=== PATIENT | male | born 1940 | race Caucasian/White ===

== ENCOUNTER 2021-10-22 10:50 | Inpatient (IN) | payer MEDICARE ==
[~2021-10-22] VITALS: Ht 172.7 cm; Wt 103.5 kg
[~2021-10-22 10:50] MED LIST: ACET-2650 PO; ALPRAZolam 0.25 MG (XANAX) TAB PO PRN; ATOR40TA70 PO; BISACODYL 10 MG SUPP (DULCOLAX) PR PRN; CALCIUM CARBONATE 500 MG (TUMS) TAB.CHEW PO PRN; CARB1TAB40 PO; CLOP75TA69 PO; DOCUSATE SODIUM 100 MG (COLACE) CAP PO PRN; FLEET ENEMA ADULT 1 EA BTL PR PRN; LACTULOSE SYRUP 10GM/15ML (ENULOSE) 30ML UDC PO PRN; LISI20TA26 PO; LOPERAMIDE 2 MG (IMODIUM) TABLET PO PRN; MELATONIN 3 MG TABLET PO PRN; OMEP10CA5 PO; diphenhydrAMINE 25 MG TAB (BENADRYL) PO PRN; guaiFENesin/CODEINE (ROBITUSSIN AC) 10ML UDC PO PRN
[2021-10-22 11:00] VITALS: BP 133/84
--- OUTSIDE RECORDS SUMMARY | 2021-10-22 11:07 | XMS REPORT | Encounter Summary ---
Author Author [facility] Organization [facility] Address Unknown Phone Unavailable Care Team Providers Care Supervisor Acoustical Tile Carpenters Name Role Phone Ivis King NP PCP Elida Alvarado MD Unavailable Reason for Visit * Reason Onset Date Comments Medication Refill 10/08/2021 Encounter Details Care Team Description Date Type Department Mingo Gautam MD [address] [place] [address] 10/08/2021 Refill Neurology: [facility] [address] [facility] 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 encounter Functional Status Date of Assessment Functional Status Response 06/26/2021 Does the patient have a hearing impairment: Yes 06/26/2021 Does the patient have a visual impairment: Yes 06/26/2021 Does the patient have impaired ambulation: Yes 06/26/2021 Does the patient have an activity of daily living No (ADL) impairment: 06/26/2021 Does the patient have an instrumental activity of Ye s daily living (IADL) impairment: Date of Assessment Cognitive Status Response 06/26/2021 Does the patient have a cognitive impairment: No documented as of this encounter Ordered Prescriptions Start Date End Date Prescription Sig Dispensed Refills 10/08/2021 carbidopa-levodopa CR Take two 180 tablet 5 (SINEMET CR) 25/100 mg tablets by tablet mouth three times daily. documented in this encounter Plan of Treatment Not on filedocumented as of this encounter Visit Diagnoses Not on filedocumented in this encounter Discontinued Medications Start Date End Date Medication Sig Discontinue Reason 06/26/2021 10/08/2021 carbidopa/levodopa CR Take one Reorder (SINEMET CR) 25/100 mg tablet by tablet mouth three times daily. documented as of this encounter Additional Health Concerns Noted Time Assessment 08/07/2021 2:56 PM CDT A fall risk assessment has been complet ed for the patient 08/07/2021 2:55 PM CDT PHQ-2 Depression Total Score: 1 documented as of this encounter Care Teams Start Date End Date Supervisor Acoustical Tile Carpenters Relationship Specialty 12/09/20 Ivis King NP PCP - General Nurse [address] [place] [address] 12/09/20 Elida Alvarado MD Neurology [address] [place] [id number] documented as of this encounter
--- OUTSIDE RECORDS SUMMARY | 2021-10-22 11:07 | XMS REPORT | Clinical Summary ---
Author Author [facility] Organization [facility] Address Unknown Phone Unavailable Care Team Providers Care Family Nurse Practitioner Name Role Phone Ivis King NP PCP Christiano, Elida TAVARES Unavailable Source Comments Some departments are not documenting in the electronic medical record. If you d o not see the information that you expected, contact Release of Information in [facility] [employer] Information Management department at [phone] for further assistan ce in locating additional records.[facility] Allergies Comments Active Allergy Reactions Severity Noted Date Adhesive Tape-Silicones RASH Medium 2015 Bad rash all over Penicillins RASH High 02/12/2012 Sulfa (Sulfonamide HIVES, High 02/12/2012 Antibiotics) UNKNOWN Medications End Date Status Medication Sig Dispensed Refills Start Date Active carvediloL (COREG) 3.125 Take 3.125 mg 0 06/21 mg tablet by mouth 1 twice daily with meals. Active lisinopriL (ZESTRIL) 20 Take 20 mg by 0 mg tablet mouth twice 1 daily. Active rosuvastatin (CRESTOR) 5 Take 10 mg by 0 05/28 mg tablet mouth daily. 0 Active citalopram (CELEXA) 10 mg TAKE 1 TABLET 0 tablet BY MOUTH ONCE 1 DAILY FOR DEPRESSION Active albuterol sulfate (PROAIR Inhale 2 0 HFA) 90 mcg/actuation HFA puffs by 1 aerosol inhaler mouth into the lungs every 6 hours as needed. Active omeprazole DR (PRILOSEC) Take 10 mg by 0 09/26 10 mg capsule mouth every 8 24 hours as needed. Active aspirin EC 81 mg tablet Take 81 mg by 0 mouth daily. Take with food. Active docusate (COLACE) 100 mg Take 100 mg 0 capsule by mouth twice daily. Active carbidopa-levodopa CR Take two 180 tablet 5 09/24 (SINEMET CR) 25/100 mg tablets by 1 tablet mouth three times daily. 10/08/2021 Discontinued (Reorder) carbidopa/levodopa CR Take one 90 tablet 5 (SINEMET CR) 25/100 mg tablet by 1 tablet mouth three times daily. Active Problems Not on file Encounters Care Team Description Date Type Specialty Mingo Gautam MD 10/08/2021 Refill Neurology Mingo Gautam MD Parkinsonism, unspecified Parkinsonism t ype (HCC) (Primary Dx) 08/07/2021 Office Visit Neurology 08/07/2021 Travel from Last 3 Months Immunizations Name Administration Dates Next Due COVID-19 (MODERNA), mRNA 12/19/2020, 11/15/2020 vacc, 100 mcg/0.5 mL (PF) Surgical History Surgery Date Site/Laterality Comments HERNIA REPAIR x2 PROSTATE SURGERY 10/25/2005 - 10/24/2006 Medical History Medical History Date Comments Arthritis Hypertension Abnormal involuntary movement Ischemic stroke (HCC) Meningioma (HCC) Family History Medical History Relation Name Comments Cancer Father Cancer Mother Parkinson's Neg Hx Tremor Neg Hx Relation Name Status Comments Father Mother Social History Date Tobacco Use Types Packs/Day Years Used Never Smoker Smokeless Tobacco: Never Used Comments Alcohol Use Standard Drinks/Week Not Currently 0 (1 standard drink = 0.6 o z pure alcohol) Sex Assigned at Date Recorded 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 Vital Signs Reading Time Taken Comments Vital Sign 152/79 08/07/2021 2:50 PM CDT Blood Pressure 67 08/07/2021 2:50 PM CDT Pulse - - Temperature - - Respiratory Rate - - Oxygen Saturation - - Inhaled Oxygen Concentration 104.3 kg (230 lb) 08/07/2021 2:50 PM CDT Weight 172.7 cm (5' 8") 06/26/2021 1:32 PM CDT Height 34.97 06/26/2021 1:32 PM CDT Body Mass Index Plan of Treatment Health Maintenance Due Date Last Done Comments MEDICARE ANNUAL WELLNESS 1940 VISIT DTAP/TDAP VACCINES (1 - 1957 Tdap) PHYSICAL (COMPREHENSIVE) 1957 EXAM SHINGLES RECOMBINANT 1989 VACCINE (1 of 2) PNEUMONIA (PPSV23) 2004 VACCINE (1 of 1 - PPSV23) INFLUENZA VACCINE 05/25/2021 COVID-19 VACCINE (3 - 06/18/2021 12/19/2020, Booster for Moderna 11/15/2020 series) Results Not on filefrom Last 3 Months Insurance Type Payer Benefit Subscriber ID Effective Phone Address Plan / Dates Group Medicare MEDICARE MEDICARE [id number] 2004-P [phone] [address] [place] [address] Medicare BCBS [place] BCBS [id number] 2020-P [phone] [id number] [place] [address] Advance Directives 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
--- NOTE | 2021-10-22 12:14 | Occupational Therapy Eval ---
OT Evaluation-General/PLF Medical Diagnosis Admission Date Oct 22, 2021 at 10:50 Medical Diagnosis: s/p ORIF for R ankle fx Onset Date: Oct 16, 2021 Therapy Diagnosis Therapy Diagnosis: Decreased adl status, impaired balance, endurance, strength, cognition Precautions Precautions/Isolations: Fall Prevention, Standard Precautions Weight Bear Status RLE NWB without boot, WBAT with cam boot Referral Physician: Anali Referral Reason: Evaluation/Treatment Medical History Pertinent Medical History: CVA, HTN, Parkinson's Current History Pt reports falling in between steering wheel and seat in tractor after legs gave out. Found to have R ankle fracture. S/p ORIF, WBAT with cam boot. Pt also with mobile cardiac telemetry. Per instructions provided with patient, equipment able to get wet in shower but no submerging in tub/pool. Reviewed History: Yes Social History Home: Single Level Current Living Status: Spouse Entry Into Home: Jonathan Reports living with his in a single story home. Indep with adls prior to ad mission. Reports he cooks simple meals such as breakfast, otherwise completes all other iadls. Pt uses a FWW inside the home and a cane/walking stick outside of the home. He reports having a Stroke in December 2020 with no residual effects. 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 2-Wcohefdahg-zvpzeby completes the activity by him/herself with no assistance from a helper. 5-Set-up or Clean-up Assistance-helper sets up or cleans up; patient completes activity. [place] assists only prior to or following the activity. 4-Supervision or Touching Assistance-helper provides verbal cues and/or touching/steadying and/or contact guard assistance as patient completes activity. Assistance may be provided throughout the activity or intermittently. 3-Partial/Moderate Assistance-helper does LESS THAN HALF the effort. [place] lifts, holds or supports trunk or limbs, but provides less than half the effort. 2-Substantial/Maximal Assistance-helper does MORE THAN HALF the effort. [place] lifts or holds trunk or limbs and provides more than half the effort. 9-Ytnigvruh-vitvqy does ALL the effort. Patient does none of the effort to co mplete the activity. Or, the assistance of 2 or more helpers is required for the patient to complete the activity. If activity was not attempted, code reason: 7-Patient Refused. 9-Not Applicable-not attempted and the patient did not perform the activity before the current illness, exacerbation or injury. 10-Not Attempted due to Environmental Limitations-(lack of equipment, weather restraints, etc.). 88-Not Attempted due to Medical Conditions or Safety Concerns. Self Care: Independent Functional Cognition: Independent DME/Equipment: Grab Bars, Shower Drive Self: Yes OT Current Status Subjective Denies pain, agreeable to eval/treatment. Co-treat with PT for part of session secondary to poor patient mobility, strength, endurance, severe debility, coordinate UE and LE with activity, safety and reduce risk of falls. Appearance Left supine in bed, all needs within reach. Mental Status/Objective Patient Orientation: Person, Place Attachments: Telemetry, Other-See Comments (mobile cardiac telemetry-can get wet) Current Hearing Aids: No Dentures/Partials: No Hand Dominance: Right Upper Extremity ROM Impaired R shoulder AROM, reports due to arthritis. ~110 degrees Elbow-distally WNL Upper Extremity Strength R shoulder: 3-/5 L shoulder: 3+/5 Elbow-distally: WFL ADL-Treatment Eating (QC): 5 Oral Hygiene (QC): 3 Shower/Bathe Self (QC): 2 Upper Body Dressing (QC): 10 Lower Body Dressing (QC): 3 On/Off Footwear (QC): 4 Toileting Hygiene (QC): 2 Partial sponge bath performed seated in w/c. Cues needed to initiate task. Mod A for balance as he stood to wash oren area, dependent to wash backside. Poor standing tolerance and compliance to NWB limits pt's ability to complete task in standing and thus would require assist to wash below thighs if performed at baseline (standing). LE's not addressed. In sitting pt is able to demonstrate ability to cross LLE to don/doff sock and thus likely able to wash feet in same manor. RLE with splint/bandage. With extra time he was able to thread BLE's into brief. Mod a required for clothing management. Per chart, pt WBAT with cam boot, yet boot not currently available. He verbalizes that his will be bringing extra clothing and boot later in day. Other Treatments Pt performed static standing in parallel bars, unable to maintain NWB. Pt may do better once cam boot is available. Several cues needed for adherence and safety throughout all transfers. He fatigues easily and requires several lengthy rest breaks. Initially sit<>stand: min A. As fatigue worsens, pt requires more lifting assist; mod-max a. Education OT Patient Education: Correct positioning, Disease process, Energy conservati on, Modified ADL techniques, Progress toward Goal/Update tx plan, Purpose of tx/functional activities, Reviewed precautions, Rehab process, Safety issues, Transfer techniques, W/C management Teaching Recipient: Patient Teaching Methods: Demonstration, Discussion Response to Teaching: Verbalize Understanding, Return Demonstration, Reinforcement Needed OT Short Term Goals Short Term Goals Time Frame: Oct 31, 2021 Eatin Oral hygiene: 5 Toileting hygiene: 3 Shower/bathe self: 3 Upper body dressin Lower body dressin Putting on/taking off footwear: 3 (including cam boot) OT City Manager Goals Senior Care Goals Time Frame: Nov 12, 2021 Eating (QC): 6 Oral Hygiene (QC): 6 Toileting Hygiene (QC): 5 Shower/Bathe Self (QC): 5 Upper Body Dressing (QC): 6 Lower Body Dressing (QC): 5 On/Off Footwear (QC): 5 1=Demonstrate adherence to instructed precautions during ADL tasks. 2=Patient will verbalize/demonstrate understanding of assistive devices/modifications for ADL. 3=Patient will improve strength/tolerance for activity to enable patient to perform ADL's. OT Education/Plan Problem List/Assessment Assessment: Decreased Activ Tolerance, Decreased Safety Aware, Decreased UE Strength, Impaired Cognition, Impaired Funct Balance, Impaired I ADL's, Impaired Self-Care Skills, Restricted Funct UE ROM Discharge Recommendations Plan/Recommendations: Continue POC Therapy Discharge Recommendati: Scheduled Assistance, Homemaker Support, Home & Family, Post Acute OT Equpiment Recommendations-D/C: Bath Chair, Toilet Riser Target Placement Home health with family support Treatment Plan/Plan of Care Treatment,Training & Education: Yes Patient would benefit from OT for education, treatment and training to promote independence in ADL's, mobility, safety and/or upper extremity function for ADL's. Plan of Care: ADL Retraining, Functional Mobility, Group Exercise/Act as Ind, Orthotic Fitting/Training, UE Funct Exercise/Act, W/C Management Training Treatment Duration: Nov 12, 2021 Frequency: At least 5 of 7 days/Wk (IRF) Estimated Hrs Per Day: 1.5 hours per day Agreement: Yes Time/GCodes Start Time: 11:00 Stop Time: 12:15 Total Time Billed (hr/min): 75 Billed Treatment Time 1 visit EVM (10 min) ADL x2 (35 min) FA x2 (30 min) PT eval from [id number], OT eval from [id number], co-treated from [id number] Rosalee Laguna OT Oct 22, 2021 12:14
--- NOTE | 2021-10-22 12:47 | Physical Therapy Evaluation ---
PT Evaluation-General Medical Diagnosis Admission Date Oct 22, 2021 at 10:50 Medical Diagnosis: right ankle fx, ORIF Onset Date: Oct 16, 2021 Therapy Diagnosis Therapy Diagnosis: impaired mobility, strength, endurance Precautions Precautions/Isolations: Fall Prevention, Standard Precautions Weight Bear Status Patient is NWB on the right leg without the CAM boot and apparently is weight bearing on the right leg with the CAM boot but is unclear how much Referral Physician: Elsi Briones DO Reason for Referral: Evaluation/Treatment Medical History Pertinent Medical History: CVA, HTN, Parkinson's Reviewed History: Yes Social History Home: Single Level Current Living Status: Spouse Entry Into Home: Ramp Prior Prior Level of Function SCALE: Activities may be completed with or without assistive devices. 7-Jtwtuutaoe-qfgqplj completes the activity by him/herself with no assistance from a helper. 5-Set-up or Clean-up Assistance-helper sets up or cleans up; patient completes activity. [place] assists only prior to or following the activity. 4-Supervision or Touching Assistance-helper provides verbal cues and/or touching/steadying and/or contact guard assistance as patient completes activity. Assistance may be provided throughout the activity or intermittently. 3-Partial/Moderate Assistance-helper does LESS THAN HALF the effort. [place] lifts, holds or supports trunk or limbs, but provides less than half the effort. 2-Substantial/Maximal Assistance-helper does MORE THAN HALF the effort. [place] lifts or holds trunk or limbs and provides more than half the effort. 1-Ihiizcbbd-btzopc does ALL the effort. Patient does none of the effort to complete the activity. Or, the assistance of 2 or more helpers is required for the patient to complete the activity. If activity was not attempted, code reason: 7-Patient Refused. 9-Not Applicable-not attempted and the patient did not perform the activity before the current illness, exacerbation or injury. 10-Not Attempted due to Environmental Limitations-(lack of equipment, weather restraints, etc.). 88-Not Attempted due to Medical Conditions or Safety Concerns. Bed Mobility: 6 Transfers (B,C,W/C): 6 Gait: 6 Indoor Mobility (Ambulation): Independent Prior Devices Use: Walker used a walker in the home and cane/walking stick outside the home PT Evaluation-Current Subjective [facility], agrees to PT, has no complaints of pain. Will be co-treating with OT for part of tx due to poor patient mobility, strength, endurance, severe debility, coordinate UE and LE with activity, safety and reduce risk of falls. Pt/Family Goals to be independent at home Objective Patient Orientation: Person, Place, Situation right ankle splint ROM/Strength ROM Lower Extremities WNL, right ankle not tested Strength Lower Extremities LLE (hip flexion 3+/5, knee flexion 5/5, knee extension 5/5, dorsiflexion 4/5), RLE (hip flexion 3+/5, knee flexion 5/5, knee extension 5/5) Sensory Vision: Functional Hearing: Impaired Hand Dominance: Right Sensation Right Lower Extremit: Intact Sensation Left Lower Extremity: Intact Transfers Roll Left & Right (QC): 6 Sit to Lying (QC): 3 Lying to Sitting/Side of Bed(Q: 3 Sit to Stand (QC): 3 Chair/Cqv-hq-Hbkbv Xfer(QC): 3 Toilet Transfer (QC): 3 Car Transfer (QC): 3 Patient performs rolling independently, supine to sit mod assist, sit to supine min assist, sit <-> stand min assist, transfers min assist, car transfer min assist. Patient needs a lot of cues for positioning and safety, some assist with moving walker. Gait Does the Patient Walk?: Yes Mode of Locomotion: Walk Anticipated Mode of Locomotion: Walk Walk 10 feet (QC): 88 Walk 50 ft with 2 Turns(QC): 88 Walk 150 ft (QC): 88 Walking 10ft/uneven surface-QC: 88 Distance: 2' Gait Assistive Device: Parallel Bars Comments/Gait Description Patient can ambulate 2' in the parallel bars with CGA. Patient is not able to maintain NWB effectively (doesn't have CAM boot here at this time) so this activity was stopped. Wheelchair Training Does the Pt Use a Wheelchair?: Yes Distance: 150' Wheel 50 ft with 2 turns (QC): 4 Wheel 150 ft (QC): 4 Type of Wheelchair: Manual Stairs 1 Step (curb) (QC): 88 4 Steps (QC): 88 12 Steps (QC): 88 Balance Sitting Static: Normal Sitting Dynamic: Normal Standing Static: Poor Standing Dynamic: Poor Picking up an Object (QC): 88 Treatment Patient stood in the parallel bars a couple of times for about a minute each time. Patient also had to have a BM after getting here, transferred to commode with min assist, was dressed partway, stood when done and total assist for cleaning and completed dressing. PT performed bed mobility and transfer training, ambulation, WC mobility, standing and positioning during toileting and dressing, standing in parallel bars, OT performed toileting, dressing, UE positioning and safety during activity. Assessment/Needs Patient in bed post tx with nurse call, phone, tray, all needs met. Patient has impaired mobility, strength, endurance. He has a hard time maintaining NWB on right leg. Rehab Potential: Fair PT Short Term Goals Short Term Goals Time Frame: Oct 29, 2021 Roll Left & Right: 6 Sit to lyin Lying to sitting on side of be: 3 Sit to stand: 4 Chair/zeh-jm-csldi transfer: 4 Walk 10 feet: 4 PT [employer] Goals [employer] Goals PT [employer] Goals Time Frame: Nov 12, 2021 Roll Left & Right (QC): 6 Sit to Lying (QC): 6 Lying-Sitting on Side/Bed(QC): 6 Sit to Stand (QC): 4 (SBA) Chair/Xee-mk-Nskzh Xfer(QC): 4 (SBA) Toilet Transfer (QC): 4 (SBA) Car Transfer (QC): 4 (SBA) Does the Patient Walk: Yes Walk 10 feet (QC): 4 (GA) Walk 50ft with 2 Turns (QC): 4 (CGA) Walk 150 ft (QC): 88 Walking 10ft on Uneven Surface: 4 (CGA) 1 Step (curb) (QC): 88 4 Steps (QC): 88 12 Steps (QC): 88 Picking up an Object (QC): 4 (CGA) Wheel 50 feet with 2 turns (QC: 6 Wheel 150 feet: 6 PT Plan Problem List Problem List: Activity Tolerance, Functional Strength, Safety, Balance, Gait, Transfer, Bed Mobility, ROM Treatment/Plan Treatment Plan: Continue Plan of Care Treatment Plan: Bed Mobility, Education, Functional Activity Nona, Functional Strength, Group Therapy, Gait, Safety, Therapeutic Exercise, Transfers Treatment Duration: Nov 12, 2021 Frequency: At least 5 of 7 days/Wk (IRF) Estimated Hrs Per Day: 1.5 hours per day Patient and/or Family Agrees t: Yes Safety Risks/Education Patient Education: Gait Training, Transfer Techniques, Reviewed Precautions, Correct Positioning, W/C Management, Safety Issues Teaching Recipient: Patient Teaching Methods: Demonstration, Discussion Response to Teaching: Reinforcement Needed Discharge Recommendations Plan Patient will perform bed mobility and transfer training, balance and endurance training, functional strengthening, gait training, and education, to improve functional mobility and independence at home. Therapy Discharge Recommendati: Scheduled Assistance, Home & Family, Post Acute PT Time/GCodes Time In: 1050 Time Out: 1215 Total Billed Treatment Time: 75 Total Billed Treatment 1 visit EVM 10' FA 65' PT eval from [id number], OT eval from [id number], co-treated from [id number] KAPIL CHÁVEZ PT Oct 22, 2021 12:47
--- NOTE | 2021-10-22 12:51 | PM&R Post Admission Assessment ---
PM&R Date of Visit: Oct 22, 2021 Time of Visit: 12:45 History of Present Illness CC: Right ankle ORIF with subacute CVA HPI: This is a male patient from [place] who presents from [facility] s/p ORIF of the right ankle due to a fracture sustained in fall getting out of his tractor. His hospital course was complicated due to a subacute stroke on the right side but not the cause of the fall or right-sided weakness. Current level of functioning will need aggressive therapy with use of assistive devices to return to independent living with his . 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 He will use a cam boot. I did review carotid ultrasound and entire cardiology work-up and they recommended statin therapy and close monitoring of bradycardia. Past Cylruju-Zaarbu-Ebdcrr Hx Past Med/Social Hx: Reviewed Nursing Past Med/Soc Hx, Reviewed and Corrections made Patient Social History Marrital Status: Employed/Student: retired ([employer]) Alcohol Use: Denies Use Smoking Status: Former Smoker Immunizations Up To Date Date of Influenza Vaccine: Jul 15, 2021 Past Medical History Surgeries: Orthopedic Respiratory: Sleep Apnea Currently Using CPAP: No Currently Using BIPAP: No Cardiac: High Cholesterol, Hypertension Neurological: Parkinson's Disease, Stroke Genitourinary: Prostate Problems, Renal Failure Musculoskeletal: Degenerate Disk Disease, Arthritis Cancer: Prostate What Type of Treatment Did You: Surgical Intervention Skin/Integumentary: Eczema Self Care: Independent Functional Cognition: Independent Drive Self: Yes PM&R Allergy/Meds/Data Review Allergies Coded Allergies: No Allergy Information Available (Unverified , 10/21/21) Home Medications Scheduled Atorvastatin Calcium (Atorvastatin Calcium), 40 MG PO HS, (Reported) Carbidopa/Levodopa (Carbidopa-Levo ER 25-100 Tab), 1 EACH PO TID, (Reported) Clopidogrel Bisulfate (Plavix), 75 MG PO DAILY, (Reported) Lisinopril (Lisinopril), 20 MG PO DAILY, (Reported) Scheduled PRN Acetaminophen (Tylenol Arthritis), 650 MG PO BID PRN for PAIN-MILD (1-4), (Reported) Omeprazole (Omeprazole), 10 MG PO DAILY PRN for HEARTBURN, (Reported) Current Medications Current Medications Reviewed Review of Systems Constitutional: see HPI, malaise, weakness EENTM: no symptoms reported Respiratory: no symptoms reported Cardiovascular: no symptoms reported Gastrointestinal: no symptoms reported Genitourinary: incontinence Musculoskeletal: back pain, joint pain Skin: no symptoms reported Psychiatric/Neurological: Anxiety, Depressed, Weakness All Other Systems Reviewed Negative Unless Noted: Yes Physical Exam Physical Exam Vital Signs Vital Signs - First Documented 10/22/21 11:00 Temp 36.2 Pulse 73 Resp 18 B/P (MAP) 133/84 (100) Pulse Ox 99 O2 Delivery Room Air Capillary Refill : Height, Weight, BMI Height: '" Weight: lbs. oz. kg; BMI Method: General Appearance: No Apparent Distress, WD/WN, Chronically ill, Obese Eyes: Bilateral Eye Normal Inspection, Bilateral Eye PERRL HEENT: PERRL/EOMI, Normal ENT Inspection, Pharynx Normal Neck: Full Range of Motion, Normal Inspection, Non Tender, Supple, Carotid Bruit Respiratory: Chest Non Tender, Lungs Clear, Normal Breath Sounds, No Accessory Muscle Use, No Respiratory Distress Cardiovascular: Regular Rate, Rhythm, No Edema, No Gallop, No JVD, No Murmur, Normal Peripheral Pulses Gastrointestinal: Normal Bowel Sounds, No Organomegaly, No Pulsatile Mass, Non Tender, Soft Back: Normal Inspection, No CVA Tenderness, No Vertebral Tenderness Extremity: Normal Capillary Refill, Normal Inspection, Normal Range of Motion (Except right ankle), Non Tender, No Calf Tenderness, No Pedal Edema Neurologic/Psychiatric: Alert, Oriented x3, No Motor/Sensory Deficits, Normal 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, 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 Norm as Tested, Abnormal Gait, Motor Weakness Skin: Normal Color, Warm/Dry Lymphatic: No Adenopathy PM&R Medical Assessment & Plan REHAB/MEDICAL ASSESSMENT AND PLAN: REHAB IMPAIRMENT GROUP: Right ankle fracture ETIOLOGIC DIAGNOSIS: Right ankle fracture The comorbidities that impact the patients function and/or functional outcome by: Advanced age, Parkinson's, fall risk, recent CVA REHAB PLAN: The patient is being admitted to our comprehensive inpatient rehabilitation facility and can tolerate the intensity of service consisting of at least: 180 minutes of therapy a day, 5 out of 7 days a week Rehab treatment will consist of: PT and OT will focus on regaining ambulatory function with use of Cam boot and increase independence in ADLs in order to return back to independent living The patient/family has a good understanding of our discharge process and will benefit from an interdisciplinary inpatient rehabilitation program. The patient has potential to make improvement and is in need of at least two of the following multidisciplinary therapies including but not limited to physical, occupational, speech, and prosthetics and orthotics. Additionally the patient will need services from respiratory, nutritional services, wound care, psychology, etc. (Customize this to each patient). Given the patients complex condition and risk of further medical complications, rehabilitation services cannot be safely or effectively provided at a lower level of care such as a custodial facility. BARRIERS TO DISCHARGE: Advanced age ESTIMATED LOS: 10 days DISPOSITION: Home RELEVANT CHANGES SINCE PREADMISSION SCREENING: I have compared the patients medical and functional status at the time of the preadmission screening and there are: No changes PROGNOSIS: Fair REHABILITATION GOALS: 1. PT and OT will focus on regaining ambulatory function with use of Cam boot and increase independence in ADLs in order to return back to independent living All the above goals were reviewed with the patient and he/she is in agreement. By signing this document, I acknowledge that I have personally performed a full physical examination on this patient within 24 hours of admission to this inpatient rehabilitation facility and have determined the patient to be able to tolerate the above course of treatment at an intensive level for a reasonable period of time. I will be completing a detailed individualized Plan of Care for this patient by day #4 of the patients stay based upon the Preadmission Screen, the Post-Admission Evaluation, and the therapy evaluations. Admission Dx/Comorbidities: (1) Ankle fracture, right ICD Codes: S82.891A - Other fracture of right lower leg, initial encounter for closed fracture (2) Parkinsons ICD Codes: G20 - Parkinson's disease (3) Bradycardia ICD Codes: R00.1 - Bradycardia, unspecified (4) CVA (cerebral vascular accident) ICD Codes: I63.9 - Cerebral infarction, unspecified Assessment/Plan Assessment and Plan Assess & Plan/Chief Complaint Assessment: 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 Hypertension Hyperlipidemia FRANK Prostate cancer history Urinary incontinence Plan: Inpatient rehab protocol Supportive care Pain control VANNESA PARDO DO Oct 22, 2021 12:51
[2021-10-22] MEDS ORDERED: CARBIDOPA 25 MG PO SCH (13:00)
--- NOTE | 2021-10-22 13:24 | ST Cognitive Linguistic Eval ---
Speech Evaluation-General Medical Diagnosis s/p ORIF for R ankle fx Onset Date: Oct 16, 2021 Therapy Diagnosis Therapy Diagnosis: Cognitive Linguistic Function WNL Precautions Precautions: Fall Precautions/Isolations: Standard Precautions Referral Referring Physician: Dr. Briones Reason for Referral: Evaluation/Treatment Medical History Pertinent Medical History: CVA, HTN, Parkinson's Current History The patient is an 80 year-old male with a past medical history of high cholesterol, HTN, Parkinson's disease, stroke, renal failure, degenerative disk disease, arthrtis, and eczema, who presents to [facility] from [facility] following an ORIF of the right ankle due to a fracture sustained in fall getting out of his tractor. His hospital course was complicated due to a subacute stroke on the right side but not the cause of the fall or right-sided weakness. Reviewed History: Yes Social History Current Living Status: Spouse Speech PLF-Current Status Prior Level of Function The patient wishes to return home with the aid of his . Subjective The patient was lying in his bed, awake and alert upon entrance to his room. The patient has a family member present at bedside. The patient denied challenges or difficulties with his speech, language, cognition or swallowing. Language Eval: Auditory Comprehends Simple Yes/No Ques: Functional Indent/Objects Multiple Rizo: Functional Ident/Pics in Multiple Rizo: Functional Follows 1-Step Commands: Functional Follows Complex Directions: Functional Follows General Conversations: Functional Language Eval: Verbal Language Completes Spontaneous Greeting: Functional Produces Auto, Serial Info: Functional Imitates Simple Words/Phrases: Functional Word Finding: Mild Requests Basic Needs: Functional States Basic Personal Info: Functional Expresses Complex Ideas: Functional Language Evaluation: Reading Comprehends Single Nouns: Functional Follows Simple Written Direct: Functional Language Evaluation: Writing Writes to Simple Dictation: Functional Cognitive Patient Orientation The patient is independently oriented to self, location, city, month, day of w takot[place], date, and year. Objective Cognitive Domain Attention: WNL Memory: Mild Problem Solving: Functional Executive Functions: WNL Visuospatial Skills: WNL Composite Severity Rating: WNL Clock Drawing Severity Rating: WNL Objective Formal/Standardized Tests [facility] Mental Status ([facility]) Results The patient displayed a result of +29/30 on the UMS correlating to a neurocognitive function within normal limits. Oral Motor/Speech Production The patient does not display dysarthria or apraxia of speech throughout the evaluation. The patient remains 100% intelligible in known and unknown contexts. Impression The patient is an 80 year-old male, who presents with neurocognitive function within normal limits. The patient displayed one error with recall of five words following an approximate five minute delay. The patient was able to recall the missing item with a category cue. No additional errors were demonstrated. To note, the patient does state he wears reading glasses. Speech Patient Assess Expression of Ideas/Wants: Exhibits (3) Understanding Verbal Content: Understands (4) Brief Interview-Mental Status: Yes Repetition of Three Words: Three (3) Temporal Orientation: Year: Correct (3) Temporal Orientation: Month: Accurate within 5 days(2) Temporal Orientation: Day: Correct (1) Recall : Wear to say "Sock": Yes, no cue required (2) Recall : Color: Yes, no cue required (2) Recall : Bed: Yes,after cueing (1) Memory/Recall Ability: Current season, That he or she is in a hsp/hsp unit Speech-Plan Treatment Plan Speech Therapy Treatment Plan: Discontinue ST Frequency: 1 time per week Estimated Hrs Per Day: .5 hour per day Rehab Potential: Fair Barriers to Learning: None identified. Pt/Family Agrees to Plan: Yes Safety Risks/Education Teaching Recipient: Patient, Family Teaching Methods: Discussion Response to Teaching: Verbalize Understanding Education Topics Provided: Results of ANGEL Plan of Care Time Speech Therapy Time In: 12:15 Speech Therapy Time Out: 12:45 Total Billed Time: 30 Billed Treatment Time 1, DIRK WALKER [facility] Oct 22, 2021 13:24
[2021-10-22] MEDS: SINEMET 25/100 (CARBIDOPA/LEVODOPA) TAB PO SCH ×2 (13:45→20:08)
[2021-10-22] MEDS: DOCUSATE SODIUM 100 MG (COLACE) CAP PO SCH ×3 (14:11→19:37)
[2021-10-22] MEDS: SENNA W/DOCUSATE (SENOKOT S) TABLET PO SCH ×3 (14:11→19:37)
[2021-10-22] MEDS: polyethylene glycoL POWDER 17 GM (MIRALAX) PACK PO SCH ×3 (14:11→19:30)
[2021-10-22 20:00] VITALS: BP 131/89
[2021-10-23 07:22] VITALS: BP 158/74
[2021-10-23] MEDS: lisINopril 20 MG (PRINIVIL) TABLET PO SCH (08:22)
[2021-10-23] MEDS: CLOPIDOGREL 75 MG (PLAVIX) TABLET PO SCH (08:22)
[2021-10-23] MEDS: SINEMET 25/100 (CARBIDOPA/LEVODOPA) TAB PO SCH ×3 (08:22→20:11)
[2021-10-23] MEDS: PANTOPRAZOLE 20 MG TABLET (PROTONIX) PO SCH (08:23)
[2021-10-23] MEDS: DOCUSATE SODIUM 100 MG (COLACE) CAP PO SCH ×2 (08:26→20:12)
[2021-10-23] MEDS: ACETAMINOPHEN 325 MG TABLET PO PRN (08:26)
[2021-10-23] MEDS: polyethylene glycoL POWDER 17 GM (MIRALAX) PACK PO SCH ×2 (08:27→20:11)
[2021-10-23] MEDS: SENNA W/DOCUSATE (SENOKOT S) TABLET PO SCH ×2 (08:27→20:12)
--- NOTE | 2021-10-23 09:14 | Physical Therapy Daily Note ---
PT Daily Note-Current Subjective Patient rates pain in right ankle at 4/10 upon PT arrival, agreeable to treatment. Mental Status Patient Orientation: Person, Place, Time, Situation Transfers SCALE: Activities may be completed with or without assistive devices. 5-Acwgujnapr-rtnwyqk completes the activity by him/herself with no assistance from a helper. 5-Set-up or Clean-up Assistance-helper sets up or cleans up; patient completes activity. [place] assists only prior to or following the activity. 4-Supervision or Touching Assistance-helper provides verbal cues and/or touching/steadying and/or contact guard assistance as patient completes activity. Assistance may be provided throughout the activity or intermittently. 3-Partial/Moderate Assistance-helper does LESS THAN HALF the effort. [place] lifts, holds or supports trunk or limbs, but provides less than half the effort. 2-Substantial/Maximal Assistance-helper does MORE THAN HALF the effort. [place] lifts or holds trunk or limbs and provides more than half the effort. 6-Nrqmcgxqf-ulverk does ALL the effort. Patient does none of the effort to complete the activity. Or, the assistance of 2 or more helpers is required for the patient to complete the activity. If activity was not attempted, code reason: 7-Patient Refused. 9-Not Applicable-not attempted and the patient did not perform the activity before the current illness, exacerbation or injury. 10-Not Attempted due to Environmental Limitations-(lack of equipment, weather restraints, etc.). 88-Not Attempted due to Medical Conditions or Safety Concerns. Roll Left & Right (QC): 4 Sit to Lying (QC): 4 Lying to Sitting/Side of Bed(Q: 4 Sit to Stand (QC): 3 Chair/Whk-sl-Bqdck Xfer(QC): 3 Weight Bearing Right Lower Extremity: Right Non Weight Bearing othPatient is NWB on the right leg without the CAM boot and apparently is weight bearing on the right leg with the CAM boot but is unclear how much; Clarification from PT evaluation. After gait training, nurse brought Ortho notes from [facility] to this PT and states that "CAM boot is not appropriate at this time". Therefore, patient is still NWB in the right LE until follow up with orthopedic physician. Gait Training Distance: 160 Walk 10 feet (QC): 4 Walk 50 ft with 2 Turns(QC): 4 Walk 150 ft (QC): 4 Gait Persons Needed: 1 Gait Assistive Device: FWW Gait performed with CAM boot donned and WBAT in right LE prior to nurse clarifying order. Patient was informed of updated status and is aware of current NWB right LE. Wheelchair Training Does the Pt Use a Wheelchair?: Yes Wheel 50 ft with 2 turns (QC): 5 Wheel 150 ft (QC): 5 Type of Wheelchair: Manual Exercises Supine Ex: Ankle pumps, Quad Set, Glut sets Supine Reps: 20 Seated Therapy Exercises: Long arc quads, Hip flexion, Hamstring Curls, Hip abd/add Seated Reps: 20 Assessment Current Status: Fair Progress Patient tolerated treatment well. He was excited to be able to bear weight in his right LE with the CAM boot, after gait training, nurse brought Ortho notes from [facility] to this PT and states that "CAM boot is not appropriate at this time". Therefore, patient is still NWB in the right LE until follow up with orthopedic physician. Prior to this, patient performed all bed mobility with SBA, all transfers with min/mod A. Patient ambulates 160 feet with FWW, with CGA and verbal cues for safety, progression, posture and control of FWW. Gait training will be performed at the next visit with education focused on NWB right LE. Patient performed W/C mobility of 200 feet with SBA and verbal cues for safety. Patient performed LE therapeutic exercise in bed and in w/c. After educating patient of the updated weight bearing status back to NWB right LE, patient states "If I can't do it then I might as well end it all right now." "If I had something to do it with I'd end it." Nurse notified and appropriate action taken. Patient in w/c post treatment with all needs met, nursing in the room and call light in hand. PT Short Term Goals Short Term Goals Time Frame: Oct 29, 2021 Roll Left & Right: 6 Sit to lyin Lying to sitting on side of be: 3 Sit to stand: 4 Chair/nvw-mo-mvjcx transfer: 4 Walk 10 feet: 4 PT Showroom Sales Assistant Goals Showroom Sales Assistant Goals PT Mcfp Goals Time Frame: Nov 12, 2021 Roll Left & Right (QC): 6 Sit to Lying (QC): 6 Lying-Sitting on Side/Bed(QC): 6 Sit to Stand (QC): 4 (SBA) Chair/Pxl-tx-Kqjwt Xfer(QC): 4 (SBA) Toilet Transfer (QC): 4 (SBA) Car Transfer (QC): 4 (SBA) Does the Patient Walk: Yes Walk 10 feet (QC): 4 (GA) Walk 50ft with 2 Turns (QC): 4 (CGA) Walk 150 ft (QC): 88 Walking 10ft on Uneven Surface: 4 (CGA) 1 Step (curb) (QC): 88 4 Steps (QC): 88 12 Steps (QC): 88 Picking up an Object (QC): 4 (CGA) Wheel 50 feet with 2 turns (QC: 6 Wheel 150 feet: 6 PT Plan Treatment/Plan Treatment Plan: Continue Plan of Care Treatment Plan: Bed Mobility, Education, Functional Activity Nona, Functional Strength, Group Therapy, Gait, Safety, Therapeutic Exercise, Transfers Treatment Duration: Nov 12, 2021 Frequency: At least 5 of 7 days/Wk (IRF) Estimated Hrs Per Day: 1.5 hours per day Patient and/or Family Agrees t: Yes Safety Risks/Education Patient Education: Gait Training, Transfer Techniques, W/C Management Teaching Recipient: Patient Teaching Methods: Demonstration, Discussion Response to Teaching: Verbalize Understanding, Return Demonstration Time/GCodes Time In: 815 Time Out: 915 Total Billed Treatment Time: 60 Total Billed Treatment Visit, Ex, Gait, FA, w/c HOOD BROWER PT Oct 23, 2021 09:14
[2021-10-23 09:53] LABS: BASOPHILS % (AUTO) 1 % (0-10); EOSINOPHILS # (AUTO) 0.2 10^3/uL (0.0-0.3); EOSINOPHILS % (AUTO) 3 % (0-10); HEMATOCRIT 47 % (40-54); HEMOGLOBIN 15.4 g/dL (13.3-17.7); LYMPHOCYTES # (AUTO) 1.1 10^3/uL (1.0-4.0); LYMPHOCYTES % (AUTO) 17 % (12-44); MEAN CORPUSCULAR HEMOGLOBIN 30 pg (25-34); MEAN CORPUSCULAR HGB CONC 33 g/dL (32-36); MEAN CORPUSCULAR VOLUME 91 fL (80-99); MEAN PLATELET VOLUME 9.1 fL (9.0-12.2); MONOCYTES # (AUTO) 0.8 10^3/uL (0.0-1.0); MONOCYTES % (AUTO) 13 % (0-12); NEUTROPHILS # (AUTO) 4.1 10^3/uL (1.8-7.8); NEUTROPHILS % (AUTO) 65 % (42-75); PLATELET COUNT 258 10^3/uL (130-400); WHITE BLOOD COUNT 6.2 10^3/uL (4.3-11.0)
[2021-10-23 10:15] LABS: ALBUMIN 3.9 GM/DL (3.2-4.5); CALCIUM 9.5 MG/DL (8.5-10.1); CREATININE SERUM 0.9 MG/DL (0.60-1.30); POTASSIUM 4.1 MMOL/L (3.6-5.0); TOTAL PROTEIN 6.8 GM/DL (6.4-8.2)
--- NOTE | 2021-10-23 10:25 | PM&R Progress Note ---
Subjective HPI/CC On Admission Date Seen by Provider: Oct 23, 2021 Time Seen by Provider: 12:45 Subjective/Events-last exam 10/23/2021: Pt doing well Bowels are moving at the bedside Made some suicidal statements that weren't really suicidal Labs reviewed External monitor will require cardiology evaluation Weight-bearing as tolerated will be given because he will not do anything otherwise Review of Systems General: Fatigue, Malaise Musculoskeletal: leg pain Objective Exam Vital Signs Vital Signs Date Time Temp Pulse Resp B/P (MAP) Pulse Ox O2 Delivery O2 Flow Rate FiO2 10/23/21 21:28 Room Air 10/23/21 20:00 37.0 78 20 156/72 (100) 93 Capillary Refill : General Appearance: No Apparent Distress, WD/WN, Chronically ill, Obese HEENT: PERRL/EOMI, Normal ENT Inspection, Pharynx Normal Neck: Full Range of Motion, Normal Inspection, Non Tender, Supple, Carotid Bruit Respiratory: Chest Non Tender, Lungs Clear, Normal Breath Sounds, No Accessory Muscle Use, No Respiratory Distress Cardiovascular: Regular Rate, Rhythm, No Edema, No Gallop, No JVD, No Murmur, Normal Peripheral Pulses Gastrointestinal: Normal Bowel Sounds, No Organomegaly, No Pulsatile Mass, Non Tender, Soft Back: Normal Inspection, No CVA Tenderness, No Vertebral Tenderness Extremity: Normal Capillary Refill, Normal Inspection, Normal Range of Motion (Except right ankle), Non Tender, No Calf Tenderness, No Pedal Edema Neurologic/Psychiatric: Alert, Oriented x3, No Motor/Sensory Deficits, Normal Mood/Affect, powderer II-XII Norm as Tested, Abnormal Gait, Motor Weakness Skin: Normal Color, Warm/Dry Lymphatic: No Adenopathy Results/Procedures Lab Laboratory Tests 10/23/21 09:45 Patient resulted labs reviewed. FIM Transfers Therapy Code Descriptions/Definitions Functional [place] Measure: 0=Not Assessed/NA 4=Minimal Assistance 1=Total Assistance 5=Supervision or Setup 2=Maximal Assistance 6=Modified [place] 3=Moderate Assistance 7=Complete IndependenceSCALE: Activities may be completed with or without assistive devices. 6-Ghyhoxdzew-fiftfrm completes the activity by him/herself with no assistance from a helper. 5-Set-up or Clean-up Assistance-helper sets up or cleans up; patient completes activity. [place] assists only prior to or following the activity. 4-Supervision or Touching Assistance-helper provides verbal cues and/or touching/steadying and/or contact guard assistance as patient completes activity. Assistance may be provided throughout the activity or intermittently. 3-Partial/Moderate Assistance-helper does LESS THAN HALF the effort. [place] lift s, holds or supports trunk or limbs, but provides less than half the effort. 2-Substantial/Maximal Assistance-helper does MORE THAN HALF the effort. [place] lifts or holds trunk or limbs and provides more than half the effort. 7-Uzughxnak-ofgdag does ALL the effort. Patient does none of the effort to complete the activity. Or, the assistance of 2 or more helpers is required for the patient to complete the activity. If activity was not attempted, code reason: 7-Patient Refused. 9-Not Applicable-not attempted and the patient did not perform the activity before the current illness, exacerbation or injury. 10-Not Attempted due to Environmental Limitations-(lack of equipment, weather restraints, etc.). 88-Not Attempted due to Medical Conditions or Safety Concerns. Roll Left to Right (QC): 4 Sit to Lying (QC): 4 Sit to Stand (QC): 3 Chair/Jld-cf-Nbpyf Xfer(QC): 3 Car Transfer (QC): 3 Gait Training Does the Patient Walk?: Yes Distance: 160 Walk 10 feet (QC): 4 Walk 50 ft with 2 Turns(QC): 4 Walk 150 ft (QC): 4 Walking 10ft/uneven surface-QC: 88 Gait Persons Needed: 1 Gait Assistive Device: FWW Wheelchair Training Does the Pt Use a Wheelchair?: Yes Distance: 150' Wheel 50 ft with 2 turns (QC): 4 Wheel 150 ft (QC): 4 Type of Wheelchair: Manual Stair Training 1 Step (curb) (QC): 88 4 Steps (QC): 88 12 Steps (QC): 88 Balance Picking up an Object (QC): 88 ADL-Treatment Eating (QC): 5 Oral Hygiene (QC): 3 Shower/Bathe Self (QC): 2 Upper Body Dressing (QC): 10 Lower Body Dressing (QC): 3 On/Off Footwear (QC): 4 Toileting Hygiene (QC): 2 Assessment/Plan Assessment and Plan Assess & Plan/Chief Complaint Assessment: 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 Hypertension Hyperlipidemia FRANK Prostate cancer history Urinary incontinence Plan: Inpatient rehab protocol Supportive care Pain control 10/23/2021: Supportive care Pain control Cardiology consult (1) Ankle fracture, right (2) Parkinsons (3) Bradycardia (4) CVA (cerebral vascular accident) VANNESA PARDO DO Oct 23, 2021 10:25
--- NOTE | 2021-10-23 10:25 | Individualized Plan of Care ---
Individualized Plan of Care Rehab Nursing IPOC Order Admission Date Oct 22, 2021 at 10:50 Current Orders Orders Admission Order(Inpt,Obs,Sdc) (10/21/21 18:47) Vital Signs: Per Unit Policy ( ,16,00 (10/21/21 18:47) Mirza Estes (10/21/21 18:47) Sequential Compression Device (10/21/21 18:47) Medical Superintendent-Inpt Rehab Con (10/21/21 18:47) Rehab Nursing Orders-Ipoc (10/21/21 18:47) Physical Therapy Rehab Orders (10/21/21 18:47) Occupational Therapy Rehab Ord (10/21/21 18:47) Speech Therapy Rehab Orders (10/21/21 18:47) Precautions (Aru) (10/21/21 18:47) Weekly Weight WEEK (10/21/21 18:47) Rehab-Intensity Of Therapy (10/21/21 18:47) Initiate Admission Nursing Pro .admission (10/21/21 18:47) Alprazolam Tablet (Xanax Tablet) (10/21/21 19:00) Calcium Carbonate Chew Tablet (Antacid C (10/21/21 19:00) Diphenhydramine Tablet (Benadryl Tablet) (10/21/21 19:00) Docusate Sodium Capsule (Colace Capsule) (10/21/21 21:00) Docusate Sodium Capsule (Colace Capsule) (10/21/21 19:00) Bisacodyl Suppository (Dulcolax Supposit (10/21/21 19:00) Lactulose Oral Solution (Enulose Oral So (10/21/21 19:00) Na Phos/Na Biphos Enema (Fleet Enema Jorge L (10/21/21 19:00) Guaifenesin/Codeine Syrup (Robitussin Ac (10/21/21 19:00) Loperamide Tablet (Imodium Tablet) (10/21/21 19:00) Melatonin Tablet (Melatonin Tablet) (10/21/21 19:00) Polyethylene Glycol Powder Pkt (Miralax (10/21/21 21:00) Ondansetron Oral Dissolve Tab (Zofran (10/21/21 19:00) Senna S Tablet (Senokot S Tablet) (10/21/21 21:00) Acetaminophen Tablet/Caplet (Tylenol T (10/21/21 19:00) Code/Resuscitation (10/21/21 18:47) Sequential Compression Device ONCE (10/21/21 18:47) Initiate Admission Nursing Pro .admission (10/21/21 18:47) Cbc With Automated Diff (10/23/21 06:00) Comprehensive Metabolic Panel (10/23/21 06:00) Admission Arrival Bed Request (10/22/21 10:55) Heart Healthy (10/22/21 Lunch) Atorvastatin Tablet (Lipitor Tablet) (10/22/21 21:00) Clopidogrel Tablet (Plavix Tablet) (10/23/21 09:00) Lisinopril Tablet (Zestril Tablet) (10/23/21 09:00) Carbidopa Tab (Non-Formulary) (Lodosyn T (10/22/21 13:00) Pantoprazole Tablet (Protonix Tablet) (10/23/21 09:00) Hydrocodone/Apap 5/325 Tablet (Lortab 5 (10/22/21 13:00) Carbidopa/Levodopa 25/100 (Sinemet 25/10 (10/22/21 13:00) Patient Visit (10/22/21 ) Speech Sound Lang Comp (10/22/21 ) Treat. Speech/Lang/Voice (10/22/21 ) Consult Cardiology (10/23/21 10:43) Patient Visit (10/23/21 ) Gait Training, Ea 15 Min (10/23/21 ) Exercise Therap, Ea 15 Min (10/23/21 ) Functional Activities, Ea 15 (10/23/21 ) Wheelchair Mgmt/Propulsn 15min (10/23/21 ) Consult Orthopedic Surgery (10/23/21 16:09) Rehab Nursing Orders: Ongoing Assess. of Cognitive Status, Ongoing Assess. of Function Status, Bladder Management, Bladder Scan, Bladder Training, Bowel Management, Bowel Training, Disease Management & Educaiton, DVT Prophylaxis, Fall Prevention, Fluid/Electrolyte/Nutrition Mgmt, Infection Prevention, Medication Management & Education, Management of Risks & Complications, Ma nagement of Skin Intergrity, Nutrition Management, Pain Management, Patient/Family Support, Safety Management, Weight Bearing Precaution, Wound Management Intensity of Therapy to be met Patient to be seen: Min.3h per day/5 of 7d PT IPOC Problem List: Activity Tolerance, Functional Strength, Safety, Balance, Gait, T ransfer, Bed Mobility, ROM Treatment Plan: Continue Plan of Care Bed Mobility, Education, Functional Activity Nona, Functional Strength, Group Therapy, Gait, Safety, Therapeutic Exercise, Transfers Treatment Duration: Nov 12, 2021 Frequency: At least 5 of 7 days/Wk (IRF) Estimated Hrs Per Day: 1.5 hours per day OT IPOC Problems: Decreased Activ Tolerance, Decreased Safety Aware, Decreased UE Strength, Impaired Cognition, Impaired Funct Balance, Impaired I ADL's, Impaired Self-Care Skills, Restricted Funct UE ROM OT Treatment, Training and Edu: Yes Plan of Care: ADL Retraining, Functional Mobility, Group Exercise/Act as Ind, Orthotic Fitting/Training, UE Funct Exercise/Act, W/C Management Training Treatment Duration: Nov 12, 2021 Frequency: At least 5 of 7 days/Wk (IRF) Estimated Hrs Per Day: 1.[address] IPOC Speech Therapy Treatment Plan: Discontinue ST Treatment Duration: Oct 23, 2021 Frequency: Modified Program (IRF) Estimated Hrs Per Day: Other Medical Superintendent/Case Mgmt Medical Superintendent/Case Managemen: Discharge Planning Dietitian/Surveillance Specialist Dietitian/Surveillance Specialist to monitor nutritional status and make changes and/or recommendations as needed and work with speech pathology on dietary upgrades as the occur. Physician IPOC Medical Issues being managed closely and that require the 24 hour availability of a physician: Patient with recent CVA and right ankle fracture history of Parkinson's will require close monitoring for any falls and decompensation Medical Issues: Bowel/Bladder Function, DVT Prophylaxis, Falls Precautions, Fluid/Electrolyte/Nutrition Balance, Infection Protection, Pain Management, Wound Care Brief Synthesis of Preadmission Screen, Post-Admission Evaluation, and Therapy Evaluations: PT and OT will focus on use of assistive devices in order to minimize weightbearing on the right ankle but accommodate safe ambulation in order to regain independence and ADLs and return back to living with Medical Prognosis: Fair Anticipated Length of Stay: 10 days VANNESA PARDO DO Oct 23, 2021 10:25
--- NOTE | 2021-10-23 12:15 | Occupational Ther Daily Note ---
OT Current Status-Daily Note Subjective Denies pain, initially resistant to therapy. Appearance Left sitting in w/c, all needs within reach, in room. Mental Status/Objective Patient Orientation: Person, Place, Situation Attachments: IV CAM boot ADL-Treatment Therapy Code Descriptions/Definitions Functional [place] Measure: 0=Not Assessed/NA 4=Minimal Assistance 1=Total Assistance 5=Supervision or Setup 2=Maximal Assistance 6=Modified [place] 3=Moderate Assistance 7=Complete IndependenceSCALE: Activities may be completed with or without assistive devices. 2-Uduvwymgdo-hxwqdzr completes the activity by him/herself with no assistance from a helper. 5-Set-up or Clean-up Assistance-helper sets up or cleans up; patient completes activity. [place] assists only prior to or following the activity. 4-Supervision or Touching Assistance-helper provides verbal cues and/or touching/steadying and/or contact guard assistance as patient completes activity. Assistance may be provided throughout the activity or intermittently. 3-Partial/Moderate Assistance-helper does LESS THAN HALF the effort. [place] lifts, holds or supports trunk or limbs, but provides less than half the effort. 2-Substantial/Maximal Assistance-helper does MORE THAN HALF the effort. [place] lifts or holds trunk or limbs and provides more than half the effort. 5-Sqakageex-jhyssv does ALL the effort. Patient does none of the effort to complete the activity. Or, the assistance of 2 or more helpers is required for the patient to complete the activity. If activity was not attempted, code reason: 7-Patient Refused. 9-Not Applicable-not attempted and the patient did not perform the activity bef ore the current illness, exacerbation or injury. 10-Not Attempted due to Environmental Limitations-(lack of equipment, weather r estraints, etc.). 88-Not Attempted due to Medical Conditions or Safety Concerns. Oral Hygiene (QC): 5 Lower Body Dressing (QC): 3 On/Off Footwear: 2 Toileting Hygiene (QC): 3 Toilet Transfer (QC): 3 Pt sitting in w/c at therapy arrival. Irritable and reports that he is not going to participate any further. When asked reasoning, he states that his weight bearing status changed to NWB even with CAM boot donned. OT requested clarification from RN who ensures what pt has said is true. Pt verbalizes that he will not listen to the new order and that he will put weight on foot despite if boot is on or off. Physician present during conversation with RN and reports pt can be WBAT with boot donned. Pt more agreeable to participate once notified of doctors orders. Sit<>stand: min-mod a. Once upright, pt able to tolerate standing with CGA for safety. No c/o pain in LE's. Boot removed to don new brief. With extra time he was able to thread BLE's into brief. Steadying assist needed as he pulled brief over hips. Dependent to re-don boot. He sat to complete grooming activities with set up only. Attempt at shaving with electric razor. Due to thickness of santiago, pt was unable to complete. present during middle of session and reports she will bring in razors and clothing for tomorrows session. No appropriate size clothing available to don this date. Other Treatment Pt completed UE exercises with 2-3# hand held weight. 10-12 x1 in all planes. Several visual and tactile cues needed for correct technique as well as cues for control/speed of movement. Right wrist with notable weakness, thus limiting control when holding heavier weight. Thus, weight reduced to 2 pounds and reps increase to 12 with some movements. Education OT Patient Education: Correct positioning, Disease process, Energy conservation, Modified ADL techniques, Progress toward Goal/Update tx plan, Purpose of tx/functional activities, Reviewed precautions, Rehab process, Safety issues, Transfer techniques Teaching Recipient: Patient, Family Teaching Methods: Demonstration, Discussion Response to Teaching: Verbalize Understanding, Return Demonstration, Reinforcement Needed OT Short Term Goals Short Term Goals Time Frame: Oct 31, 2021 Eatin Oral hygiene: 5 Toileting hygiene: 3 Shower/bathe self: 3 Upper body dressin Lower body dressin Putting on/taking off footwear: 3 (including cam boot) OT Mcc Goals Labour Market Economist Goals Time Frame: Nov 12, 2021 Eating (QC): 6 Oral Hygiene (QC): 6 Toileting Hygiene (QC): 5 Shower/Bathe Self (QC): 5 Upper Body Dressing (QC): 6 Lower Body Dressing (QC): 5 On/Off Footwear (QC): 5 1=Demonstrate adherence to instructed precautions during ADL tasks. 2=Patient will verbalize/demonstrate understanding of assistive devices/modifications for ADL. 3=Patient will improve strength/tolerance for activity to enable patient to perform ADL's. OT Education/Plan Problem List/Assessment Assessment: Decreased Activ Tolerance, Decreased Safety Aware, Decreased UE Strength, Impaired Coordination, Impaired Funct Balance, Impaired Self-Care Skills, Restricted Funct UE ROM Discharge Recommendations Plan/Recommendations: Continue POC Treatment Plan/Plan of Care Treatment,Training & Education: Yes Patient would benefit from OT for education, treatment and training to promote independence in ADL's, mobility, safety and/or upper extremity function for ADL's. Plan of Care: ADL Retraining, Functional Mobility, Group Exercise/Act as Ind, Orthotic Fitting/Training, UE Funct Exercise/Act, W/C Management Training Treatment Duration: Nov 12, 2021 Frequency: At least 5 of 7 days/Wk (IRF) Estimated Hrs Per Day: 1.5 hours per day Agreement: Yes Rehab Potential: Fair Time/GCodes Start Time: 10:00 Stop Time: 11:30 Total Time Billed (hr/min): 90 Billed Treatment Time 1 visit ADL x 3 (50 min) EX x3 (40 min) Rosalee Laguan OT Oct 23, 2021 12:15
--- NOTE | 2021-10-23 14:51 | Physical Therapy Daily Note ---
PT Daily Note-Current Subjective Patient sitting in chair upon PT arrival, agreeable to treatment. Rates pain in right ankle at 4/10. Prior to treatment nurse reports she contacted the physician and was given orders for patient to continue WBAT right LE with the CAM boot donned. Mental Status Patient Orientation: Person, Place Transfers SCALE: Activities may be completed with or without assistive devices. 4-Yppdlwmoyg-abdqmhe completes the activity by him/herself with no assistance from a helper. 5-Set-up or Clean-up Assistance-helper sets up or cleans up; patient completes activity. [place] assists only prior to or following the activity. 4-Supervision or Touching Assistance-helper provides verbal cues and/or touching/steadying and/or contact guard assistance as patient completes activity. Assistance may be provided throughout the activity or intermittently. 3-Partial/Moderate Assistance-helper does LESS THAN HALF the effort. [place] lifts, holds or supports trunk or limbs, but provides less than half the effort. 2-Substantial/Maximal Assistance-helper does MORE THAN HALF the effort. [place] lifts or holds trunk or limbs and provides more than half the effort. 2-Lghovjkln-jmlcum does ALL the effort. Patient does none of the effort to complete the activity. Or, the assistance of 2 or more helpers is required for the patient to complete the activity. If activity was not attempted, code reason: 7-Patient Refused. 9-Not Applicable-not attempted and the patient did not perform the activity before the current illness, exacerbation or injury. 10-Not Attempted due to Environmental Limitations-(lack of equipment, weather restraints, etc.). 88-Not Attempted due to Medical Conditions or Safety Concerns. Roll Left & Right (QC): 4 Sit to Lying (QC): 4 Lying to Sitting/Side of Bed(Q: 4 Sit to Stand (QC): 3 Chair/Eua-kd-Eolfz Xfer(QC): 3 Weight Bearing Right Lower Extremity: Right Non Weight Bearing othPatient is NWB on the right leg without the CAM boot and apparently is weight bearing on the right leg with the CAM boot but is unclear how much; Clarification from PT evaluation. After gait training, nurse brought Ortho notes from [facility] to this PT and states that "CAM boot is not appropriate at this time". Therefore, patient is still NWB in the right LE until follow up with orthopedic physician. Gait Training Does the Patient Walk?: Yes Distance: 200 x 2 Walk 10 feet (QC): 4 Walk 50 ft with 2 Turns(QC): 4 Walk 150 ft (QC): 4 Gait Assistive Device: FWW Gait performed with CAM boot donned and patient reports no pain. Assessment Current Status: Good Progress Patient tolerated treatment well. Patient performs all observed bed mobility with SBA and transfers with min a. Patient ambulates 200 feetx 2 with FWW, with CGA and verbal cues for safety, progression, posture and conservation of energy. Patient requires 1 sitting rest break. Patient then performs bed mobility with verbal cues for proper movements, LEs raising into bed and pulling himself higher in the bed. Patient in bed post treatment with all needs met, nursing notified, call light in reach. PT Short Term Goals Short Term Goals Time Frame: Oct 29, 2021 Roll Left & Right: 6 Sit to lyin Lying to sitting on side of be: 3 Sit to stand: 4 Chair/xyt-zp-ajefv transfer: 4 Walk 10 feet: 4 PT Shelter Goals Shelter Goals PT Shelter Goals Time Frame: Nov 12, 2021 Roll Left & Right (QC): 6 Sit to Lying (QC): 6 Lying-Sitting on Side/Bed(QC): 6 Sit to Stand (QC): 4 (SBA) Chair/Lkr-df-Onkgg Xfer(QC): 4 (SBA) Toilet Transfer (QC): 4 (SBA) Car Transfer (QC): 4 (SBA) Does the Patient Walk: Yes Walk 10 feet (QC): 4 (GA) Walk 50ft with 2 Turns (QC): 4 (CGA) Walk 150 ft (QC): 88 Walking 10ft on Uneven Surface: 4 (CGA) 1 Step (curb) (QC): 88 4 Steps (QC): 88 12 Steps (QC): 88 Picking up an Object (QC): 4 (CGA) Wheel 50 feet with 2 turns (QC: 6 Wheel 150 feet: 6 PT Plan Treatment/Plan Treatment Plan: Continue Plan of Care Treatment Plan: Bed Mobility, Education, Functional Activity Nona, Functional Strength, Group Therapy, Gait, Safety, Therapeutic Exercise, Transfers Treatment Duration: Nov 12, 2021 Frequency: At least 5 of 7 days/Wk (IRF) Estimated Hrs Per Day: 1.5 hours per day Patient and/or Family Agrees t: Yes Safety Risks/Education Patient Education: Gait Training, Transfer Techniques Teaching Recipient: Patient Teaching Methods: Demonstration, Discussion Response to Teaching: Verbalize Understanding, Return Demonstration Time/GCodes Time In: 1315 Time Out: 1345 Total Billed Treatment Time: 30 Total Billed Treatment Visit, MEEK Musa JOHN A PT Oct 23, 2021 14:51
[2021-10-23 20:00] VITALS: BP 156/72
[2021-10-24] MEDS: HYDROcodone/APAP 5 MG/325 MG (LORTAB) TAB PO PRN ×3 (03:24→21:17)
[2021-10-24 07:30] VITALS: BP 151/73
[2021-10-24] MEDS: CLOPIDOGREL 75 MG (PLAVIX) TABLET PO SCH (08:03)
[2021-10-24] MEDS: lisINopril 20 MG (PRINIVIL) TABLET PO SCH (08:03)
[2021-10-24] MEDS: PANTOPRAZOLE 20 MG TABLET (PROTONIX) PO SCH (08:03)
[2021-10-24] MEDS: SINEMET 25/100 (CARBIDOPA/LEVODOPA) TAB PO SCH ×3 (08:03→21:08)
[2021-10-24] MEDS: DOCUSATE SODIUM 100 MG (COLACE) CAP PO SCH ×2 (08:04→21:13)
[2021-10-24] MEDS: SENNA W/DOCUSATE (SENOKOT S) TABLET PO SCH ×2 (08:04→21:13)
[2021-10-24] MEDS: polyethylene glycoL POWDER 17 GM (MIRALAX) PACK PO SCH ×2 (08:05→21:13)
--- NOTE | 2021-10-24 08:57 | Physical Therapy Daily Note ---
PT Daily Note-Current Subjective Pt. agrees to Rx but wants all his meds 1st. " I take them every day with my brkfst" Pt. wants further explanation of what the routine is here. Then states " I like this place, why havent I been coming here all along"? Pain Location: No Pain Reported Mental Status Patient Orientation: Person, Place, Situation Attachments: Other-See Comments (CAM boot right) Transfers SCALE: Activities may be completed with or without assistive devices. 9-Xdvjunfczm-ygfcdgl completes the activity by him/herself with no assistance from a helper. 5-Set-up or Clean-up Assistance-helper sets up or cleans up; patient completes activity. [place] assists only prior to or following the activity. 4-Supervision or Touching Assistance-helper provides verbal cues and/or touching/steadying and/or contact guard assistance as patient completes activity. Assistance may be provided throughout the activity or intermittently. 3-Partial/Moderate Assistance-helper does LESS THAN HALF the effort. [place] lifts, holds or supports trunk or limbs, but provides less than half the effort. 2-Substantial/Maximal Assistance-helper does MORE THAN HALF the effort. [place] lifts or holds trunk or limbs and provides more than half the effort. 6-Iezqcmwiu-rpezvm does ALL the effort. Patient does none of the effort to complete the activity. Or, the assistance of 2 or more helpers is required for the patient to complete the activity. If activity was not attempted, code reason: 7-Patient Refused. 9-Not Applicable-not attempted and the patient did not perform the activity before the current illness, exacerbation or injury. 10-Not Attempted due to Environmental Limitations-(lack of equipment, weather restraints, etc.). 88-Not Attempted due to Medical Conditions or Safety Concerns. Roll Left & Right (QC): 6 Sit to Lying (QC): 6 Lying to Sitting/Side of Bed(Q: 6 Sit to Stand (QC): 5 Chair/Tni-cf-Clrsn Xfer(QC): 5 Car Transfer (QC): 6 occas cues to use UEs to rise safely/ effectively from chair Weight Bearing Right Lower Extremity: Right Non Weight Bearing Weight Bearing/Tolerated (status confrimed at WBAT with CAM boot on as of 10.23.2021 per Josefina Woods DPT , comminicated to this TEXTURE ARTIST on10.24.2021) othPatient is NWB on the right leg without the CAM boot and apparently is weight bearing on the right leg with the CAM boot but is unclear how much; Clarification from PT evaluation. After gait training, nurse brought Ortho notes from [facility] to this PT and states that "CAM boot is not appropriate at this time". Therefore, patient is still NWB in the right LE until follow up with orthopedic physician. Gait Training Does the Patient Walk?: Yes Walk 10 feet (QC): 5 Walk 50 ft with 2 Turns(QC): 5 Walk 150 ft (QC): 5 Gait Persons Needed: 1 Gait Assistive Device: FWW w/c to follow for gait, pt. had 2 instances of festination during gait but no LOB, manages FWW well and states he is using one at home inside the house Wheelchair Training Does the Pt Use a Wheelchair?: Yes Wheel 50 ft with 2 turns (QC): 6 Wheel 150 ft (QC): 6 Type of Wheelchair: Manual Exercises Supine Ex: Bridging (LLE only), Ankle pumps, Quad Set, Rolling, Glut sets, Heel Slides, Short Arc Quads, Scooting, Straight leg raise, Hip abd/add Supine Reps: 20 Seated Therapy Exercises: Sit to stand, Long arc quads Seated Reps: 12 NuStep Minutes: 10 NuStep Workload: 3 Treatments rolled to doff and steven soiled to clean brief. Assessment Current Status: Good Progress gives good effort , denies pain PT Short Term Goals Short Term Goals Time Frame: Oct 29, 2021 Roll Left & Right: 6 Sit to lyin Lying to sitting on side of be: 3 Sit to stand: 4 Chair/vkw-bo-tqxow transfer: 4 Walk 10 feet: 4 PT Custodial Goals [place] Goals PT Custodial Goals Time Frame: Nov 12, 2021 Roll Left & Right (QC): 6 Sit to Lying (QC): 6 Lying-Sitting on Side/Bed(QC): 6 Sit to Stand (QC): 4 (SBA) Chair/Wfc-zb-Kqokv Xfer(QC): 4 (SBA) Toilet Transfer (QC): 4 (SBA) Car Transfer (QC): 4 (SBA) Does the Patient Walk: Yes Walk 10 feet (QC): 4 (GA) Walk 50ft with 2 Turns (QC): 4 (CGA) Walk 150 ft (QC): 88 Walking 10ft on Uneven Surface: 4 (CGA) 1 Step (curb) (QC): 88 4 Steps (QC): 88 12 Steps (QC): 88 Picking up an Object (QC): 4 (CGA) Wheel 50 feet with 2 turns (QC: 6 Wheel 150 feet: 6 PT Plan Treatment/Plan Treatment Plan: Continue Plan of Care Treatment Plan: Bed Mobility, Education, Functional Activity Nona, Functional Strength, Group Therapy, Gait, Safety, Therapeutic Exercise, Transfers Treatment Duration: Nov 12, 2021 Frequency: At least 5 of 7 days/Wk (IRF) Estimated Hrs Per Day: 1.5 hours per day Patient and/or Family Agrees t: Yes Safety Risks/Education Patient Education: Gait Training, Transfer Techniques, Correct Positioning, W/C Management, Disease Process, Safety Issues Teaching Recipient: Patient Teaching Methods: Demonstration, Discussion Response to Teaching: Verbalize Understanding, Return Demonstration, Reinforcement Needed Time/GCodes Time In: 755 Time Out: 855 Total Billed Treatment Time: 60 Total Billed Treatment 1,GT20m,EX25m,FA15m GAYLE RASHID TEXTURE ARTIST Oct 24, 2021 08:57
--- NOTE | 2021-10-24 10:21 | Occupational Ther Daily Note ---
OT Current Status-Daily Note Subjective Pt agreeable to shower. Reports mild c/o dizziness upon sitting up, resolves with rest. Appearance Returned to supine, all needs within reach, physical therapy entering room. Mental Status/Objective Patient Orientation: Person, Place, Situation cam boot ADL-Treatment Therapy Code Descriptions/Definitions Functional [place] Measure: 0=Not Assessed/NA 4=Minimal Assistance 1=Total Assistance 5=Supervision or Setup 2=Maximal Assistance 6=Modified [place] 3=Moderate Assistance 7=Complete IndependenceSCALE: Activities may be completed with or without assistive devices. 6-Pijiqqxhtj-qhvdktr completes the activity by him/herself with no assistance from a helper. 5-Set-up or Clean-up Assistance-helper sets up or cleans up; patient completes activity. [place] assists only prior to or following the activity. 4-Supervision or Touching Assistance-helper provides verbal cues and/or touching/steadying and/or contact guard assistance as patient completes activity. Assistance may be provided throughout the activity or intermittently. 3-Partial/Moderate Assistance-helper does LESS THAN HALF the effort. [place] lifts, holds or supports trunk or limbs, but provides less than half the effort. 2-Substantial/Maximal Assistance-helper does MORE THAN HALF the effort. [place] lifts or holds trunk or limbs and provides more than half the effort. 3-Iaczhksbb-pklcpi does ALL the effort. Patient does none of the effort to complete the activity. Or, the assistance of 2 or more helpers is required for the patient to complete the activity. If activity was not attempted, code reason: 7-Patient Refused. 9-Not Applicable-not attempted and the patient did not perform the activity before the current illness, exacerbation or injury. 10-Not Attempted due to Environmental Limitations-(lack of equipment, weather restraints, etc.). 88-Not Attempted due to Medical Conditions or Safety Concerns. Shower/Bathe Self (QC): 3 (min) Upper Body Dressing (QC): 4 Lower Body Dressing (QC): 3 On/Off Footwear: 4 Shower performed; 100% completed in sitting. RLE wrapped by OT; c/d/i post activity. Education on performing lateral pelvic leans to wash buttocks, min a required for thoroughness. Pt washes several body parts multiple times, requires cues to move on. Clothing donned seated in w/c. Tactile and verbal cue required to pull shirt down around torso. Extra time to thread BLE's into brief/shorts, but no assist required. Pt fatigues easily with task and requires a lengthy rest break after threading each foot into clothing. Poor compliance of non weight bearing when standing for clothing management. Anticipate improved performance when wearing cam boot. Assist to pull up completely over hips due to being slightly damp. Pt requests to return to bed following adls secondary to fatigue. Sit<>stand: SBA-CGA, poor compliance of NWB on RLE (when cam boot is doffed) with stand pivot transfers. Gait not performed as boot not donned during session. 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 2=Patient will verbalize/demonstrate understanding of assistive devices/modifications for ADL. 3=Patient will improve strength/tolerance for activity to enable patient to perf orm ADL's. OT Education/Plan Problem List/Assessment Assessment: Decreased Activ Tolerance, Decreased Safety Aware, Impaired Cognition, Impaired Funct Balance, Impaired I ADL's, Impaired Self-Care Skills Discharge Recommendations Plan/Recommendations: Continue POC Equpiment Recommendations-D/C: Bath Chair Treatment Plan/Plan of Care Patient would benefit from OT for education, treatment and training to promote independence in ADL's, mobility, safety and/or upper extremity function for ADL's. Plan of Care: ADL Retraining, Functional Mobility, Group Exercise/Act as Ind, Orthotic Fitting/Training, UE Funct Exercise/Act, W/C Management Training Treatment Duration: Nov 12, 2021 Frequency: At least 5 of 7 days/Wk (IRF) Estimated Hrs Per Day: 1.5 hours per day Agreement: Yes Rehab Potential: Fair Time/GCodes Start Time: 09:00 Stop Time: 10:15 Total Time Billed (hr/min): 75 Billed Treatment Time 1 visit ADL x5 Rosalee Laguna OT Oct 24, 2021 10:21
--- NOTE | 2021-10-24 10:29 | PM&R Progress Note ---
Subjective HPI/CC On Admission Date Seen by Provider: Oct 24, 2021 Time Seen by Provider: 12:30 Subjective/Events-last exam 10/24/2021: Tori on his bottom PT and OT doing well Walked with his cam boot Bowels moving Document Dr. Lubin cardiology and he sees Dr. De La Torre Checked meds and labs 10/23/2021: Pt doing well Bowels are moving at the bedside Made some suicidal statements that weren't really suicidal Labs reviewed External monitor will require cardiology evaluation Weight-bearing as tolerated will be given because he will not do anything otherwise Review of Systems Musculoskeletal: leg pain Objective Exam Vital Signs Vital Signs Date Time Temp Pulse Resp B/P (MAP) Pulse Ox O2 Delivery O2 Flow Rate FiO2 10/24/21 08:38 Room Air 10/24/21 07:30 36.6 68 20 151/73 (99) 97 Capillary Refill : General Appearance: No Apparent Distress, WD/WN, Chronically ill, Obese HEENT: PERRL/EOMI, Normal ENT Inspection, Pharynx Normal Neck: Full Range of Motion, Normal Inspection, Non Tender, Supple, Carotid Bruit Respiratory: Chest Non Tender, Lungs Clear, Normal Breath Sounds, No Accessory Muscle Use, No Respiratory Distress Cardiovascular: Regular Rate, Rhythm, No Edema, No Gallop, No JVD, No Murmur, Normal Peripheral Pulses Gastrointestinal: Normal Bowel Sounds, No Organomegaly, No Pulsatile Mass, Non Tender, Soft Back: Normal Inspection, No CVA Tenderness, No Vertebral Tenderness Extremity: Normal Capillary Refill, Normal Inspection, Normal Range of Motion (Except right ankle), Non Tender, No Calf Tenderness, No Pedal Edema Neurologic/Psychiatric: Alert, Oriented x3, No Motor/Sensory Deficits, Normal Mood/Affect, silver miner blasting II-XII Norm as Tested, Abnormal Gait, Motor Weakness Skin: Normal Color, Warm/Dry Lymphatic: No Adenopathy Results/Procedures Lab Patient resulted labs reviewed. FIM Transfers Therapy Code Descriptions/Definitions Functional [place] Measure: 0=Not Assessed/NA 4=Minimal Assistance 1=Total Assistance 5=Supervision or Setup 2=Maximal Assistance 6=Modified [place] 3=Moderate Assistance 7=Complete IndependenceSCALE: Activities may be completed with or without assistive devices. 7-Ycmtuvviri-seukpui completes the activity by him/herself with no assistance from a helper. 5-Set-up or Clean-up Assistance-helper sets up or cleans up; patient completes activity. [place] assists only prior to or following the activity. 4-Supervision or Touching Assistance-helper provides verbal cues and/or touching/steadying and/or contact guard assistance as patient completes activity. Assistance may be provided throughout the activity or intermittently. 3-Partial/Moderate Assistance-helper does LESS THAN HALF the effort. [place] lifts, holds or supports trunk or limbs, but provides less than half the effort. 2-Substantial/Maximal Assistance-helper does MORE THAN HALF the effort. [place] lifts or holds trunk or limbs and provides more than half the effort. 5-[place]-rwogrx does ALL the effort. Patient does none of the effort to complete the activity. Or, the assistance of 2 or more helpers is required for the patient to complete the activity. If activity was not attempted, code reason: 7-Patient Refused. 9-Not Applicable-not attempted and the patient did not perform the activity before the current illness, exacerbation or injury. 10-Not Attempted due to Environmental Limitations-(lack of equipment, weather restraints, etc.). 88-Not Attempted due to Medical Conditions or Safety Concerns. Roll Left to Right (QC): 6 Sit to Lying (QC): 6 Sit to Stand (QC): 5 Chair/Jpj-mf-Ygsdt Xfer(QC): 5 Car Transfer (QC): 6 Gait Training Does the Patient Walk?: Yes Distance: 200 x 2 Walk 10 feet (QC): 5 Walk 50 ft with 2 Turns(QC): 5 Walk 150 ft (QC): 5 Walking 10ft/uneven surface-QC: 88 Gait Persons Needed: 1 Gait Assistive Device: FWW Wheelchair Training Does the Pt Use a Wheelchair?: Yes Distance: 150' Wheel 50 ft with 2 turns (QC): 6 Wheel 150 ft (QC): 6 Type of Wheelchair: Manual Stair Training 1 Step (curb) (QC): 88 4 Steps (QC): 88 12 Steps (QC): 88 Balance Picking up an Object (QC): 88 ADL-Treatment Eating (QC): 5 Oral Hygiene (QC): 5 Shower/Bathe Self (QC): 3 (min) Upper Body Dressing (QC): 4 Lower Body Dressing (QC): 3 On/Off Footwear (QC): 4 Toileting Hygiene (QC): 3 Toilet Transfer (QC): 3 Assessment/Plan Assessment and Plan Assess & Plan/Chief Complaint Assessment: 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 Hypertension Hyperlipidemia FRANK Prostate cancer history Urinary incontinence Plan: Inpatient rehab protocol Supportive care Pain control 10/23/2021: Supportive care Pain control Cardiology consult 10/24/2021: Supportive care Orthopedic consult on Wednesday (1) Ankle fracture, right (2) Parkinsons (3) Bradycardia (4) CVA (cerebral vascular accident) VANNESA PARDO DO Oct 24, 2021 10:28
--- NOTE | 2021-10-24 10:54 | Physical Therapy Daily Note ---
PT Daily Note-Current Subjective Pt. just finishing OT Rx. Just had shower and states it felt wonderful. Pt. states he did not sleep well last night and relates it to the bed "I just fought it and drempt all night"Pt. states he has not been up in the recliner but would like to as his recliner at home is where he really gets some good rest and spend s quite a bit of time, daytime and nighttime. Pt. denies any pain, Dormitory Keeper arrives toward end of treatment to interview pt. Pain Location: No Pain Reported Mental Status Patient Orientation: Person, Place, Time, Situation Attachments: Other-See Comments (CAM boot for gait) Transfers SCALE: Activities may be completed with or without assistive devices. 1-Qjsrxikmfd-yefnpji completes the activity by him/herself with no assistance from a helper. 5-Set-up or Clean-up Assistance-helper sets up or cleans up; patient completes activity. [place] assists only prior to or following the activity. 4-Supervision or Touching Assistance-helper provides verbal cues and/or touching/steadying and/or contact guard assistance as patient completes activity. Assistance may be provided throughout the activity or intermittently. 3-Partial/Moderate Assistance-helper does LESS THAN HALF the effort. [place] lifts, holds or supports trunk or limbs, but provides less than half the effort. 2-Substantial/Maximal Assistance-helper does MORE THAN HALF the effort. [place] lifts or holds trunk or limbs and provides more than half the effort. 5-Rdednevxw-kmvsmj does ALL the effort. Patient does none of the effort to complete the activity. Or, the assistance of 2 or more helpers is required for the patient to complete the activity. If activity was not attempted, code reason: 7-Patient Refused. 9-Not Applicable-not attempted and the patient did not perform the activity before the current illness, exacerbation or injury. 10-Not Attempted due to Environmental Limitations-(lack of equipment, weather restraints, etc.). 88-Not Attempted due to Medical Conditions or Safety Concerns. Roll Left & Right (QC): 6 Sit to Lying (QC): 6 Lying to Sitting/Side of Bed(Q: 6 Sit to Stand (QC): 5 Chair/Rke-ys-Yasgs Xfer(QC): 5 pt. pulls himself up in bed using [place] rails , rolls left and right well Weight Bearing Right Lower Extremity: Right Non Weight Bearing Weight Bearing/Tolerated (status confrimed at [facility] with CAM boot on as of 10.23.2021 per Josefina Woods DPT , comminicated to this DIP FILLER on10.24.2021) othPatient is NWB on the right leg without the CAM boot and apparently is weight bearing on the right leg with the CAM boot but is unclear how much; Clarification from PT evaluation. After gait training, nurse brought [facility] from [facility] to this PT and states that "CAM boot is not appropriate at this time". Therefore, patient is still NWB in the right LE until follow up with orthopedic physician. Gait Training Does the Patient Walk?: Yes Gait Assistive Device: FWW CAM boot and shoe were donned for pt. to walk short dist from bed to recliner, FWW CGA. Exercises Supine Ex: Ankle pumps, Quad Set, Rolling, Glut sets, Heel Slides, Scooting, Straight leg raise, Hip abd/add Supine Reps: 15 Treatments bed mobility training and review, use of bed controls training and review, how to order meals training and most of all how to use and position in recliner for comfort similar to home situation, ie use of back raising and lowering and foot etc. LE exercises seated and supine. pillows under knee for comfort, warm blanket , chair alarm insitu, all lechuga at side Assessment Current Status: Good Progress good progress in all phases of Rx PT Short Term Goals Short Term Goals Time Frame: Oct 29, 2021 Roll Left & Right: 6 Sit to lyin Lying to sitting on side of be: 3 Sit to stand: 4 Chair/dgl-lw-lfspw transfer: 4 Walk 10 feet: 4 PT [employer] Artistic Director Goals Residential Goals PT [employer] Artistic Director Goals Time Frame: Nov 12, 2021 Roll Left & Right (QC): 6 Sit to Lying (QC): 6 Lying-Sitting on Side/Bed(QC): 6 Sit to Stand (QC): 4 (SBA) Chair/Bub-wc-Jwjga Xfer(QC): 4 (SBA) Toilet Transfer (QC): 4 (SBA) Car Transfer (QC): 4 (SBA) Does the Patient Walk: Yes Walk 10 feet (QC): 4 (GA) Walk 50ft with 2 Turns (QC): 4 (CGA) Walk 150 ft (QC): 88 Walking 10ft on Uneven Surface: 4 (CGA) 1 Step (curb) (QC): 88 4 Steps (QC): 88 12 Steps (QC): 88 Picking up an Object (QC): 4 (CGA) Wheel 50 feet with 2 turns (QC: 6 Wheel 150 feet: 6 PT Plan Treatment/Plan Treatment Plan: Continue Plan of Care Treatment Plan: Bed Mobility, Education, Functional Activity Nona, Functional Strength, Group Therapy, Gait, Safety, Therapeutic Exercise, Transfers Treatment Duration: Nov 12, 2021 Frequency: At least 5 of 7 days/Wk (IRF) Estimated Hrs Per Day: 1.5 hours per day Patient and/or Family Agrees t: Yes Safety Risks/Education Patient Education: Gait Training, Transfer Techniques, Correct Positioning, Disease Process, Safety Issues Teaching Recipient: Patient Teaching Methods: Demonstration, Discussion Response to Teaching: Verbalize Understanding, Return Demonstration, Reinforcement Needed Time/GCodes Time In: 1015 Time Out: 1045 Total Billed Treatment Time: 30 Total Billed Treatment 1,Ex15m,FA15m GAYLE RASHID DIP FILLER Oct 24, 2021 10:54
--- NOTE | 2021-10-24 11:04 | Consultation-Cardiology ---
HPI-Cardiology Cardiology Consultation: Date of Consultation 10/24/2021 Date of Admission 10/22/2021 Attending Physician Elsi Briones DO Admitting Physician Ivis King Aprn Consulting Physician OZZIE CAPPS JR, MD HPI: Time Seen by a Provider: 11:00 Chief Complaint: Reason for consultation: History of stroke I had the pleasure of seeing Ozzie in the inpatient rehabilitation unit at [facility] in [place], [place] this morning. I spoke to the patient and his who is at the bedside. In December, the patient had dysarthria and numbness in his right hand. He presented to [facility] in [place], [place] at that time and apparently was found to have had a stroke. Unclear whether or not he was given thrombolytics. He was in the hospital for 2 nights and discharged on aspirin and atorvastatin. He did not have any recurrent neurologic symptoms following discharge. More recently, the patient was climbing into his tractor and somehow fell while he was getting in his seat and fractured his right ankle. He was not able to get up. He went to the hospital in [place] and was transferred to [place], [place] for operative repair. I do not have the discharge summary from [facility] in [place], [place] but I do have the patient discharge instructions. In his discharge instructions, it states that he may have had a transient ischemic attack while he was at the hospital in [place]. It appears as though they changed his aspirin over to clopidogrel and his rosuvastatin over to atorvastatin. He is now wearing an external aircraft painter. However, his recall is that he did not have any recurrent neurologic symptoms while he was in [place], [place]. He does have some ongoing mild dysarthria. However, this is in the setting of underlying Parkinson's disease. He denies chest discomfort, dyspnea, paroxysmal nocturnal dyspnea, TopCare, palpitations, lightheadedness, syncope, or lower extremity edema. Certain portions of this document may have been dictated utilizing voice recognition technology. Inherent to this technology, typographical and grammatical errors may exist. As much as I am diligent to identify and correct these mistakes, some errors may remain in the document. Review of Systems-Cardiology Review of Systems Other comments Review of 10 organ systems is as per the history of present illness, otherwise negative. All Other Systems Reviewed Negative Unless Noted: Yes EQA-Jxziiq-Yluslj Hx Patient Social History Marrital Status: Employed/Student: retired ([employer]) Smoking Status: Former Smoker Have you traveled recently?: No Alcohol Use?: No Pt feels they are or have been: No Immunizations Up To Date Date of Influenza Vaccine: Jul 15, 2021 Past Medical History PMH As described under Assessment. Family Medical History Family Medical History: The patient does not know of any family history of premature coronary artery disease in first-degree relatives. Allergies and Home Medications Allergies Coded Allergies: No Allergy Information Available (Unverified , 10/21/21) Patient Home Medication List Home Medication List Reviewed: Yes Acetaminophen (Tylenol Arthritis) 650 Mg Tablet.er, 650 MG PO BID PRN for PAIN- MILD (1-4), (Reported) Entered as Reported by: DAMARIS WILKINSON on 10/22/211004 Last Action: Held Atorvastatin Calcium (Atorvastatin Calcium) 40 Mg Tablet, 40 MG PO HS, (Reported) Entered as Reported by: DAMARIS WILKINSON on 10/22/211004 Last Action: Continued Carbidopa/Levodopa (Carbidopa-Levo ER 25-100 Tab) 1 Each Tablet.er, 1 EACH PO TID, (Reported) Entered as Reported by: DAMARIS WILKINSON on 10/22/211004 Last Action: Converted Clopidogrel Bisulfate (Plavix) 75 Mg Tablet, 75 MG PO DAILY, (Reported) Entered as Reported by: DAMARIS WILKINSON on 10/22/211004 Last Action: Continued Lisinopril (Lisinopril) 20 Mg Tablet, 20 MG PO DAILY, (Reported) Entered as Reported by: DAMARIS WILKINSON on 10/22/211004 Last Action: Continued Omeprazole (Omeprazole) 10 Mg Capsule.dr, 10 MG PO DAILY PRN for HEARTBURN, (Reported) Entered as Reported by: DAMARIS WILKINSON on 10/22/211004 Last Action: Converted Exam Vital Signs Vital Signs Date Time Temp Pulse Resp B/P (MAP) Pulse Ox O2 Delivery O2 Flow Rate FiO2 10/24/21 07:30 36.6 68 20 151/73 (99) 97 Room Air Physical Exam General: Alert. No acute distress. Well nourished and appears stated age. He is overweight. Eye: Extraocular movements are intact. Conjunctivae are clear. There are no xanthelasma. HENT: Normocephalic. Atraumatic. Carotid pulsations 2/2 without bruits. Neck: Jugular venous pressure does not appear elevated. No thyromegaly appreciated. Respiratory: Lungs are clear to auscultation. Respirations are non-labored. Breath sounds are equal. Symmetrical chest wall expansion. Cardiovascular: Normal rate. Regular rhythm. No murmur. No gallop. Point of maximal impulse is not appear displaced. Good pulses equal in all extremities. No edema. Gastrointestinal: Soft. Normal bowel sounds. Skin: Skin turgor is normal. There is no pallor. Musculoskeletal: No kyphosis or scoliosis appreciated. Right foot is bandaged up to the midcalf. Neurologic: Alert and oriented to person, place, time. Cranial nerves 3-12 appear grossly intact. Mild dysarthria. The patient has good motor tone strength in the upper and lower extremities bilaterally. Psychiatric: Cooperative. Appropriate mood & affect. ECG Impression ECG Comment Sinus rhythm with first-degree AV block. Diagnosis/Problems Diagnosis/Problems (1) History of cerebrovascular accident Assessment & Plan: He reportedly had a cerebrovascular accident in December, and had been taking aspirin and rosuvastatin since then. He may have had a transient ischemic attack during his more recent hospitalization in [place], [place]. His aspirin was changed over to clopidogrel and rosuvastatin changed over to atorvastatin. I would recommend we continue the clopidogrel but for convenience sake, I will change his atorvastatin back over to rosuvastatin but at a higher dose. He now has an external monitor presumably to screen for atrial fibrillation. This was ordered in [place], [place]. The patient will need to follow-up with his regular senior clinical data manager at [facility] in [place], [place] following discharge. I have requested the discharge summary as well as some pertinent reports from [facility] in [place], [place]. (2) Sinus bradycardia Assessment & Plan: He was on beta-millie at home. His heart rate this morning is good but he does have a first-degree AV block. Beta-millie has been discontinued. (3) Primary hypertension Assessment & Plan: He is on lisinopril. Blood pressures are intermittently elevated. If this persists, he may need adjustment of his antihypertensive medication. I would recommend just increasing the lisinopril if needed. (4) Mixed hyperlipidemia Assessment & Plan: As above, I will change his atorvastatin back over to rosuvastatin since he was previously taking this at home. I will increase the dose given his possible recent transient ischemic attack on top of a previous cerebrovascular accident. (5) Obesity Assessment & Plan: He needs to work on weight loss. OZZIE CAPPS JR, MD Oct 24, 2021 11:04
--- NOTE | 2021-10-24 11:48 | Occupational Ther Daily Note ---
OT Current Status-Daily Note Subjective Denies pain, agreeable to treatment Appearance Left sitting in recliner, all needs within reach, in room. Mental Status/Objective Patient Orientation: Person, Place, Situation ADL-Treatment Therapy Code Descriptions/Definitions Functional [place] Measure: 0=Not Assessed/NA 4=Minimal Assistance 1=Total Assistance 5=Supervision or Setup 2=Maximal Assistance 6=Modified [place] 3=Moderate Assistance 7=Complete IndependenceSCALE: Activities may be completed with or without assistive devices. 7-Eowffbquiz-yawjtrp completes the activity by him/herself with no assistance from a helper. 5-Set-up or Clean-up Assistance-helper sets up or cleans up; patient completes activity. [place] assists only prior to or following the activity. 4-Supervision or Touching Assistance-helper provides verbal cues and/or touching/steadying and/or contact guard assistance as patient completes activity. Assistance may be provided throughout the activity or intermittently. 3-Partial/Moderate Assistance-helper does LESS THAN HALF the effort. [place] lifts, holds or supports trunk or limbs, but provides less than half the effort. 2-Substantial/Maximal Assistance-helper does MORE THAN HALF the effort. [place] lifts or holds trunk or limbs and provides more than half the effort. 2-Uaetjdaci-jlmgrc does ALL the effort. Patient does none of the effort to complete the activity. Or, the assistance of 2 or more helpers is required for the patient to complete the activity. If activity was not attempted, code reason: 7-Patient Refused. 9-Not Applicable-not attempted and the patient did not perform the activity before the current illness, exacerbation or injury. 10-Not Attempted due to Environmental Limitations-(lack of equipment, weather restraints, etc.). 88-Not Attempted due to Medical Conditions or Safety Concerns. Other Treatment Pt completed UE exercises with 2# hand held weight. Unable to tolerate 3#'s this date due to being sore from previous date. 10x1 in all planes. Several reminder visual and tactile cues needed for correct technique. Discussion with pt and spouse on home set up, energy conservation, and DME. Education OT Patient Education: Correct positioning, Energy conservation, Exercise program, Progress toward Goal/Update tx plan, Purpose of tx/functional activities, Safety issues Teaching Recipient: Patient, Family Teaching Methods: Demonstration, Discussion Response to Teaching: Verbalize Understanding, Return Demonstration, Reinforcement Needed OT Short Term Goals Short Term Goals Time Frame: Oct 31, 2021 Eatin Oral hygiene: 5 Toileting hygiene: 3 Shower/bathe self: 3 Upper body dressin Lower body dressin Putting on/taking off footwear: 3 (including cam boot) OT [facility] Goals Sling Operator Goals Time Frame: Nov 12, 2021 Eating (QC): 6 Oral Hygiene (QC): 6 Toileting Hygiene (QC): 5 Shower/Bathe Self (QC): 5 Upper Body Dressing (QC): 6 Lower Body Dressing (QC): 5 On/Off Footwear (QC): 5 1=Demonstrate adherence to instructed precautions during ADL tasks. 2=Patient will verbalize/demonstrate understanding of assistive devices/modifications for ADL. 3=Patient will improve strength/tolerance for activity to enable patient to perform ADL's. OT Education/Plan Problem List/Assessment Assessment: Decreased Activ Tolerance, Decreased UE Strength, Impaired Funct Balance, Impaired Self-Care Skills, Restricted Funct UE ROM Discharge Recommendations Plan/Recommendations: Continue POC Equpiment Recommendations-D/C: Bath Chair Treatment Plan/Plan of Care Treatment,Training & Education: Yes Patient would benefit from OT for education, treatment and training to promote independence in ADL's, mobility, safety and/or upper extremity function for AD L's. Plan of Care: ADL Retraining, Functional Mobility, Group Exercise/Act as Ind, Orthotic Fitting/Training, UE Funct Exercise/Act, W/C Management Training Treatment Duration: Nov 12, 2021 Frequency: At least 5 of 7 days/Wk (IRF) Estimated Hrs Per Day: 1.5 hours per day Agreement: Yes Rehab Potential: Fair Time/GCodes Start Time: 11:27 Stop Time: 11:44 Total Time Billed (hr/min): 17 Billed Treatment Time 1 visit EX Rosalee Laguna OT Oct 24, 2021 11:48
[2021-10-24 19:55] VITALS: BP 136/61
--- NOTE | 2021-10-25 05:52 | PM&R Progress Note ---
Subjective HPI/CC On Admission Date Seen by Provider: Oct 25, 2021 Time Seen by Provider: 12:15 Subjective/Events-last exam 10/25/2021: Patient doing really well Dr. Lubin is appreciated Supportive care Checked meds and labs 10/24/2021: Allevyn on his bottom PT and OT doing well Walked with his cam boot Bowels moving Document Dr. Lubin cardiology and he sees Dr. De La Torre Checked meds and labs 10/23/2021: Pt doing well Bowels are moving at the bedside Made some suicidal statements that weren't really suicidal Labs reviewed External monitor will require cardiology evaluation Weight-bearing as tolerated will be given because he will not do anything otherwise Review of Systems Musculoskeletal: leg pain Objective Exam Vital Signs Vital Signs Date Time Temp Pulse Resp B/P (MAP) Pulse Ox O2 Delivery O2 Flow Rate FiO2 10/25/21 09:00 Room Air 10/25/21 08:39 37.0 69 20 170/77 (108) 97 Capillary Refill : General Appearance: No Apparent Distress, WD/WN, Chronically ill, Obese HEENT: PERRL/EOMI, Normal ENT Inspection, Pharynx Normal Neck: Full Range of Motion, Normal Inspection, Non Tender, Supple, Carotid Bruit Respiratory: Chest Non Tender, Lungs Clear, Normal Breath Sounds, No Accessory Muscle Use, No Respiratory Distress Cardiovascular: Regular Rate, Rhythm, No Edema, No Gallop, No JVD, No Murmur, Normal Peripheral Pulses Gastrointestinal: Normal Bowel Sounds, No Organomegaly, No Pulsatile Mass, Non Tender, Soft Back: Normal Inspection, No CVA Tenderness, No Vertebral Tenderness Extremity: Normal Capillary Refill, Normal Inspection, Normal Range of Motion (Except right ankle), Non Tender, No Calf Tenderness, No Pedal Edema Neurologic/Psychiatric: Alert, Oriented x3, No Motor/Sensory Deficits, Normal Mood/Affect, verifier II-XII Norm as Tested, Abnormal Gait, Motor Weakness Skin: Normal Color, Warm/Dry Lymphatic: No Adenopathy Results/Procedures Lab Laboratory Tests 10/25/21 11:40 Patient resulted labs reviewed. FIM Transfers Therapy Code Descriptions/Definitions Functional [place] Measure: 0=Not Assessed/NA 4=Minimal Assistance 1=Total Assistance 5=Supervision or Setup 2=Maximal Assistance 6=Modified [place] 3=Moderate Assistance 7=Complete IndependenceSCALE: Activities may be completed with or without assistive devices. 2-Wmjyvedpcc-vghuwrr completes the activity by him/herself with no assistance from a helper. 5-Set-up or Clean-up Assistance-helper sets up or cleans up; patient completes activity. [place] assists only prior to or following the activity. 4-Supervision or Touching Assistance-helper provides verbal cues and/or touching/steadying and/or contact guard assistance as patient completes activity. Assistance may be provided throughout the activity or intermittently. 3-Partial/Moderate Assistance-helper does LESS THAN HALF the effort. [place] lifts, holds or supports trunk or limbs, but provides less than half the effort. 2-Substantial/Maximal Assistance-helper does MORE THAN HALF the effort. [place] lifts or holds trunk or limbs and provides more than half the effort. 3-Muulgwclv-czrwaw does ALL the effort. Patient does none of the effort to complete the activity. Or, the assistance of 2 or more helpers is required for the patient to complete the activity. If activity was not attempted, code reason: 7-Patient Refused. 9-Not Applicable-not attempted and the patient did not perform the activity before the current illness, exacerbation or injury. 10-Not Attempted due to Environmental Limitations-(lack of equipment, weather restraints, etc.). 88-Not Attempted due to Medical Conditions or Safety Concerns. Roll Left to Right (QC): 6 Sit to Lying (QC): 6 Sit to Stand (QC): 5 Chair/Bxh-mo-Fgtas Xfer(QC): 5 Car Transfer (QC): 6 Gait Training Does the Patient Walk?: Yes Distance: 200 x 2 Walk 10 feet (QC): 5 Walk 50 ft with 2 Turns(QC): 5 Walk 150 ft (QC): 5 Walking 10ft/uneven surface-QC: 88 Gait Persons Needed: 1 Gait Assistive Device: FWW Wheelchair Training Does the Pt Use a Wheelchair?: Yes Distance: 150' Wheel 50 ft with 2 turns (QC): 6 Wheel 150 ft (QC): 6 Type of Wheelchair: Manual Stair Training 1 Step (curb) (QC): 88 4 Steps (QC): 88 12 Steps (QC): 88 Balance Picking up an Object (QC): 88 ADL-Treatment Eating (QC): 5 Oral Hygiene (QC): 5 Shower/Bathe Self (QC): 3 (min) Upper Body Dressing (QC): 4 Lower Body Dressing (QC): 3 On/Off Footwear (QC): 4 Toileting Hygiene (QC): 3 Toilet Transfer (QC): 3 Assessment/Plan Assessment and Plan Assess & Plan/Chief Complaint Assessment: 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 He may have had a transient ischemic attack during his more recent hospitalization in [place], [place]. His aspirin was changed over to clopidogrel and rosuvastatin changed over to atorvastatin. I would recommend we continue the clopidogrel but for convenience sake, I will change his atorvastatin back over to rosuvastatin but at a higher dose. He now has an external monitor presumably to screen for atri al fibrillation. This was ordered in [place], [place]. The patient will need to follow-up with his regular two way radio installer at [facility] in [place], [place] following discharge. I have requested the discharge summary as well as some pertinent reports from [facility] in [place], [place]. (2) Sinus bradycardia Assessment & Plan: He was on beta-millie at home. His heart rate this morning is good but he does have a first-degree AV block. Beta-imllie has been discontinued. (3) Primary hypertension Assessment & Plan: He is on lisinopril. Blood pressures are intermittently elevated. If this persists, he may need adjustment of his antihypertensive medication. I would recommend just increasing the lisinopril if needed. (4) Mixed hyperlipidemia Assessment & Plan: As above, I will change his atorvastatin back over to rosuvastatin since he was previously taking this at home. I will increase the dose given his possible recent transient ischemic attack on top of a previous cerebrovascular accident. (5) Obesity Assessment & Plan: He needs to work on weight loss. VANNESA PARDO DO Oct 25, 2021 05:52
[2021-10-25] MEDS: HYDROcodone/APAP 5 MG/325 MG (LORTAB) TAB PO PRN ×3 (06:51→23:57)
[2021-10-25] MEDS: lisINopril 20 MG (PRINIVIL) TABLET PO SCH (08:11)
[2021-10-25] MEDS: CLOPIDOGREL 75 MG (PLAVIX) TABLET PO SCH (08:11)
[2021-10-25] MEDS: PANTOPRAZOLE 20 MG TABLET (PROTONIX) PO SCH (08:11)
[2021-10-25] MEDS: SINEMET 25/100 (CARBIDOPA/LEVODOPA) TAB PO SCH ×3 (08:12→21:07)
[2021-10-25 08:39] VITALS: BP 170/77
[2021-10-25] MEDS: polyethylene glycoL POWDER 17 GM (MIRALAX) PACK PO SCH ×2 (09:17→21:06)
[2021-10-25] MEDS: DOCUSATE SODIUM 100 MG (COLACE) CAP PO SCH ×2 (09:17→21:07)
[2021-10-25] MEDS: SENNA W/DOCUSATE (SENOKOT S) TABLET PO SCH ×2 (09:17→21:07)
--- NOTE | 2021-10-25 11:04 | Cardiology Progress Note ---
Progress Note-Cardiology Events since last exam Date Seen by Provider: Oct 25, 2021 Time Seen by Provider: 11:00 Events since last exam I am following him due to history of stroke. I am still waiting for records from the outside hospital. He denies chest discomfort, dyspnea, palpitations, syncope, or ankle edema. He continues to work with physical and Occupational Therapy on our inpatient rehab unit. Certain portions of this document may have been dictated utilizing voice recognition technology. Inherent to this technology, typographical and grammatical errors may exist. As much as I am diligent to identify and correct these mistakes, some errors may remain in the document. Vitals Last set of Vitals Signs Vital Signs 10/25/21 10/25/21 08:39 09:00 Temp 37.0 Pulse 69 Resp 20 B/P (MAP) 170/77 (108) Pulse Ox 97 O2 Delivery Room Air Exam Vital Signs Vital Signs Date Time Temp Pulse Resp B/P (MAP) Pulse Ox O2 Delivery O2 Flow Rate FiO2 10/25/21 09:00 Room Air 10/25/21 08:39 37.0 69 20 170/77 (108) 97 Physical Exam General: Alert. No acute distress. He is obese. Eye: No xanthelasma. HENT: Normocephalic. Neck: Jugular venous pressure does not appear elevated. Respiratory: Lungs are clear to auscultation. Respirations are non-labored. Breath sounds are equal. Symmetrical chest wall expansion. Cardiovascular: Normal rate. Regular rhythm. No murmur. No gallop. No edema. Gastrointestinal: Soft. Normal bowel sounds. Skin: Warm. Dry. Right foot is bandaged and in a boot. Neurologic: Alert and oriented to person, place, time. Cranial nerves 3-11 grossly intact. Psychiatric: Cooperative. Appropriate mood & affect. Diagnosis/Problems Diagnosis/Problems (1) History of cerebrovascular accident Assessment & Plan: He reportedly had a cerebrovascular accident in December, and had been taking aspirin and rosuvastatin since then. He may have had a transient ischemic attack during his more recent hospitalization in [place], [place]. His aspirin was changed over to clopidogrel and rosuvastatin changed over to atorvastatin. I would recommend we continue the clopidogrel but for convenience sake, I have changed his atorvastatin back over to rosuvastatin but at a higher dose since he may have some of these tablets at home. He now has an external monitor presumably to screen for atrial fibrillation. This was ordered in [place], [place]. The patient will need to follow-up with his regular chief supply chain officer at [facility] in [place], [place] following discharge. I have requested the discharge summary as well as some pertinent reports from [facility] in [place], [place] and we are still waiting to receive these records. (2) Sinus bradycardia Assessment & Plan: He was on beta-millie at home. His heart rate this morning is good but he does have a first-degree AV block. Beta-millie was discontinued at the outside hospital. (3) Primary hypertension Assessment & Plan: He is on lisinopril. Blood pressures are intermittently elevated. I will increase his dose of lisinopril and give an extra dose today. I have ordered a follow-up metabolic panel for tomorrow. Avoid beta-millie due to previous bradycardia as noted above (4) Mixed hyperlipidemia Assessment & Plan: As above, I will change his atorvastatin back over to rosuvastatin since he was previously taking this at home. I will increase the dose given his possible recent transient ischemic attack on top of a previous cerebrovascular accident. (5) Obesity Assessment & Plan: He needs to work on weight loss. OZZIE CAPPS JR, MD Oct 25, 2021 11:04
[2021-10-25] MEDS ORDERED: lisINopril 20 MG (PRINIVIL) TABLET PO ONE (11:15)
--- NOTE | 2021-10-25 11:27 | Physical Therapy Daily Note ---
PT Daily Note-Current Subjective Pt. enjoys visiting about his farm and adventures. Agrees that he should get up and walk a little and be up in the chair Pain Location: No Pain Reported Mental Status Patient Orientation: Normal For Age Attachments: Other-See Comments (cam boot) Transfers SCALE: Activities may be completed with or without assistive devices. 4-Cyhptyxfiq-kywdpzn completes the activity by him/herself with no assistance from a helper. 5-Set-up or Clean-up Assistance-helper sets up or cleans up; patient completes activity. [place] assists only prior to or following the activity. 4-Supervision or Touching Assistance-helper provides verbal cues and/or touching/steadying and/or contact guard assistance as patient completes activity. Assistance may be provided throughout the activity or intermittently. 3-Partial/Moderate Assistance-helper does LESS THAN HALF the effort. [place] lifts, holds or supports trunk or limbs, but provides less than half the effort. 2-Substantial/Maximal Assistance-helper does MORE THAN HALF the effort. [place] lifts or holds trunk or limbs and provides more than half the effort. 0-Iwixfpasa-miypzn does ALL the effort. Patient does none of the effort to complete the activity. Or, the assistance of 2 or more helpers is required for the patient to complete the activity. If activity was not attempted, code reason: 7-Patient Refused. 9-Not Applicable-not attempted and the patient did not perform the activity before the current illness, exacerbation or injury. 10-Not Attempted due to Environmental Limitations-(lack of equipment, weather restraints, etc.). 88-Not Attempted due to Medical Conditions or Safety Concerns. sup to sit to stand all CGA to SBA Weight Bearing Right Lower Extremity: Right Non Weight Bearing Weight Bearing/Tolerated (status confrimed at [facility] with CAM boot on as of 10.23.2021 per Josefina Woods DPT , comminicated to this OPHTHALMIC TECHNOLOGIST on10.24.2021) othPatient is NWB on the right leg without the CAM boot and apparently is weight bearing on the right leg with the CAM boot but is unclear how much; Clarification from PT evaluation. After gait training, nurse brought Ortho notes from [facility] to this PT and states that "CAM boot is not appropriate at this time". Therefore, patient is still NWB in the right LE until follow up with orthopedic physician. Gait Training Gait Assistive Device: FWW 25ft x 2 in room CGA to min, no LOB Exercises Seated Therapy Exercises: Ankle pumps, Sit to stand, Long arc quads, Hip flexion, Hip abd/add Seated Reps: 12 Treatments up in recliner after Rx. call lechuga at hand Assessment Current Status: Good Progress pleasant , gives good effort , PT Short Term Goals Short Term Goals Time Frame: Oct 29, 2021 Roll Left & Right: 6 Sit to lyin Lying to sitting on side of be: 3 Sit to stand: 4 Chair/ptx-hk-wnkbs transfer: 4 Walk 10 feet: 4 PT Hand Ii Tube Bender Goals Chcf Goals PT Chcf Goals Time Frame: Nov 12, 2021 Roll Left & Right (QC): 6 Sit to Lying (QC): 6 Lying-Sitting on Side/Bed(QC): 6 Sit to Stand (QC): 4 (SBA) Chair/Nve-gp-Qdvja Xfer(QC): 4 (SBA) Toilet Transfer (QC): 4 (SBA) Car Transfer (QC): 4 (SBA) Does the Patient Walk: Yes Walk 10 feet (QC): 4 (GA) Walk 50ft with 2 Turns (QC): 4 (CGA) Walk 150 ft (QC): 88 Walking 10ft on Uneven Surface: 4 (CGA) 1 Step (curb) (QC): 88 4 Steps (QC): 88 12 Steps (QC): 88 Picking up an Object (QC): 4 (CGA) Wheel 50 feet with 2 turns (QC: 6 Wheel 150 feet: 6 PT Plan Treatment/Plan Treatment Plan: Continue Plan of Care Treatment Plan: Bed Mobility, Education, Functional Activity Nona, Functional Strength, Group Therapy, Gait, Safety, Therapeutic Exercise, Transfers Treatment Duration: Nov 12, 2021 Frequency: At least 5 of 7 days/Wk (IRF) Estimated Hrs Per Day: 1.5 hours per day Patient and/or Family Agrees t: Yes Safety Risks/Education Patient Education: Gait Training, Transfer Techniques, Correct Positioning, Disease Process, Safety Issues Teaching Recipient: Patient Teaching Methods: Demonstration, Discussion Response to Teaching: Verbalize Understanding, Return Demonstration, Reinforcement Needed Time/GCodes Time In: 1050 Time Out: 1105 Total Billed Treatment Time: 15 Total Billed Treatment 1,FA15m GAYLE RASHID OPHTHALMIC TECHNOLOGIST Oct 25, 2021 11:27
[2021-10-25 12:00] LABS: CALCIUM 9.5 MG/DL (8.5-10.1); CREATININE SERUM 0.81 MG/DL (0.60-1.30); POTASSIUM 4.1 MMOL/L (3.6-5.0)
[2021-10-25 20:01] VITALS: BP 177/79
--- NOTE | 2021-10-26 07:26 | PM&R Progress Note ---
Subjective HPI/CC On Admission Date Seen by Provider: Oct 26, 2021 Time Seen by Provider: 12:30 Subjective/Events-last exam 10/26/21: Patient doing well Requests bedpan Cam boot in place 10/25/2021: Patient doing really well Dr. Lubin is appreciated Supportive care Checked meds and labs 10/24/2021: Allevyn on his bottom PT and OT doing well Walked with his cam boot Bowels moving Document Dr. Lubin cardiology and he sees Dr. De La Torre Checked meds and labs 10/23/2021: Pt doing well Bowels are moving at the bedside Made some suicidal statements that weren't really suicidal Labs reviewed External monitor will require cardiology evaluation Weight-bearing as tolerated will be given because he will not do anything otherwise Objective Exam Vital Signs Vital Signs Date Time Temp Pulse Resp B/P (MAP) Pulse Ox O2 Delivery O2 Flow Rate FiO2 10/26/21 20:00 36.9 71 18 107/58 (74) 97 Room Air Capillary Refill : General Appearance: No Apparent Distress, WD/WN, Chronically ill, Obese HEENT: PERRL/EOMI, Normal ENT Inspection, Pharynx Normal Neck: Full Range of Motion, Normal Inspection, Non Tender, Supple, Carotid Bruit Respiratory: Chest Non Tender, Lungs Clear, Normal Breath Sounds, No Accessory Muscle Use, No Respiratory Distress Cardiovascular: Regular Rate, Rhythm, No Edema, No Gallop, No JVD, No Murmur, Normal Peripheral Pulses Gastrointestinal: Normal Bowel Sounds, No Organomegaly, No Pulsatile Mass, Non Tender, Soft Back: Normal Inspection, No CVA Tenderness, No Vertebral Tenderness Extremity: Normal Capillary Refill, Normal Inspection, Normal Range of Motion ( Except right ankle), Non Tender, No Calf Tenderness, No Pedal Edema Neurologic/Psychiatric: Alert, Oriented x3, No Motor/Sensory Deficits, Normal Mood/Affect, sole rounder II-XII Norm as Tested, Abnormal Gait, Motor Weakness Skin: Normal Color, Warm/Dry Lymphatic: No Adenopathy Results/Procedures Lab Patient resulted labs reviewed. FIM Transfers Therapy Code Descriptions/Definitions Functional [place] Measure: 0=Not Assessed/NA 4=Minimal Assistance 1=Total Assistance 5=Supervision or Setup 2=Maximal Assistance 6=Modified [place] 3=Moderate Assistance 7=Complete IndependenceSCALE: Activities may be completed with or without assistive devices. 8-Girnbrqqnv-azzdoor completes the activity by him/herself with no assistance from a helper. 5-Set-up or Clean-up Assistance-helper sets up or cleans up; patient completes activity. [place] assists only prior to or following the activity. 4-Supervision or Touching Assistance-helper provides verbal cues and/or touching/steadying and/or contact guard assistance as patient completes activity. Assistance may be provided throughout the activity or intermittently. 3-Partial/Moderate Assistance-helper does LESS THAN HALF the effort. [place] lifts, holds or supports trunk or limbs, but provides less than half the effort. 2-Substantial/Maximal Assistance-helper does MORE THAN HALF the effort. [place] lifts or holds trunk or limbs and provides more than half the effort. 9-Quejnhslj-marrvu does ALL the effort. Patient does none of the effort to complete the activity. Or, the assistance of 2 or more helpers is required for the patient to complete the activity. If activity was not attempted, code reason: 7-Patient Refused. 9-Not Applicable-not attempted and the patient did not perform the activity before the current illness, exacerbation or injury. 10-Not Attempted due to Environmental Limitations-(lack of equipment, weather restraints, etc.). 88-Not Attempted due to Medical Conditions or Safety Concerns. Roll Left to Right (QC): 6 Sit to Lying (QC): 6 Sit to Stand (QC): 5 Chair/Ppj-yu-Tqjrp Xfer(QC): 5 Car Transfer (QC): 6 Gait Training Does the Patient Walk?: Yes Distance: 200 x 2 Walk 10 feet (QC): 5 Walk 50 ft with 2 Turns(QC): 5 Walk 150 ft (QC): 5 Walking 10ft/uneven surface-QC: 88 Gait Persons Needed: 1 Gait Assistive Device: FWW Wheelchair Training Does the Pt Use a Wheelchair?: Yes Distance: 150' Wheel 50 ft with 2 turns (QC): 6 Wheel 150 ft (QC): 6 Type of Wheelchair: Manual Stair Training 1 Step (curb) (QC): 88 4 Steps (QC): 88 12 Steps (QC): 88 Balance Picking up an Object (QC): 88 ADL-Treatment Eating (QC): 5 Oral Hygiene (QC): 5 Shower/Bathe Self (QC): 3 (min) Upper Body Dressing (QC): 4 Lower Body Dressing (QC): 3 On/Off Footwear (QC): 4 Toileting Hygiene (QC): 3 Toilet Transfer (QC): 3 Assessment/Plan Assessment and Plan Assess & Plan/Chief Complaint Assessment: 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 He may have had a transient ischemic attack during his more recent hospitalization in [place], [place]. His aspirin was changed over to clopidogrel and rosuvastatin changed over to atorvastatin. I would recommend we continue the clopidogrel but for convenience sake, I have changed his atorvastatin back over to rosuvastatin but at a higher dose since he may have some of these tablets at home. He now has an external monitor presumably to screen for atrial fibrillation. This was ordered in [place], [place]. The patient will need to follow-up with his regular cream buyer at [facility] in [place], [place] following discharge. I have requested the discharge summary as well as some pertinent reports from [facility] in [place], [place] and we are still waiting to receive these records. (2) Sinus bradycardia Assessment & Plan: He was on beta-millie at home. His heart rate this morning is good but he does have a first-degree AV block. Beta-millie was discontinued at the outside hospital. (3) Primary hypertension Assessment & Plan: He is on lisinopril. Blood pressures are intermittently elevated. I will increase his dose of lisinopril and give an extra dose today. I have ordered a follow-up metabolic panel for tomorrow. Avoid beta-millie due to previous bradycardia as noted above (4) Mixed hyperlipidemia Assessment & Plan: As above, I will change his atorvastatin back over to rosuvastatin since he was previously taking this at home. I will increase the dose given his possible recent transient ischemic attack on top of a previous cerebrovascular accident. (5) Obesity Assessment & Plan: He needs to work on weight loss. VANNESA PARDO DO Oct 26, 2021 07:26
[2021-10-26 07:30] VITALS: BP 156/72
[2021-10-26] MEDS: DOCUSATE SODIUM 100 MG (COLACE) CAP PO SCH ×2 (08:17→21:08)
[2021-10-26] MEDS: lisINopril 40 MG (PRINIVIL) TABLET PO SCH (08:17)
[2021-10-26] MEDS: SENNA W/DOCUSATE (SENOKOT S) TABLET PO SCH ×2 (08:17→21:10)
[2021-10-26] MEDS: PANTOPRAZOLE 20 MG TABLET (PROTONIX) PO SCH (08:17)
[2021-10-26] MEDS: SINEMET 25/100 (CARBIDOPA/LEVODOPA) TAB PO SCH ×3 (08:17→21:09)
[2021-10-26] MEDS: CLOPIDOGREL 75 MG (PLAVIX) TABLET PO SCH (08:17)
[2021-10-26] MEDS: polyethylene glycoL POWDER 17 GM (MIRALAX) PACK PO SCH ×2 (08:19→21:10)
[2021-10-26] MEDS: HYDROcodone/APAP 5 MG/325 MG (LORTAB) TAB PO PRN ×3 (08:30→21:09)
[2021-10-26 20:00] VITALS: BP_SYST 107; BP_SYST 130; BP_DIAS 58; BP_DIAS 69
[2021-10-27] MEDS: HYDROcodone/APAP 5 MG/325 MG (LORTAB) TAB PO PRN ×2 (04:12→09:05)
[2021-10-27 08:00] VITALS: BP 138/65
--- NOTE | 2021-10-27 08:59 | Physical Therapy Daily Note ---
PT Daily Note-Current Subjective Pt. in bed, at side. Pt. agrees to Rx, states he would like to walk to [facility] room 1st to attempt BM. Pt. states several times that he is ready to talk about going home. agrees to training for home so she can manage pt. safely. Pt. has no c/o pain only that he cannot sleep well here and that is one reason he is anxious to DC Pain Location: No Pain Reported Appearance heavily soiled brief Mental Status Patient Orientation: Person, Place, Time, Situation Attachments: Other-See Comments (cam boot right) Transfers SCALE: Activities may be completed with or without assistive devices. 8-Qnwhttbtut-kfzakrq completes the activity by him/herself with no assistance from a helper. 5-Set-up or Clean-up Assistance-helper sets up or cleans up; patient completes activity. [place] assists only prior to or following the activity. 4-Supervision or Touching Assistance-helper provides verbal cues and/or touching/steadying and/or contact guard assistance as patient completes activity. Assistance may be provided throughout the activity or intermittently. 3-Partial/Moderate Assistance-helper does LESS THAN HALF the effort. [place] lifts, holds or supports trunk or limbs, but provides less than half the effort. 2-Substantial/Maximal Assistance-helper does MORE THAN HALF the effort. [place] lifts or holds trunk or limbs and provides more than half the effort. 5-Jizojhkpj-bpobyi does ALL the effort. Patient does none of the effort to complete the activity. Or, the assistance of 2 or more helpers is required for the patient to complete the activity. If activity was not attempted, code reason: 7-Patient Refused. 9-Not Applicable-not attempted and the patient did not perform the activity before the current illness, exacerbation or injury. 10-Not Attempted due to Environmental Limitations-(lack of equipment, weather restraints, etc.). 88-Not Attempted due to Medical Conditions or Safety Concerns. Roll Left & Right (QC): 6 Sit to Lying (QC): 6 Lying to Sitting/Side of Bed(Q: 6 Sit to Stand (QC): 5 Chair/Kqc-rc-Amfhj Xfer(QC): 5 Toilet Transfer (QC): 5 pt. needs safety reminders for safe use of hands and approaching chair safely etc. Weight Bearing Right Lower Extremity: Right Non Weight Bearing Weight Bearing/Tolerated (status confrimed at [facility] with CAM boot on as of 10.23.2021 per Josefina Woods DPT , comminicated to this BAND SAW MARKER on10.24.2021) othPatient is NWB on the right leg without the CAM boot and apparently is weight bearing on the right leg with the CAM boot but is unclear how much; Clarification from PT evaluation. After gait training, [facility] and states that "CAM boot is not appropriate at this time". Therefore, patient is still NWB in the right LE until follow up with orthopedic physician. Gait Training Does the Patient Walk?: Yes Walk 10 feet (QC): 4 Walk 50 ft with 2 Turns(QC): 4 Walk 150 ft (QC): 4 Gait Persons Needed: 1 Gait Assistive Device: FWW pt. instructed in safe use of AD as he kicks right leg of walker and needs to have closer safer position in FWW. No shaan LOB, heavy wt bearing on FWW, instructed during turns for safety but no incident Exercises Supine Ex: Rolling, Heel Slides, Straight leg raise, Hip abd/add Supine Reps: 12 Seated Therapy Exercises: Sit to stand, Long arc quads Seated Reps: 12 NuStep Minutes: 9 NuStep Workload: 2 Treatments pt. was challenged to steven cam boot , needed max assist, affixing only the top velcro strap indep, did don left shoe indep, needed max assist to doff soiled brief and mod to steven clean brief and clothes , pt did indep celan himself after BM on toilet, gait, therex, TRFs Assessment Current Status: Good Progress good progress in all phases, to be trained for home safety etc PT Short Term Goals Short Term Goals Time Frame: Oct 29, 2021 Roll Left & Right: 6 Sit to lyin Lying to sitting on side of be: 3 Sit to stand: 4 Chair/yek-ta-hzgnp transfer: 4 Walk 10 feet: 4 PT Director Of Trauma Goals Mcfp Goals PT Mcfp Goals Time Frame: Nov 12, 2021 Roll Left & Right (QC): 6 Sit to Lying (QC): 6 Lying-Sitting on Side/Bed(QC): 6 Sit to Stand (QC): 4 (SBA) Chair/Ajm-js-Lwmtv Xfer(QC): 4 (SBA) Toilet Transfer (QC): 4 (SBA) Car Transfer (QC): 4 (SBA) Does the Patient Walk: Yes Walk 10 feet (QC): 4 (GA) Walk 50ft with 2 Turns (QC): 4 (CGA) Walk 150 ft (QC): 88 Walking 10ft on Uneven Surface: 4 (CGA) 1 Step (curb) (QC): 88 4 Steps (QC): 88 12 Steps (QC): 88 Picking up an Object (QC): 4 (CGA) Wheel 50 feet with 2 turns (QC: 6 Wheel 150 feet: 6 PT Plan Treatment/Plan Treatment Plan: Continue Plan of Care Treatment Plan: Bed Mobility, Education, Functional Activity Nona, Functional Strength, Group Therapy, Gait, Safety, Therapeutic Exercise, Transfers Treatment Duration: Nov 12, 2021 Frequency: At least 5 of 7 days/Wk (IRF) Estimated Hrs Per Day: 1.5 hours per day Patient and/or Family Agrees t: Yes Safety Risks/Education Patient Education: Gait Training, Transfer Techniques, Reviewed Precautions, Correct Positioning, Reviewed Don/Doff Brace, Safety Issues Teaching Recipient: Patient Teaching Methods: Demonstration, Discussion Response to Teaching: Verbalize Understanding, Return Demonstration, Re inforcement Needed Time/GCodes Time In: 755 Time Out: 855 Total Billed Treatment Time: 60 Total Billed Treatment 1, FA35m,GT15m,EX10m GAYLE RASHID BAND SAW MARKER Oct 27, 2021 08:58
[2021-10-27] MEDS: polyethylene glycoL POWDER 17 GM (MIRALAX) PACK PO SCH ×2 (09:00→20:32)
[2021-10-27] MEDS: CLOPIDOGREL 75 MG (PLAVIX) TABLET PO SCH (09:05)
[2021-10-27] MEDS: PANTOPRAZOLE 20 MG TABLET (PROTONIX) PO SCH (09:05)
[2021-10-27] MEDS: SINEMET 25/100 (CARBIDOPA/LEVODOPA) TAB PO SCH ×3 (09:05→20:32)
[2021-10-27] MEDS: DOCUSATE SODIUM 100 MG (COLACE) CAP PO SCH ×2 (09:05→20:32)
[2021-10-27] MEDS: SENNA W/DOCUSATE (SENOKOT S) TABLET PO SCH ×2 (09:05→20:32)
[2021-10-27] MEDS: lisINopril 40 MG (PRINIVIL) TABLET PO SCH (09:05)
--- NOTE | 2021-10-27 10:00 | PM&R Progress Note ---
Subjective HPI/CC On Admission Date Seen by Provider: Oct 27, 2021 Time Seen by Provider: 10:00 Subjective/Events-last exam 10/27/21: Pt doing really well. Orthopedic Surgery will be consulted. Social Work consult too IS used Checked meds and labs Declines any additional lab work to be drawn. 10/26/21: Patient doing well Requests bedpan Cam boot in place 10/25/2021: Patient doing really well Dr. Lubin is appreciated Supportive care Checked meds and labs 10/24/2021: Allevyn on his bottom PT and OT doing well Walked with his cam boot Bowels moving Document Dr. Lubin cardiology and he sees Dr. De La Torre Checked meds and labs 10/23/2021: Pt doing well Bowels are moving at the bedside Made some suicidal statements that weren't really suicidal Labs reviewed External monitor will require cardiology evaluation Weight-bearing as tolerated will be given because he will not do anything otherwise Review of Systems General: Fatigue, Malaise Musculoskeletal: leg pain Objective Exam Vital Signs Vital Signs Date Time Temp Pulse Resp B/P (MAP) Pulse Ox O2 Delivery O2 Flow Rate FiO2 10/27/21 21:08 98 Room Air 10/27/21 20:28 36.7 75 16 116/56 (76) Capillary Refill : General Appearance: No Apparent Distress, WD/WN, Chronically ill, Obese HEENT: PERRL/EOMI, Normal ENT Inspection, Pharynx Normal Neck: Full Range of Motion, Normal Inspection, Non Tender, Supple, Carotid Bruit Respiratory: Chest Non Tender, Lungs Clear, Normal Breath Sounds, No Accessory Muscle Use, No Respiratory Distress Cardiovascular: Regular Rate, Rhythm, No Edema, No Gallop, No JVD, No Murmur, Normal Peripheral Pulses Gastrointestinal: Normal Bowel Sounds, No Organomegaly, No Pulsatile Mass, Non Tender, Soft Back: Normal Inspection, No CVA Tenderness, No Vertebral Tenderness Extremity: Normal Capillary Refill, Normal Inspection, Normal Range of Motion (Except right ankle), Non Tender, No Calf Tenderness, No Pedal Edema Neurologic/Psychiatric: Alert, Oriented x3, No Motor/Sensory Deficits, Normal Mood/Affect, solar sales II-XII Norm as Tested, Abnormal Gait, Motor Weakness Skin: Normal Color, Warm/Dry Lymphatic: No Adenopathy Results/Procedures Lab Patient resulted labs reviewed. FIM Transfers Therapy Code Descriptions/Definitions Functional [place] Measure: 0=Not Assessed/NA 4=Minimal Assistance 1=Total Assistance 5=Supervision or Setup 2=Maximal Assistance 6=Modified [place] 3=Moderate Assistance 7=Complete IndependenceSCALE: Activities may be completed with or without assistive devices. 7-Odxwtwixam-ionluco completes the activity by him/herself with no assistance from a helper. 5-Set-up or Clean-up Assistance-helper sets up or cleans up; patient completes activity. [place] assists only prior to or following the activity. 4-Supervision or Touching Assistance-helper provides verbal cues and/or touching/steadying and/or contact guard assistance as patient completes activity. Assistance may be provided throughout the activity or intermittently. 3-Partial/Moderate Assistance-helper does LESS THAN HALF the effort. [place] lifts, holds or supports trunk or limbs, but provides less than half the effort. 2-Substantial/Maximal Assistance-helper does MORE THAN HALF the effort. [place] lifts or holds trunk or limbs and provides more than half the effort. 8-Cyhrjvjbj-jeplww does ALL the effort. Patient does none of the effort to complete the activity. Or, the assistance of 2 or more helpers is required for the patient to complete the activity. If activity was not attempted, code reason: 7-Patient Refused. 9-Not Applicable-not attempted and the patient did not perform the activity before the current illness, exacerbation or injury. 10-Not Attempted due to Environmental Limitations-(lack of equipment, weather restraints, etc.). 88-Not Attempted due to Medical Conditions or Safety Concerns. Roll Left to Right (QC): 6 Sit to Lying (QC): 6 Sit to Stand (QC): 5 Chair/Vru-ti-Uznvf Xfer(QC): 5 Car Transfer (QC): 6 Gait Training Does the Patient Walk?: Yes Distance: 200 x 2 Walk 10 feet (QC): 4 Walk 50 ft with 2 Turns(QC): 4 Walk 150 ft (QC): 4 Walking 10ft/uneven surface-QC: 88 Gait Persons Needed: 1 Gait Assistive Device: FWW Wheelchair Training Does the Pt Use a Wheelchair?: Yes Distance: 150' Wheel 50 ft with 2 turns (QC): 6 Wheel 150 ft (QC): 6 Type of Wheelchair: Manual Stair Training 1 Step (curb) (QC): 88 4 Steps (QC): 88 12 Steps (QC): 88 Balance Picking up an Object (QC): 88 ADL-Treatment Eating (QC): 5 Oral Hygiene (QC): 5 Shower/Bathe Self (QC): 3 (min) Upper Body Dressing (QC): 4 Lower Body Dressing (QC): 3 On/Off Footwear (QC): 4 Toileting Hygiene (QC): 3 Toilet Transfer (QC): 3 Assessment/Plan Assessment and Plan Assess & Plan/Chief Complaint Assessment: 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 Hypertension Hyperlipidemia FRANK Prostate cancer history Urinary incontinence Plan: Inpatient rehab protocol Supportive care Pain control 10/23/2021: Supportive care Pain control Cardiology consult 10/24/2021: Supportive care Orthopedic consult on Wednesday10/25/2021: Orthopedic surgery consult Checked meds and labs Appreciate cardiology 10/26/21: Monitor closely 10/27/21: Supportive care Appreciated Dr Godinez (1) History of cerebrovascular accident Assessment & Plan: He reportedly had a cerebrovascular accident in December, and had been taking aspirin and rosuvastatin since then. He may have had a transient ischemic attack during his more recent hospitalization in [place], [place]. His aspirin was changed over to clopidogrel and rosuvastatin changed over to atorvastatin. I would recommend we continue the clopidogrel but for convenience sake, I have changed his atorvastatin back over to rosuvastatin but at a higher dose since he may have some of these tablets at home. He now has an external monitor presumably to screen for atrial fibrillation. This was ordered in [place], [place]. The patient will need to follow-up with his regular spa therapist at [facility] in [place], [place] following discharge. I have requested the discharge summary as well as some pertinent reports from [facility] in [place], [place] and we are still waiting to receive these records. (2) Sinus bradycardia Assessment & Plan: He was on beta-millie at home. His heart rate this morning is good but he does have a first-degree AV block. Beta-millie was discontinued at the outside hospital. (3) Primary hypertension Assessment & Plan: He is on lisinopril. Blood pressures are intermittently elevated. I will increase his dose of lisinopril and give an extra dose today. I have ordered a follow-up metabolic panel for tomorrow. Avoid beta-millie due to previous bradycardia as noted above (4) Mixed hyperlipidemia Assessment & Plan: As above, I will change his atorvastatin back over to rosuvastatin since he was previously taking this at home. I will increase the dose given his possible recent transient ischemic attack on top of a previous cerebrovascular accident. (5) Obesity Assessment & Plan: He needs to work on weight loss. VANNESA PARDO DO Oct 27, 2021 10:00
--- NOTE | 2021-10-27 11:00 | Occupational Ther Daily Note ---
OT Current Status-Daily Note Subjective Denies pain, agreeable to treatment. Appearance Left sitting in recliner, BLE's elevated. All needs within reach, in room. Mental Status/Objective Patient Orientation: Person, Place, Situation ADL-Treatment Therapy Code Descriptions/Definitions Functional [place] Measure: 0=Not Assessed/NA 4=Minimal Assistance 1=Total Assistance 5=Supervision or Setup 2=Maximal Assistance 6=Modified [place] 3=Moderate Assistance 7=Complete IndependenceSCALE: Activities may be completed with or without assistive devices. 1-Jxpmmafttr-hyzrmlp completes the activity by him/herself with no assistance from a helper. 5-Set-up or Clean-up Assistance-helper sets up or cleans up; patient completes activity. [place] assists only prior to or following the activity. 4-Supervision or Touching Assistance-helper provides verbal cues and/or touching/steadying and/or contact guard assistance as patient completes activity. Assistance may be provided throughout the activity or intermittently. 3-Partial/Moderate Assistance-helper does LESS THAN HALF the effort. [place] lifts, holds or supports trunk or limbs, but provides less than half the effort. 2-Substantial/Maximal Assistance-helper does MORE THAN HALF the effort. [place] lifts or holds trunk or limbs and provides more than half the effort. 6-[place]-tsnbco does ALL the effort. Patient does none of the effort to complete the activity. Or, the assistance of 2 or more helpers is required for the patient to complete the activity. If activity was not attempted, code reason: 7-Patient Refused. 9-Not Applicable-not attempted and the patient did not perform the activity before the current illness, exacerbation or injury. 10-Not Attempted due to Environmental Limitations-(lack of equipment, weather restraints, etc.). 88-Not Attempted due to Medical Conditions or Safety Concerns. Oral Hygiene (QC): 7 Lower Body Dressing (QC): 4 On/Off Footwear: 4 Toileting Hygiene (QC): 4 Toilet Transfer (QC): 4 Pt sitting on toilet at OT arrival. Unsuccessful with having bowel movement. Able to demonstrate ability to reach posteriorly to clean backside. Pt stood from toilet with use of grab bars and sba. When removing BUE's from walker, pt places head on wall for extra stability. Education on safety and alternating one hand on walker at a time while other manages clothing over hips. Toilet transfer x3 with goal to promote increased endurance and strength for adls. Pt fatigues after 2 transfers and requires a lengthy rest break. He ambulated back to room with walker and SBA. Practice donning/doffing CAM boot x4. Post instruction, he was able to complete with extra time and min verbal cues. Pt does fatigue with task due to consistent bending over and requires a break after each don/doff. OT discusses compensatory methods including sitting at EOB and lifting leg onto bed if able. Pt not willing to practice on side of bed this date due to fatigue and wanting to stay in chair. Education OT Patient Education: Correct positioning, Energy conservation, Modified ADL techniques, Progress toward Goal/Update tx plan, Purpose of tx/functional activities, Rehab process, Safety issues Teaching Recipient: Patient Teaching Methods: Demonstration, Discussion Response to Teaching: Verbalize Understanding, Return Demonstration, Reinforcement Needed OT Short Term Goals Short Term Goals Time Frame: Oct 31, 2021 Eatin Oral hygiene: 5 Toileting hygiene: 3 Shower/bathe self: 3 Upper body dressin Lower body dressin Putting on/taking off footwear: 3 (including cam boot) OT Detention Goals Rail Bender Goals Time Frame: Nov 12, 2021 Eating (QC): 6 Oral Hygiene (QC): 6 Toileting Hygiene (QC): 5 Shower/Bathe Self (QC): 5 Upper Body Dressing (QC): 6 Lower Body Dressing (QC): 5 On/Off Footwear (QC): 5 1=Demonstrate adherence to instructed precautions during ADL tasks. 2=Patient will verbalize/demonstrate understanding of assistive devices/modifications for ADL. 3=Patient will improve strength/tolerance for activity to enable patient to perform ADL's. OT Education/Plan Problem List/Assessment Assessment: Decreased Activ Tolerance, Decreased Safety Aware, Impaired Funct Balance, Impaired I ADL's, Impaired Self-Care Skills Discharge Recommendations Plan/Recommendations: Continue POC Treatment Plan/Plan of Care Treatment,Training & Education: Yes Patient would benefit from OT for education, treatment and training to promote independence in ADL's, mobility, safety and/or upper extremity function for ADL's. Plan of Care: ADL Retraining, Functional Mobility, Group Exercise/Act as Ind, Orthotic Fitting/Training, UE Funct Exercise/Act, W/C Management Training Treatment Duration: Nov 12, 2021 Frequency: At least 5 of 7 days/Wk (IRF) Estimated Hrs Per Day: 1.5 hours per day Agreement: Yes Rehab Potential: Fair Time/GCodes Start Time: 10:00 Stop Time: 11:00 Total Time Billed (hr/min): 60 Billed Treatment Time 1 visit ADL x4 Rosalee Laguna OT Oct 27, 2021 11:00
[2021-10-27] MEDS: ONDANSETRON 4 MG (ZOFRAN) ORAL DISSOLVE TAB PO PRN (12:44)
--- NOTE | 2021-10-27 13:01 | Physical Therapy Daily Note ---
PT Daily Note-Current Subjective Pt. sitting up in recliner, c/o he ate lunch but is now having nausea and feels he could vomit. Nurse enters with meds for nausea. Pt. takes it and then agrees to rx " I think I should walk" Pain Location: No Pain Reported Appearance gagging into an emesis tucker Mental Status Patient Orientation: Normal For Age Attachments: Other-See Comments (cam boot) Transfers SCALE: Activities may be completed with or without assistive devices. 8-Jtydkpjddi-hfwtxdr completes the activity by him/herself with no assistance from a helper. 5-Set-up or Clean-up Assistance-helper sets up or cleans up; patient completes activity. [place] assists only prior to or following the activity. 4-Supervision or Touching Assistance-helper provides verbal cues and/or touching/steadying and/or contact guard assistance as patient completes activity. Assistance may be provided throughout the activity or intermittently. 3-Partial/Moderate Assistance-helper does LESS THAN HALF the effort. [place] lifts, holds or supports trunk or limbs, but provides less than half the effort. 2-Substantial/Maximal Assistance-helper does MORE THAN HALF the effort. [place] lifts or holds trunk or limbs and provides more than half the effort. 1-Jkfdrgntu-xsypsl does ALL the effort. Patient does none of the effort to complete the activity. Or, the assistance of 2 or more helpers is required for the patient to complete the activity. If activity was not attempted, code reason: 7-Patient Refused. 9-Not Applicable-not attempted and the patient did not perform the activity before the current illness, exacerbation or injury. 10-Not Attempted due to Environmental Limitations-(lack of equipment, weather restraints, etc.). 88-Not Attempted due to Medical Conditions or Safety Concerns. sit to stand x 6 SBA Weight Bearing Right Lower Extremity: Right Non Weight Bearing Weight Bearing/Tolerated (status confrimed at [facility] with CAM boot on as of 10.23.2021 per Josefina Woods DPT , comminicated to this BODY AND FRAME TECHNICIAN on10.24.2021) othPatient is NWB on the right leg without the CAM boot and apparently is weight bearing on the right leg with the CAM boot but is unclear how much; Clarification from PT evaluation. After gait training, nurse brought Ortho notes from [facility] to this PT and states that "CAM boot is not appropriate at this time". Therefore, patient is still NWB in the right LE until follow up with orthopedic physician. Gait Training Does the Patient Walk?: Yes Gait Assistive Device: FWW 175 ft x 2 FWW, CGA and reminders for pattern and position in FWW Exercises Seated Therapy Exercises: Ankle pumps, Sit to stand, Long arc quads, Hip flexion, Hip abd/add Seated Reps: 12 Assessment Current Status: Good Progress PT Short Term Goals Short Term Goals Time Frame: Oct 29, 2021 Roll Left & Right: 6 Sit to lyin Lying to sitting on side of be: 3 Sit to stand: 4 Chair/ejp-tj-vtpuo transfer: 4 Walk 10 feet: 4 PT Assisted Goals Assisted Goals PT Cylinder Block Mechanic Goals Time Frame: Nov 12, 2021 Roll Left & Right (QC): 6 Sit to Lying (QC): 6 Lying-Sitting on Side/Bed(QC): 6 Sit to Stand (QC): 4 (SBA) Chair/Mvr-bu-Noofe Xfer(QC): 4 (SBA) Toilet Transfer (QC): 4 (SBA) Car Transfer (QC): 4 (SBA) Does the Patient Walk: Yes Walk 10 feet (QC): 4 (GA) Walk 50ft with 2 Turns (QC): 4 (CGA) Walk 150 ft (QC): 88 Walking 10ft on Uneven Surface: 4 (CGA) 1 Step (curb) (QC): 88 4 Steps (QC): 88 12 Steps (QC): 88 Picking up an Object (QC): 4 (CGA) Wheel 50 feet with 2 turns (QC: 6 Wheel 150 feet: 6 PT Plan Treatment/Plan Treatment Plan: Continue Plan of Care Treatment Plan: Bed Mobility, Education, Functional Activity [place], Functional Strength, Group Therapy, Gait, Safety, Therapeutic Exercise, Transfers Treatment Duration: Nov 12, 2021 Frequency: At least 5 of 7 days/Wk (IRF) Estimated Hrs Per Day: 1.5 hours per day Patient and/or Family Agrees t: Yes Safety Risks/Education Patient Education: Gait Training, Transfer Techniques, Correct Positioning Time/GCodes Time In: 1230 Time Out: 1300 Total Billed Treatment Time: 30 Total Billed Treatment 1,GT15m,EX15m GAYLE RASHID BODY AND FRAME TECHNICIAN Oct 27, 2021 13:01
--- NOTE | 2021-10-27 13:33 | Occupational Ther Daily Note ---
OT Current Status-Daily Note Subjective Pt alert, sitting in recliner. present in room. Pt agrees to therapy. No c/o pain at this time. Mental Status/Objective Patient Orientation: Person, Place, Time, Situation ADL-Treatment Therapy Code Descriptions/Definitions Functional [place] Measure: 0=Not Assessed/NA 4=Minimal Assistance 1=Total Assistance 5=Supervision or Setup 2=Maximal Assistance 6=Modified [place] 3=Moderate Assistance 7=Complete IndependenceSCALE: Activities may be completed with or without assistive devices. 8-Gefvjbbdcd-jppiwvj completes the activity by him/herself with no assistance from a helper. 5-Set-up or Clean-up Assistance-helper sets up or cleans up; patient completes activity. [place] assists only prior to or following the activity. 4-Supervision or Touching Assistance-helper provides verbal cues and/or touching/steadying and/or contact guard assistance as patient completes activity. Assistance may be provided throughout the activity or intermittently. 3-Partial/Moderate Assistance-helper does LESS THAN HALF the effort. [place] lift s, holds or supports trunk or limbs, but provides less than half the effort. 2-Substantial/Maximal Assistance-helper does MORE THAN HALF the effort. [place] lifts or holds trunk or limbs and provides more than half the effort. 9-Jssgblytt-cjlxcl does ALL the effort. Patient does none of the effort to complete the activity. Or, the assistance of 2 or more helpers is required for the patient to complete the activity. If activity was not attempted, code reason: 7-Patient Refused. 9-Not Applicable-not attempted and the patient did not perform the activity before the current illness, exacerbation or injury. 10-Not Attempted due to Environmental Limitations-(lack of equipment, weather restraints, etc.). 88-Not Attempted due to Medical Conditions or Safety Concerns. Eating (QC): 6 (Pt able to open containers and use regular utensils to eat.) Other Treatment Pt given medium resistance (red theraband) and HEP for B UE strengthening. Skilled instruction given to pt for correct technique and how to use theraband effectively. Pt completed 5 B UE exercises (shldr abd/add, horizontal shldr abd/add, shldr int/ext rotation, bicep curls, tricep ext) 2 sets 10 reps. Pt required verbal and physical cues for correct technique. Pt will require skilled instruction to become proficient. After therapy, pt sitting in recliner with call light/phone in reach. present in room. All needs met. OT Short Term Goals Short Term Goals Time Frame: Oct 31, 2021 Eatin Oral hygiene: 5 Toileting hygiene: 3 Shower/bathe self: 3 Upper body dressin Lower body dressin Putting on/taking off footwear: 3 (including cam boot) OT Probe Operator Goals Probe Operator Goals Time Frame: Nov 12, 2021 Eating (QC): 6 Oral Hygiene (QC): 6 Toileting Hygiene (QC): 5 Shower/Bathe Self (QC): 5 Upper Body Dressing (QC): 6 Lower Body Dressing (QC): 5 On/Off Footwear (QC): 5 1=Demonstrate adherence to instructed precautions during ADL tasks. 2=Patient will verbalize/demonstrate understanding of assistive devices/modifications for ADL. 3=Patient will improve strength/tolerance for activity to enable patient to perform ADL's. OT Education/Plan Problem List/Assessment Assessment: Decreased Activ Tolerance, Decreased UE Strength Discharge Recommendations Plan/Recommendations: Continue POC Treatment Plan/Plan of Care Patient would benefit from OT for education, treatment and training to promote independence in ADL's, mobility, safety and/or upper extremity function for ADL's. Plan of Care: ADL Retraining, Functional Mobility, Group Exercise/Act as Ind, Orthotic Fitting/Training, UE Funct Exercise/Act, W/C Management Training Treatment Duration: Nov 12, 2021 Frequency: At least 5 of 7 days/Wk (IRF) Estimated Hrs Per Day: 1.5 hours per day Agreement: Yes Rehab Potential: Fair Time/GCodes Start Time: 13:00 Stop Time: 13:30 Total Time Billed (hr/min): 30 Billed Treatment Time 1 visit-ADL 1 (8 min) EX 1 (22 min) CADEN MCLAUGHLIN Oct 27, 2021 13:33
[2021-10-27 20:28] VITALS: BP 116/56
--- NOTE | 2021-10-28 06:17 | PM&R Progress Note ---
Subjective HPI/CC On Admission Date Seen by Provider: Oct 28, 2021 Time Seen by Provider: 10:00 Subjective/Events-last exam 10/28/21: Pt is doing a lot better Non weight bearing for 6 weeks was reiterated by Dr. Wilson but doubt he will maintain No pain was reported otherwise Getting himself shaved Checked meds and labs 10/27/21: Pt doing really well. Orthopedic Surgery will be consulted. Social Work consult too IS used Checked meds and labs Declines any additional lab work to be drawn. 10/26/21: Patient doing well Requests bedpan Cam boot in place 10/25/2021: Patient doing really well Dr. Lubin is appreciated Supportive care Checked meds and labs 10/24/2021: Allevyn on his bottom PT and OT doing well Walked with his cam boot Bowels moving Document Dr. Lubin cardiology and he sees Dr. De La Torre Checked meds and labs 10/23/2021: Pt doing well Bowels are moving at the bedside Made some suicidal statements that weren't really suicidal Labs reviewed External monitor will require cardiology evaluation Weight-bearing as tolerated will be given because he will not do anything otherwise Review of Systems General: Fatigue, Malaise Musculoskeletal: leg pain, foot pain Objective Exam Vital Signs Vital Signs Date Time Temp Pulse Resp B/P (MAP) Pulse Ox O2 Delivery O2 Flow Rate FiO2 10/28/21 20:35 95 Room Air 10/28/21 20:18 37.3 83 18 148/75 (99) Capillary Refill : General Appearance: No Apparent Distress, WD/WN, Chronically ill, Obese HEENT: PERRL/EOMI, Normal ENT Inspection, Pharynx Normal Neck: Full Range of Motion, Normal Inspection, Non Tender, Supple, Carotid Bruit Respiratory: Chest Non Tender, Lungs Clear, Normal Breath Sounds, No Accessory Muscle Use, No Respiratory Distress Cardiovascular: Regular Rate, Rhythm, No Edema, No Gallop, No JVD, No Murmur, Normal Peripheral Pulses Gastrointestinal: Normal Bowel Sounds, No Organomegaly, No Pulsatile Mass, Non Tender, Soft Back: Normal Inspection, No CVA Tenderness, No Vertebral Tenderness Extremity: Normal Capillary Refill, Normal Inspection, Normal Range of Motion (Except right ankle), Non Tender, No Calf Tenderness, No Pedal Edema Neurologic/Psychiatric: Alert, Oriented x3, No Motor/Sensory Deficits, Normal Mood/Affect, studio operations engineer in charge II-XII Norm as Tested, Abnormal Gait, Motor Weakness Skin: Normal Color, Warm/Dry Lymphatic: No Adenopathy Results/Procedures Lab Patient resulted labs reviewed. FIM Transfers Therapy Code Descriptions/Definitions Functional [place] Measure: 0=Not Assessed/NA 4=Minimal Assistance 1=Total Assistance 5=Supervision or Setup 2=Maximal Assistance 6=Modified [place] 3=Moderate Assistance 7=Complete IndependenceSCALE: Activities may be completed with or without assistive devices. 3-Qvgerxqibo-nqjgrcy completes the activity by him/herself with no assistance from a helper. 5-Set-up or Clean-up Assistance-helper sets up or cleans up; patient completes activity. [place] assists only prior to or following the activity. 4-Supervision or Touching Assistance-helper provides verbal cues and/or touching/steadying and/or contact guard assistance as patient completes activity. Assistance may be provided throughout the activity or intermittently. 3-Partial/Moderate Assistance-helper does LESS THAN HALF the effort. [place] lifts, holds or supports trunk or limbs, but provides less than half the effort. 2-Substantial/Maximal Assistance-helper does MORE THAN HALF the effort. [place] lifts or holds trunk or limbs and provides more than half the effort. 4-Slcoilhsm-hmpzkd does ALL the effort. Patient does none of the effort to complete the activity. Or, the assistance of 2 or more helpers is required for the patient to complete the activity. If activity was not attempted, code reason: 7-Patient Refused. 9-Not Applicable-not attempted and the patient did not perform the activity before the current illness, exacerbation or injury. 10-Not Attempted due to Environmental Limitations-(lack of equipment, weather restraints, etc.). 88-Not Attempted due to Medical Conditions or Safety Concerns. Roll Left to Right (QC): 6 Sit to Lying (QC): 6 Sit to Stand (QC): 5 Chair/Ari-kh-Kxent Xfer(QC): 5 Car Transfer (QC): 6 Gait Training Does the Patient Walk?: Yes Distance: 200 x 2 Walk 10 feet (QC): 4 Walk 50 ft with 2 Turns(QC): 4 Walk 150 ft (QC): 4 Walking 10ft/uneven surface-QC: 88 Gait Persons Needed: 1 Gait Assistive Device: FWW Wheelchair Training Does the Pt Use a Wheelchair?: Yes Distance: 150' Wheel 50 ft with 2 turns (QC): 6 Wheel 150 ft (QC): 6 Type of Wheelchair: Manual Stair Training 1 Step (curb) (QC): 88 4 Steps (QC): 88 12 Steps (QC): 88 Balance Picking up an Object (QC): 88 ADL-Treatment Eating (QC): 6 (Pt able to open containers and use regular utensils to eat.) Oral Hygiene (QC): 7 Shower/Bathe Self (QC): 3 (min) Upper Body Dressing (QC): 4 Lower Body Dressing (QC): 4 On/Off Footwear (QC): 4 Toileting Hygiene (QC): 4 Toilet Transfer (QC): 4 Assessment/Plan Assessment and Plan Assess & Plan/Chief Complaint Assessment: 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 Hypertension Hyperlipidemia FRANK Prostate cancer history Urinary incontinence Plan: Inpatient rehab protocol Supportive care Pain control 10/23/2021: Supportive care Pain control Cardiology consult 10/24/2021: Supportive care Orthopedic consult on Wednesday10/25/2021: Orthopedic surgery consult Checked meds and labs Appreciate cardiology 10/26/21: Monitor closely 10/27/21: Supportive care Appreciated Dr Godinez 10/28/21: Non-compliant with NWB (1) History of cerebrovascular accident Assessment & Plan: He reportedly had a cerebrovascular accident in December, and had been taking aspirin and rosuvastatin since then. He may have had a transient ischemic attack during his more recent hospitalization in [place], [place]. His aspirin was changed over to clopidogrel and rosuvastatin changed over to atorvastatin. I would recommend we continue the clopidogrel but for convenience sake, I have changed his atorvastatin back over to rosuvastatin but at a higher dose since he may have some of these tablets at home. He now has an external monitor presumably to screen for atrial fibrillation. This was ordered in [place], [place]. The patient will need to follow-up with his regular linux support engineer at [facility] in [place], [place] following discharge. I have requested the discharge summary as well as some pertinent reports from [facility] in [place], [place] and we are still waiting to receive these records. (2) Sinus bradycardia Assessment & Plan: He was on beta-millie at home. His heart rate this morning is good but he does have a first-degree AV block. Beta-millie was discontinued at the outside hospital. (3) Primary hypertension Assessment & Plan: He is on lisinopril. Blood pressures are intermittently elevated. I will increase his dose of lisinopril and give an extra dose today. I have ordered a follow-up metabolic panel for tomorrow. Avoid beta-millie due to previous bradycardia as noted above (4) Mixed hyperlipidemia Assessment & Plan: As above, I will change his atorvastatin back over to rosuvastatin since he was previously taking this at home. I will increase the dose given his possible recent transient ischemic attack on top of a previous cerebrovascular accident. (5) Obesity Assessment & Plan: He needs to work on weight loss. VANNESA PARDO DO Oct 28, 2021 06:17
[2021-10-28] MEDS: SINEMET 25/100 (CARBIDOPA/LEVODOPA) TAB PO SCH ×3 (07:22→20:24)
[2021-10-28] MEDS: PANTOPRAZOLE 20 MG TABLET (PROTONIX) PO SCH (07:22)
[2021-10-28] MEDS: DOCUSATE SODIUM 100 MG (COLACE) CAP PO SCH ×2 (07:23→20:24)
[2021-10-28] MEDS: lisINopril 40 MG (PRINIVIL) TABLET PO SCH (07:23)
[2021-10-28] MEDS: CLOPIDOGREL 75 MG (PLAVIX) TABLET PO SCH (07:23)
[2021-10-28] MEDS: SENNA W/DOCUSATE (SENOKOT S) TABLET PO SCH ×2 (07:24→20:24)
[2021-10-28] MEDS: polyethylene glycoL POWDER 17 GM (MIRALAX) PACK PO SCH ×2 (07:28→20:25)
[2021-10-28 07:30] VITALS: BP 119/57
[2021-10-28] MEDS: HYDROcodone/APAP 5 MG/325 MG (LORTAB) TAB PO PRN (07:30)
--- NOTE | 2021-10-28 08:23 | Consultation - Ortho ---
Consult - Ortho Subjective Date of Exam 10/28/21 Chief Complaint Broken Right Ankle HPI/Events since last exam Underwent ORIF of right ankle fracture with ORIF of syndesmosis ~1 and 1/2 weeks ago at [facility]. Has been in our rehab unit. No trouble with pain with the ankle. Has been walking on it. Medical, Surgical History - Social History - Family History - Review of Systems - Allergies: Coded Allergies: Penicillins (Verified Allergy, Unknown, Rash, 10/24/21) Sulfa (Sulfonamide Antibiotics) (Verified Allergy, Unknown, Hives, 10/24/21) adhesive tape (Verified Adverse Reaction, Unknown, Rash, 10/24/21) sulfacetamide (Verified Adverse Reaction, Unknown, 10/24/21) Home Meds Reported Medications Omeprazole (Omeprazole) 10 Mg Capsule.dr, 10 MG PO DAILY PRN for HEARTBURN, CAP 10/22/21 Lisinopril (Lisinopril) 20 Mg Tablet, 20 MG PO DAILY, TAB 10/22/21 Clopidogrel Bisulfate (Plavix) 75 Mg Tablet, 75 MG PO DAILY, TAB 10/22/21 Carbidopa/Levodopa (Carbidopa-Levo ER 25-100 Tab) 1 Each Tablet.er, 1 EACH PO TID, TAB 10/22/21 Atorvastatin Calcium (Atorvastatin Calcium) 40 Mg Tablet, 40 MG PO HS, TAB 10/22/21 Acetaminophen (Tylenol Arthritis) 650 Mg Tablet.er, 650 MG PO BID PRN for PAIN- MILD (1-4), TAB 10/22/21 Objective Exam Right Ankle: splint removed, ecchymosis over lower leg, mild swelling, incision C/D/I, palpable distal pulses, sensation intact to light touch grossly Vital Signs Vital Signs Date Time Temp Pulse Resp B/P (MAP) Pulse Ox O2 Delivery O2 Flow Rate FiO2 10/28/21 07:30 37.0 67 16 119/57 (77) 96 Room Air 10/27/21 21:08 98 Room Air 10/27/21 20:28 36.7 75 16 116/56 (76) 98 Room Air 10/27/21 09:00 Room Air Imaging Intraoperative images reviewed from [facility] and demonstrate ORIF of lateral malleolus fracture as well as fixation of syndesmosis, well-reduced in anatomic alignment Assessment and Plan Assessment R Ankle Fx s/p ORIF Problem List R Ankle Fx s/p ORIF Plan Strict NWB of R LE; explained that weightbearing could cause disruption/widening in the fixation Change from splint to cam boot Will repeat x-rays given that he has been bearing weight on it Final Diagonsis R Ankle Fx s/p ORIF Level of the visit: Level 3 (in [facility]'s postop global) ROBBIE HAMM MD Oct 28, 2021 08:23
--- NOTE | 2021-10-28 09:31 | Diagnostic Imaging Report ---
Right ankle INDICATION: Postop ankle pain 3 views were obtained. There are no prior studies for comparison. There is an orthopedic plate and screw fixation device along the lateral aspect of the distal fibula. There are also 2 orthopedic fixation screws traversing the distal tibia and fibula. The orthopedic hardware appears to be in good position. There is no fracture or acute bony abnormality evident. The ankle mortise is not widened and the talar dome is smooth. There does seem be soft tissue edema over the lateral aspect of the ankle joint. IMPRESSION: 1. There is no acute bony abnormality noted. 2. The orthopedic hardware appears to be in good position. Dictated by: Dictated on workstation # [id number]
--- NOTE | 2021-10-28 10:31 | Occupational Ther Daily Note ---
OT Current Status-Daily Note Subjective Denies pain, agreeable to shower. Appearance Returned to supine, all needs within reach, in room at OT departure ADL-Treatment Therapy Code Descriptions/Definitions Functional [place] Measure: 0=Not Assessed/NA 4=Minimal Assistance 1=Total Assistance 5=Supervision or Setup 2=Maximal Assistance 6=Modified [place] 3=Moderate Assistance 7=Complete IndependenceSCALE: Activities may be completed with or without assistive devices. 4-Hbqjebgeju-gigjzwh completes the activity by him/herself with no assistance from a helper. 5-Set-up or Clean-up Assistance-helper sets up or cleans up; patient completes activity. [place] assists only prior to or following the activity. 4-Supervision or Touching Assistance-helper provides verbal cues and/or touching/steadying and/or contact guard assistance as patient completes activity. Assistance may be provided throughout the activity or intermittently. 3-Partial/Moderate Assistance-helper does LESS THAN HALF the effort. [place] lifts, holds or supports trunk or limbs, but provides less than half the effort. 2-Substantial/Maximal Assistance-helper does MORE THAN HALF the effort. [place] lifts or holds trunk or limbs and provides more than half the effort. 7-Sojgqrdvs-seofmb does ALL the effort. Patient does none of the effort to complete the activity. Or, the assistance of 2 or more helpers is required for the patient to complete the activity. If activity was not attempted, code reason: 7-Patient Refused. 9-Not Applicable-not attempted and the patient did not perform the activity before the current illness, exacerbation or injury. 10-Not Attempted due to Environmental Limitations-(lack of equipment, weather restraints, etc.). 88-Not Attempted due to Medical Conditions or Safety Concerns. Eating (QC): 6 Oral Hygiene (QC): 6 Shower/Bathe Self (QC): 4 Upper Body Dressing (QC): 4 Lower Body Dressing (QC): 3 On/Off Footwear: 4 Toileting Hygiene (QC): 3 Toilet Transfer (QC): 3 Shower performed; 100% completed in sitting. RLE wrapped by OT; inicision C/D/I post activity. Re-Education on performing lateral pelvic leans to wash buttocks. No assist needed post cues. Clothing donned seated in w/c. Tactile and verbal cue required to pull shirt down around torso. Extra time to thread BLE's into brief/shorts, but no assist required. Pt fatigues easily with task and requires a rest break after each clothing item (brief and shorts). Poor compliance of non weight bearing when standing for clothing management. Unable to tolerate standing on LLE only, thus assist needed to manage clothing over hips. Reminders also on keeping single UE support on grab bar during clothign management as pt has tendency to rest head on wall to maintain balance. Pt sat to shave santiago. Significant time needed due to length/thickness of santiago. assisted for thoroughness. At this time, Pt is unable to take any steps without bearing weight on RLE. Max cues and education with all stand pivot transfers. Education OT Patient Education: Correct positioning, Modified ADL techniques, Progress toward Goal/Update tx plan, Purpose of tx/functional activities, Reviewed precautions, Rehab process, Safety issues, Transfer techniques, W/C management Teaching Recipient: Patient, Family Teaching Methods: Demonstration, Discussion Response to Teaching: Verbalize Understanding, Reinforcement Needed OT Short Term Goals Short Term Goals Time Frame: Oct 31, 2021 Eatin Oral hygiene: 5 Toileting hygiene: 3 Shower/bathe self: 3 Upper body dressin Lower body dressin Putting on/taking off footwear: 3 (including cam boot) OT Usp Goals Usp Goals Time Frame: Nov 12, 2021 Eating (QC): 6 Oral Hygiene (QC): 6 Toileting Hygiene (QC): 5 Shower/Bathe Self (QC): 5 Upper Body Dressing (QC): 6 Lower Body Dressing (QC): 5 On/Off Footwear (QC): 5 1=Demonstrate adherence to instructed precautions during ADL tasks. 2=Patient will verbalize/demonstrate understanding of assistive devices/modifications for ADL. 3=Patient will improve strength/tolerance for activity to enable patient to perform ADL's. OT Education/Plan Problem List/Assessment Assessment: Decreased Activ Tolerance, Decreased Safety Aware, Decreased UE S trength, Impaired Cognition, Impaired Funct Balance, Impaired I ADL's, Impaired Self-Care Skills Discharge Recommendations Plan/Recommendations: Continue POC Equpiment Recommendations-D/C: Bath Chair Treatment Plan/Plan of Care Treatment,Training & Education: Yes Patient would benefit from OT for education, treatment and training to promote independence in ADL's, mobility, safety and/or upper extremity function for ADL 's. Plan of Care: ADL Retraining, Functional Mobility, Group Exercise/Act as Ind, Orthotic Fitting/Training, UE Funct Exercise/Act, W/C Management Training Treatment Duration: Nov 12, 2021 Frequency: At least 5 of 7 days/Wk (IRF) Estimated Hrs Per Day: 1.5 hours per day Agreement: Yes Rehab Potential: Fair Time/GCodes Start Time: 09:00 Stop Time: 10:30 Total Time Billed (hr/min): 90 Billed Treatment Time 1 visit ADL x6 Rosalee Laguna OT Oct 28, 2021 10:31
--- NOTE | 2021-10-28 12:02 | Physical Therapy Daily Note ---
PT Daily Note-Current Subjective Pt laying Supine in bed with Sp present upon arrival. Per Dr Godinez's note, pt is NWB on R LE. Pt expresses frustration and asks about Xray. Pain Location: No Pain Reported Mental Status Patient Orientation: Person, Place Attachments: Other-See Comments (CAM boot) Transfers SCALE: Activities may be completed with or without assistive devices. 8-Qerjsxzoxz-xievjfc completes the activity by him/herself with no assistance from a helper. 5-Set-up or Clean-up Assistance-helper sets up or cleans up; patient completes activity. [place] assists only prior to or following the activity. 4-Supervision or Touching Assistance-helper provides verbal cues and/or touching/steadying and/or contact guard assistance as patient completes activity. Assistance may be provided throughout the activity or intermittently. 3-Partial/Moderate Assistance-helper does LESS THAN HALF the effort. [place] lifts, holds or supports trunk or limbs, but provides less than half the effort. 2-Substantial/Maximal Assistance-helper does MORE THAN HALF the effort. [place] lifts or holds trunk or limbs and provides more than half the effort. 0-Fmmybasjk-vmgzqp does ALL the effort. Patient does none of the effort to co mplete the activity. Or, the assistance of 2 or more helpers is required for the patient to complete the activity. If activity was not attempted, code reason: 7-Patient Refused. 9-Not Applicable-not attempted and the patient did not perform the activity before the current illness, exacerbation or injury. 10-Not Attempted due to Environmental Limitations-(lack of equipment, weather restraints, etc.). 88-Not Attempted due to Medical Conditions or Safety Concerns. Weight Bearing Right Lower Extremity: Right Non Weight Bearing Left Lower Extremity: Left Weight Bearing/Tolerated (status confrimed at WBAT with CAM boot on as of 10.23.2021 per Josefina Woods DPT , comminicated to this ENGLISH PROFESSOR on10.24.2021) othPatient is NWB on the right leg without the CAM boot and apparently is weight bearing on the right leg with the CAM boot but is unclear how much; Clarification from PT evaluation. After gait training, nurse brought Ortho notes from [facility] to this PT and states that "CAM boot is not appropriate at this time". Therefore, patient is still NWB in the right LE until follow up with orthopedic physician. Exercises Supine Ex: Ankle pumps, Glut sets, Heel Slides (L side only), Short Arc Quads, Straight leg raise, Hip abd/add Supine Reps: 15 Seated Therapy Exercises: Long arc quads, Hip flexion Seated Reps: 15 Treatments ENGLISH PROFESSOR discusses Dr Godinez's note from morning stating pt is NWB. Pt expresses concern over not being strong enough to hop or use UE to offset NWB of R LE. ENGLISH PROFESSOR reminded pt of how non-compliance of WB status could result in further injuring R LE and that Therapists go by what Surgeons decide for WB status. Pt advised that focus must be on strengthening and learning how to be mobile w/in WB status. Pt issued and reviewed written HEP for Supine & Seated Ex. Pt resting at end of tx, all needs met & call light in hand. Assessment Current Status: Fair Progress Pt is visibly frustrated w/NWB status and stated "I thought I was doing well yesterday". PT Short Term Goals Short Term Goals Time Frame: Oct 29, 2021 Roll Left & Right: 6 Sit to lyin Lying to sitting on side of be: 3 Sit to stand: 4 Chair/hye-ua-mkqll transfer: 4 Walk 10 feet: 4 PT Half-Way Goals Mortgage Clerk Goals PT Half-Way Goals Time Frame: Nov 12, 2021 Roll Left & Right (QC): 6 Sit to Lying (QC): 6 Lying-Sitting on Side/Bed(QC): 6 Sit to Stand (QC): 4 (SBA) Chair/Emo-tr-Tgdox Xfer(QC): 4 (SBA) Toilet Transfer (QC): 4 (SBA) Car Transfer (QC): 4 (SBA) Does the Patient Walk: Yes Walk 10 feet (QC): 4 (GA) Walk 50ft with 2 Turns (QC): 4 (CGA) Walk 150 ft (QC): 88 Walking 10ft on Uneven Surface: 4 (CGA) 1 Step (curb) (QC): 88 4 Steps (QC): 88 12 Steps (QC): 88 Picking up an Object (QC): 4 (CGA) Wheel 50 feet with 2 turns (QC: 6 Wheel 150 feet: 6 PT Plan Problem List Problem List: Activity Tolerance, Functional Strength, Safety, Gait Treatment/Plan Treatment Plan: Continue Plan of Care Treatment Plan: Bed Mobility, Education, Functional Activity Nona, Functional Strength, Group Therapy, Gait, Safety, Therapeutic Exercise, Transfers Treatment Duration: Nov 12, 2021 Frequency: At least 5 of 7 days/Wk (IRF) Estimated Hrs Per Day: 1.5 hours per day Patient and/or Family Agrees t: Yes Safety Risks/Education Patient Education: Issued Written HEP, Correct Positioning, Safety Issues Teaching Recipient: Patient Teaching Methods: Discussion Response to Teaching: Verbalize Understanding Time/GCodes Time In: 1100 Time Out: 1200 Total Billed Treatment Time: 60 Total Billed Treatment 1, FA x2 (30m) & EX x2 (30m) AMIRAH SALAS PTA Oct 28, 2021 12:02
--- NOTE | 2021-10-28 15:09 | Physical Therapy Daily Note ---
PT Daily Note-Current Subjective Pt laying Supine in bed asleep upon arrival. Pt agrees to PT but still down from discuss from this morning regarding WB status. Mental Status Patient Orientation: Person, Place, Situation Transfers SCALE: Activities may be completed with or without assistive devices. 8-Uccfqhoene-zhrdidi completes the activity by him/herself with no assistance from a helper. 5-Set-up or Clean-up Assistance-helper sets up or cleans up; patient completes activity. [place] assists only prior to or following the activity. 4-Supervision or Touching Assistance-helper provides verbal cues and/or touching/steadying and/or contact guard assistance as patient completes activity. Assistance may be provided throughout the activity or intermittently. 3-Partial/Moderate Assistance-helper does LESS THAN HALF the effort. [place] lifts, holds or supports trunk or limbs, but provides less than half the effort. 2-Substantial/Maximal Assistance-helper does MORE THAN HALF the effort. [place] lifts or holds trunk or limbs and provides more than half the effort. 4-Unjwtpnoz-dumdhb does ALL the effort. Patient does none of the effort to complete the activity. Or, the assistance of 2 or more helpers is required for the patient to complete the activity. If activity was not attempted, code reason: 7-Patient Refused. 9-Not Applicable-not attempted and the patient did not perform the activity before the current illness, exacerbation or injury. 10-Not Attempted due to Environmental Limitations-(lack of equipment, weather restraints, etc.). 88-Not Attempted due to Medical Conditions or Safety Concerns. Weight Bearing Right Lower Extremity: Right Non Weight Bearing Left Lower Extremity: Left Weight Bearing/Tolerated othPatient is NWB on the right leg without the CAM boot and apparently is weight bearing on the right leg with the CAM boot but is unclear how much; Clarification from PT evaluation. After gait training, nurse brought Ortho notes from [facility] to this PT and states that "CAM boot is not appropriate at this time". Therefore, patient is still NWB in the right LE until follow up with orthopedic physician. Exercises Supine Ex: Ankle pumps, Quad Set, Glut sets, Heel Slides (L side only), Straig ht leg raise, Hip abd/add Supine Reps: 15 Treatments Pt again discusses equipment pt has at home (tall toilet, walk in shower w/grabbars, FWW & 4WW as well as cane, newly built ramp). Pt advises the fact that when he had walked yesterday, he weight bears a lot w/arms and although R foot touches ground it does not bear much weight. LEAD MANUFACTURING TECHNICIAN reminds pt that currently he is NWB on R LE. Pt wants to talk to Dr Briones about possible change in WB status from Dr Godinez. Pt completes Supine Ex then rests. All needs met, call light in hand. Assessment Current Status: Fair Progress Pt does not want to accept current WB status. Wants to talk to Dr Briones then Dr Godinez. PT Short Term Goals Short Term Goals Time Frame: Oct 29, 2021 Roll Left & Right: 6 Sit to lyin Lying to sitting on side of be: 3 Sit to stand: 4 Chair/qhq-qj-fhfny transfer: 4 Walk 10 feet: 4 PT Snf Goals Cripple Cutter Goals PT Snf Goals Time Frame: Nov 12, 2021 Roll Left & Right (QC): 6 Sit to Lying (QC): 6 Lying-Sitting on Side/Bed(QC): 6 Sit to Stand (QC): 4 (SBA) Chair/Fel-eu-Gplxi Xfer(QC): 4 (SBA) Toilet Transfer (QC): 4 (SBA) Car Transfer (QC): 4 (SBA) Does the Patient Walk: Yes Walk 10 feet (QC): 4 (GA) Walk 50ft with 2 Turns (QC): 4 (CGA) Walk 150 ft (QC): 88 Walking 10ft on Uneven Surface: 4 (CGA) 1 Step (curb) (QC): 88 4 Steps (QC): 88 12 Steps (QC): 88 Picking up an Object (QC): 4 (CGA) Wheel 50 feet with 2 turns (QC: 6 Wheel 150 feet: 6 PT Plan Problem List Problem List: Activity Tolerance, Functional Strength, Gait Treatment/Plan Treatment Plan: Continue Plan of Care Treatment Plan: Bed Mobility, Education, Functional Activity Nona, Functional Strength, Group Therapy, Gait, Safety, Therapeutic Exercise, Transfers Treatment Duration: Nov 12, 2021 Frequency: At least 5 of 7 days/Wk (IRF) Estimated Hrs Per Day: 1.5 hours per day Patient and/or Family Agrees t: Yes Safety Risks/Education Patient Education: Gait Training, Transfer Techniques, Correct Positioning, Safety Issues Teaching Recipient: Patient Teaching Methods: Discussion Response to Teaching: Verbalize Understanding Time/GCodes Time In: 1400 Time Out: 1430 Total Billed Treatment Time: 30 Total Billed Treatment 1, FA (15m) & EX (15m) AMIRAH SALAS PTA Oct 28, 2021 15:09
[2021-10-28 20:18] VITALS: BP 148/75
[2021-10-28] MEDS: ACETAMINOPHEN 325 MG TABLET PO PRN (20:25)
[2021-10-29 07:30] VITALS: BP 140/70
[2021-10-29] MEDS: lisINopril 40 MG (PRINIVIL) TABLET PO SCH (07:44)
[2021-10-29] MEDS: PANTOPRAZOLE 20 MG TABLET (PROTONIX) PO SCH (07:44)
[2021-10-29] MEDS: SINEMET 25/100 (CARBIDOPA/LEVODOPA) TAB PO SCH ×3 (07:44→20:07)
[2021-10-29] MEDS: CLOPIDOGREL 75 MG (PLAVIX) TABLET PO SCH (07:44)
--- NOTE | 2021-10-29 09:03 | Occupational Ther Daily Note ---
OT Current Status-Daily Note Subjective Denies pain, agreeable to treatment. Appearance Returned to supine, all needs within reach, in room. Mental Status/Objective Patient Orientation: Person, Place, Situation ADL-Treatment Therapy Code Descriptions/Definitions Functional [place] Measure: 0=Not Assessed/NA 4=Minimal Assistance 1=Total Assistance 5=Supervision or Setup 2=Maximal Assistance 6=Modified [place] 3=Moderate Assistance 7=Complete IndependenceSCALE: Activities may be completed with or without assistive devices. 3-Venuuvzdvb-phnmsco completes the activity by him/herself with no assistance from a helper. 5-Set-up or Clean-up Assistance-helper sets up or cleans up; patient completes activity. [place] assists only prior to or following the activity. 4-Supervision or Touching Assistance-helper provides verbal cues and/or touching/steadying and/or contact guard assistance as patient completes activity. Assistance may be provided throughout the activity or intermittently. 3-Partial/Moderate Assistance-helper does LESS THAN HALF the effort. [place] lifts, holds or supports trunk or limbs, but provides less than half the effort. 2-Substantial/Maximal Assistance-helper does MORE THAN HALF the effort. [place] lifts or holds trunk or limbs and provides more than half the effort. 2-Gigirylzk-fvxqyi does ALL the effort. Patient does none of the effort to complete the activity. Or, the assistance of 2 or more helpers is required for the patient to complete the activity. If activity was not attempted, code reason: 7-Patient Refused. 9-Not Applicable-not attempted and the patient did not perform the activity before the current illness, exacerbation or injury. 10-Not Attempted due to Environmental Limitations-(lack of equipment, weather restraints, etc.). 88-Not Attempted due to Medical Conditions or Safety Concerns. Eating (QC): 5 Oral Hygiene (QC): 5 Upper Body Dressing (QC): 4 Lower Body Dressing (QC): 3 On/Off Footwear: 4 Dressing tasks performed seated at EOB. Pt requires max cues in standing to offload weight on RLE. Incontinent of urine contained in brief. Pt able to perform oren care in sitting with set up. Pt able to thread BLE's into brief with extra effort. Short rest break needed before standing for clothing management due to fatigue. Max a to pull clothing up to waist in standing as pt requires BUE support on walker to maintain balance. Poor compliance with NWB status. He sat to brush teeth with set up. Education OT Patient Education: Correct positioning, Energy conservation, Modified ADL techniques, Progress toward Goal/Update tx plan, Purpose of tx/functional activities, Reviewed precautions, Rehab process, Safety issues, Transfer techniques, W/C management Teaching Recipient: Patient Teaching Methods: Demonstration, Discussion Response to Teaching: Verbalize Understanding, Reinforcement Needed OT Short Term Goals Short Term Goals Time Frame: Oct 31, 2021 Eatin Oral hygiene: 5 Toileting hygiene: 3 Shower/bathe self: 3 Upper body dressin Lower body dressin Putting on/taking off footwear: 3 (including cam boot) OT Assisted Goals Assisted Goals Time Frame: Nov 12, 2021 Eating (QC): 6 Oral Hygiene (QC): 6 Toileting Hygiene (QC): 5 Shower/Bathe Self (QC): 5 Upper Body Dressing (QC): 6 Lower Body Dressing (QC): 5 On/Off Footwear (QC): 5 1=Demonstrate adherence to instructed precautions during ADL tasks. 2=Patient will verbalize/demonstrate understanding of assistive devices/modifications for ADL. 3=Patient will improve strength/tolerance for activity to enable patient to perform ADL's. OT Education/Plan Problem List/Assessment Assessment: Decreased Activ Tolerance, Decreased Safety Aware, Decreased UE Strength, Impaired Funct Balance, Impaired I ADL's, Impaired Self-Care Skills Discharge Recommendations Plan/Recommendations: Continue POC Treatment Plan/Plan of Care Treatment,Training & Education: Yes Patient would benefit from OT for education, treatment and training to promote independence in ADL's, mobility, safety and/or upper extremity function for ADL's. Plan of Care: ADL Retraining, Functional Mobility, Group Exercise/Act as Ind, Orthotic Fitting/Training, UE Funct Exercise/Act, W/C Management Training Treatment Duration: Nov 12, 2021 Frequency: At least 5 of 7 days/Wk (IRF) Estimated Hrs Per Day: 1.5 hours per day Agreement: Yes Rehab Potential: Fair Time/GCodes Start Time: 07:30 Stop Time: 08:00 Total Time Billed (hr/min): 30 Billed Treatment Time 1 visit ADL x2 Rosalee Laguna OT Oct 29, 2021 09:03
[2021-10-29] MEDS: SENNA W/DOCUSATE (SENOKOT S) TABLET PO SCH ×2 (09:39→20:07)
[2021-10-29] MEDS: DOCUSATE SODIUM 100 MG (COLACE) CAP PO SCH ×2 (09:39→20:07)
[2021-10-29] MEDS: polyethylene glycoL POWDER 17 GM (MIRALAX) PACK PO SCH ×2 (09:39→21:01)
--- NOTE | 2021-10-29 10:12 | PM&R Progress Note ---
Subjective HPI/CC On Admission Date Seen by Provider: Oct 29, 2021 Time Seen by Provider: 10:00 Subjective/Events-last exam 10/29/21: BM are regular Dressing changed tomorrow, they are changed every other day Works the knee scooter really well Trying to minimally bear weight 10/28/21: Pt is doing a lot better Non weight bearing for 6 weeks was reiterated by Dr. Wilson but doubt he will maintain No pain was reported otherwise Getting himself shaved Checked meds and labs 10/27/21: Pt doing really well. Orthopedic Surgery will be consulted. Social Work consult too IS used Checked meds and labs Declines any additional lab work to be drawn. 10/26/21: Patient doing well Requests bedpan Cam boot in place 10/25/2021: Patient doing really well Dr. Lubin is appreciated Supportive care Checked meds and labs 10/24/2021: Allevyn on his bottom PT and OT doing well Walked with his cam boot Bowels moving Document Dr. Lubin cardiology and he sees Dr. De La Torre Checked meds and labs 10/23/2021: Pt doing well Bowels are moving at the bedside Made some suicidal statements that weren't really suicidal Labs reviewed External monitor will require cardiology evaluation Weight-bearing as tolerated will be given because he will not do anything otherwise Review of Systems General: Fatigue, Malaise Musculoskeletal: leg pain Objective Exam Vital Signs Vital Signs Date Time Temp Pulse Resp B/P (MAP) Pulse Ox O2 Delivery O2 Flow Rate FiO2 10/29/21 20:46 96 Room Air 10/29/21 20:00 35.7 75 16 135/64 (87) Capillary Refill : General Appearance: No Apparent Distress, WD/WN, Chronically ill, Obese HEENT: PERRL/EOMI, Normal ENT Inspection, Pharynx Normal Neck: Full Range of Motion, Normal Inspection, Non Tender, Supple, Carotid Bruit Respiratory: Chest Non Tender, Lungs Clear, Normal Breath Sounds, No Accessory Muscle Use, No Respiratory Distress Cardiovascular: Regular Rate, Rhythm, No Edema, No Gallop, No JVD, No Murmur, Normal Peripheral Pulses Gastrointestinal: Normal Bowel Sounds, No Organomegaly, No Pulsatile Mass, Non Tender, Soft Back: Normal Inspection, No CVA Tenderness, No Vertebral Tenderness Extremity: Normal Capillary Refill, Normal Inspection, Normal Range of Motion (Except right ankle), Non Tender, No Calf Tenderness, No Pedal Edema Neurologic/Psychiatric: Alert, Oriented x3, No Motor/Sensory Deficits, Normal Mood/Affect, head turning machine operator II-XII Norm as Tested, Abnormal Gait, Motor Weakness Skin: Normal Color, Warm/Dry Lymphatic: No Adenopathy Results/Procedures Lab Patient resulted labs reviewed. FIM Transfers Therapy Code Descriptions/Definitions Functional [place] Measure: 0=Not Assessed/NA 4=Minimal Assistance 1=Total Assistance 5=Supervision or Setup 2=Maximal Assistance 6=Modified [place] 3=Moderate Assistance 7=Complete IndependenceSCALE: Activities may be completed with or without assistive devices. 2-Zhcbktymkq-xyjpjau completes the activity by him/herself with no assistance from a helper. 5-Set-up or Clean-up Assistance-helper sets up or cleans up; patient completes activity. [place] assists only prior to or following the activity. 4-Supervision or Touching Assistance-helper provides verbal cues and/or touching/steadying and/or contact guard assistance as patient completes activity. Assistance may be provided throughout the activity or intermittently. 3-Partial/Moderate Assistance-helper does LESS THAN HALF the effort. [place] lifts, holds or supports trunk or limbs, but provides less than half the effort. 2-Substantial/Maximal Assistance-helper does MORE THAN HALF the effort. [place] lifts or holds trunk or limbs and provides more than half the effort. 0-Ziprvllyw-bzrcfd does ALL the effort. Patient does none of the effort to complete the activity. Or, the assistance of 2 or more helpers is required for the patient to complete the activity. If activity was not attempted, code reason: 7-Patient Refused. 9-Not Applicable-not attempted and the patient did not perform the activity before the current illness, exacerbation or injury. 10-Not Attempted due to Environmental Limitations-(lack of equipment, weather restraints, etc.). 88-Not Attempted due to Medical Conditions or Safety Concerns. Roll Left to Right (QC): 6 Sit to Lying (QC): 6 Sit to Stand (QC): 5 Chair/Egf-tj-Mwtwd Xfer(QC): 5 Car Transfer (QC): 6 Gait Training Does the Patient Walk?: Yes Distance: 200 x 2 Walk 10 feet (QC): 4 Walk 50 ft with 2 Turns(QC): 4 Walk 150 ft (QC): 4 Walking 10ft/uneven surface-QC: 88 Gait Persons Needed: 1 Gait Assistive Device: FWW Wheelchair Training Does the Pt Use a Wheelchair?: Yes Distance: 150' Wheel 50 ft with 2 turns (QC): 6 Wheel 150 ft (QC): 6 Type of Wheelchair: Manual Stair Training 1 Step (curb) (QC): 88 4 Steps (QC): 88 12 Steps (QC): 88 Balance Picking up an Object (QC): 88 ADL-Treatment Eating (QC): 5 Oral Hygiene (QC): 5 Shower/Bathe Self (QC): 4 Upper Body Dressing (QC): 4 Lower Body Dressing (QC): 3 On/Off Footwear (QC): 4 Toileting Hygiene (QC): 3 Toilet Transfer (QC): 3 Assessment/Plan Assessment and Plan Assess & Plan/Chief Complaint Assessment: 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 Hypertension Hyperlipidemia FRANK Prostate cancer history Urinary incontinence Plan: Inpatient rehab protocol Supportive care Pain control 10/23/2021: Supportive care Pain control Cardiology consult 10/24/2021: Supportive care Orthopedic consult on Wednesday10/25/2021: Orthopedic surgery consult Checked meds and labs Appreciate cardiology 10/26/21: Monitor closely 10/27/21: Supportive care Appreciated Dr Godinez 10/28/21: Non-compliant with NWB 10/29/21: More practice with knee scooter (1) History of cerebrovascular accident Assessment & Plan: He reportedly had a cerebrovascular accident in December, and had been taking aspirin and rosuvastatin since then. He may have had a transient ischemic attack during his more recent hospitalization in [place], [place]. His aspirin was changed over to clopidogrel and rosuvastatin changed over to atorvastatin. I would recommend we continue the clopidogrel but for convenience sake, I have changed his atorvastatin back over to rosuvastatin but at a higher dose since he may have some of these tablets at home. He now has an external monitor presumably to screen for atrial fibrillation. This was ordered in [place], [place]. The patient will need to follow-up with his regular music historian at [facility] in [place], [place] following discharge. I have requested the discharge summary as well as some pertinent reports from [facility] in [place], [place] and we are still waiting to receive these records. (2) Sinus bradycardia Assessment & Plan: He was on beta-millie at home. His heart rate this morning is good but he does have a first-degree AV block. Beta-millie was discontinued at the outside hospital. (3) Primary hypertension Assessment & Plan: He is on lisinopril. Blood pressures are intermittently elevated. I will increase his dose of lisinopril and give an extra dose today. I have ordered a follow-up metabolic panel for tomorrow. Avoid beta-millie due to previous bradycardia as noted above (4) Mixed hyperlipidemia Assessment & Plan: As above, I will change his atorvastatin back over to rosuvastatin since he was previously taking this at home. I will increase the dose given his possible recent transient ischemic attack on top of a previous cerebrovascular accident. (5) Obesity Assessment & Plan: He needs to work on weight loss. VANNESA PARDO DO Oct 29, 2021 10:11
--- NOTE | 2021-10-29 10:30 | Physical Therapy Daily Note ---
PT Daily Note-Current Subjective Pt sitting in [facility] in room upon arrival. Pt agrees to PT/OT co-treat for focus on static standing activity and knee scooter mobility. Pain Location: No Pain Reported Mental Status Patient Orientation: Person, Place, Time, Situation Attachments: Other-See Comments (CAM boot when up) Transfers SCALE: Activities may be completed with or without assistive devices. 3-Yerkiohlcr-bbbxlmu completes the activity by him/herself with no assistance from a helper. 5-Set-up or Clean-up Assistance-helper sets up or cleans up; patient completes activity. [place] assists only prior to or following the activity. 4-Supervision or Touching Assistance-helper provides verbal cues and/or touching/steadying and/or contact guard assistance as patient completes activity. Assistance may be provided throughout the activity or intermittently. 3-Partial/Moderate Assistance-helper does LESS THAN HALF the effort. [place] lifts, holds or supports trunk or limbs, but provides less than half the effort. 2-Substantial/Maximal Assistance-helper does MORE THAN HALF the effort. [place] lifts or holds trunk or limbs and provides more than half the effort. 3-Nmfhtddbq-bxkvoz does ALL the effort. Patient does none of the effort to complete the activity. Or, the assistance of 2 or more helpers is required for the patient to complete the activity. If activity was not attempted, code reason: 7-Patient Refused. 9-Not Applicable-not attempted and the patient did not perform the activity before the current illness, exacerbation or injury. 10-Not Attempted due to Environmental Limitations-(lack of equipment, weather restraints, etc.). 88-Not Attempted due to Medical Conditions or Safety Concerns. Sit to Stand (QC): 4 Chair/Wav-vg-Nepkq Xfer(QC): 4 Weight Bearing Right Lower Extremity: Right Non Weight Bearing Left Lower Extremity: Left Weight Bearing/Tolerated othPatient is NWB on the right leg without the CAM boot and apparently is weight bearing on the right leg with the CAM boot but is unclear how much; Clarification from PT evaluation. After gait training, nurse brought Ortho notes from [facility] to this PT and states that "CAM boot is not appropriate at this time". Therefore, patient is still NWB in the right LE until follow up with orthopedic physician. Gait Training Distance: 30', 60' Walk 10 feet (QC): 4 Walk 50 ft with 2 Turns(QC): 4 Gait Persons Needed: 1 Pt uses knee scooter and is a little shaky/off balance to start. After adjusting knee platform to lower position for comfort, pt looks more comfortable and able to amb. farther than previous attempt. Wheelchair Training Does the Pt Use a Wheelchair?: Yes Wheel 50 ft with 2 turns (QC): 5 Wheel 150 ft (QC): 5 Type of Wheelchair: Manual Treatments Pt participated in several static standing activities while in parallel bars. Go al to promote increased standing tolerance, balance/strength of LLE, and decreasing UE support in order to perform adls such as clothing management. SBA- CGA to stand from w/c. If using BUE support, pt able to maintain NWB on RLE (for ~ 1-2 minutes) with SBA-CGA. When removing LUE, pt requires CGA and intermittent verbal cues to offload weight. Increase in balance assist required when removing RUE support. Pt then completed activity with clothespins placed strategically to simulate pulling clothing up to waist. Poor tolerance and adherence to NWB when removing RUE. Education on alternating hands on walker/grab bar during clothing management and performing as much of task as possible with LUE before adjusting with Right. OT and PT attempt use of knee scooter for mobility as pt is unable to bear weight through arms to hop. Initially, pt required mod-max a to transfer to scooter and maintain balance. R knee cushion lowered and slight improvement noted in transition. LLE slightly shaky with propulsion and safety appears to be an issue. Pt will need increased practice if this method of mobility is continued. OT departs at this time. Pt propels in hallway and returns to room. Pt transfers back to bed to rest due to fatigue. ASSISTANT GOLF COACH switches WCH per pt request. Pt resting at end of tx with all needs met, call light in hand. Assessment Current Status: Good Progress Pt is apprehensive about knee scooter but improves after knee platform is lowered and second trial. PT Short Term Goals Short Term Goals Time Frame: Oct 29, 2021 Roll Left & Right: 6 Sit to lyin Lying to sitting on side of be: 3 Sit to stand: 4 Chair/voq-hz-qlbbs transfer: 4 Walk 10 feet: 4 PT Skilled Nursing Goals Prom Burn Off Operator Goals PT Prom Burn Off Operator Goals Time Frame: Nov 12, 2021 Roll Left & Right (QC): 6 Sit to Lying (QC): 6 Lying-Sitting on Side/Bed(QC): 6 Sit to Stand (QC): 4 (SBA) Chair/Bqp-hp-Faior Xfer(QC): 4 (SBA) Toilet Transfer (QC): 4 (SBA) Car Transfer (QC): 4 (SBA) Does the Patient Walk: Yes Walk 10 feet (QC): 4 (GA) Walk 50ft with 2 Turns (QC): 4 (CGA) Walk 150 ft (QC): 88 Walking 10ft on Uneven Surface: 4 (CGA) 1 Step (curb) (QC): 88 4 Steps (QC): 88 12 Steps (QC): 88 Picking up an Object (QC): 4 (CGA) Wheel 50 feet with 2 turns (QC: 6 Wheel 150 feet: 6 PT Plan Problem List Problem List: Activity Tolerance, Functional Strength, Gait Treatment/Plan Treatment Plan: Continue Plan of Care Treatment Plan: Bed Mobility, Education, Functional Activity Nona, Functional Strength, Group Therapy, Gait, Safety, Therapeutic Exercise, Transfers Treatment Duration: Nov 12, 2021 Frequency: At least 5 of 7 days/Wk (IRF) Estimated Hrs Per Day: 1.5 hours per day Patient and/or Family Agrees t: Yes Safety Risks/Education Patient Education: Gait Training, Correct Positioning, Safety Issues Teaching Recipient: Patient Teaching Methods: Discussion Response to Teaching: Verbalize Understanding Time/GCodes Time In: 900 Time Out: 1030 Total Billed Treatment Time: 90 Total Billed Treatment Co-treat w/OT for 60m (900-1000) 1, WCH (20m), GT x2 (25m) & FA x3 (45m) AMIRAH SALAS ASSISTANT GOLF COACH Oct 29, 2021 10:29
--- NOTE | 2021-10-29 10:40 | Occupational Ther Daily Note ---
OT Current Status-Daily Note Subjective Denies pain. Agreeable to co-treat due to new WB status and Pt needing 2 skilled clinicians to progress mobility and adls. Appearance Pt left sitting in w/c with physical therapist. ADL-Treatment Therapy Code Descriptions/Definitions Functional [place] Measure: 0=Not Assessed/NA 4=Minimal Assistance 1=Total Assistance 5=Supervision or Setup 2=Maximal Assistance 6=Modified [place] 3=Moderate Assistance 7=Complete IndependenceSCALE: Activities may be completed with or without assistive devices. 6-Mvnooleqgi-zrbyzor completes the activity by him/herself with no assistance from a helper. 5-Set-up or Clean-up Assistance-helper sets up or cleans up; patient completes activity. [place] assists only prior to or following the activity. 4-Supervision or Touching Assistance-helper provides verbal cues and/or touching/steadying and/or contact guard assistance as patient completes activity. Assistance may be provided throughout the activity or intermittently. 3-Partial/Moderate Assistance-helper does LESS THAN HALF the effort. [place] lifts, holds or supports trunk or limbs, but provides less than half the effort. 2-Substantial/Maximal Assistance-helper does MORE THAN HALF the effort. [place] lifts or holds trunk or limbs and provides more than half the effort. 9-Gurszbhbi-upzyky does ALL the effort. Patient does none of the effort to complete the activity. Or, the assistance of 2 or more helpers is required for the patient to complete the activity. If activity was not attempted, code reason: 7-Patient Refused. 9-Not Applicable-not attempted and the patient did not perform the activity before the current illness, exacerbation or injury. 10-Not Attempted due to Environmental Limitations-(lack of equipment, weather restraints, etc.). 88-Not Attempted due to Medical Conditions or Safety Concerns. Other Treatment Pt participated in several static standing activities while in parallel bars. Goal to promote increased standing tolerance, balance/strength of LLE, and decreasing UE support in order to perform adls such as clothing management. SBA- CGA to stand from w/c. If using BUE support, pt able to maintain NWB on RLE (for ~ 1-2 minutes) with SBA-CGA. When removing LUE, pt requires CGA and intermittent verbal cues to offload weight. Increase in balance assist required when removing RUE support. Pt then completed activity with clothespins placed strategically to simulate pulling clothing up to waist. Poor tolerance and adherence to NWB when removing RUE. Education on alternating hands on walker/grab bar during clothing management and performing as much of task as possible with LUE before adjusting with Right. OT and PT attempt use of knee scooter for mobility as pt is unable to bear weight through arms to hop. Initially, pt required mod-max a to transfer to scooter and maintain balance. R knee cushion lowered and slight improvement noted in transition. LLE slightly shaky with propulsion and safety appears to be an issue. Pt will need increased practice if this method of mobility is continued. Education OT Patient Education: Correct positioning, Energy conservation, Modified ADL techniques, Progress toward Goal/Update tx plan, Purpose of tx/functional activities, Reviewed precautions, Safety issues, Transfer techniques, Use of adapted equipment, W/C management Teaching Recipient: Patient Teaching Methods: Demonstration, Discussion Response to Teaching: Verbalize Understanding, Reinforcement Needed OT Short Term Goals Short Term Goals Time Frame: Oct 31, 2021 Eatin Oral hygiene: 5 Toileting hygiene: 3 Shower/bathe self: 3 Upper body dressin Lower body dressin Putting on/taking off footwear: 3 (including cam boot) OT Crystalizer Operator Goals Crystalizer Operator Goals Time Frame: Nov 12, 2021 Eating (QC): 6 Oral Hygiene (QC): 6 Toileting Hygiene (QC): 5 Shower/Bathe Self (QC): 5 Upper Body Dressing (QC): 6 Lower Body Dressing (QC): 5 On/Off Footwear (QC): 5 1=Demonstrate adherence to instructed precautions during ADL tasks. 2=Patient will verbalize/demonstrate understanding of assistive devices/modifications for ADL. 3=Patient will improve strength/tolerance for activity to enable patient to perform ADL's. OT Education/Plan Problem List/Assessment Assessment: Decreased Activ Tolerance, Decreased Safety Aware, Decreased UE Strength, Edema, Impaired Cognition, Impaired Funct Balance, Impaired Self-Care Skills Discharge Recommendations Plan/Recommendations: Continue POC Treatment Plan/Plan of Care Treatment,Training & Education: Yes Patient would benefit from OT for education, treatment and training to promote independence in ADL's, mobility, safety and/or upper extremity function for ADL's. Plan of Care: ADL Retraining, Functional Mobility, Group Exercise/Act as Ind, Orthotic Fitting/Training, UE Funct Exercise/Act, W/C Management Training Treatment Duration: Nov 12, 2021 Frequency: At least 5 of 7 days/Wk (IRF) Estimated Hrs Per Day: 1.5 hours per day Agreement: Yes Rehab Potential: Fair Time/GCodes Start Time: 09:00 Stop Time: 10:00 Total Time Billed (hr/min): 60 Billed Treatment Time 1 visit FA x4 Rosalee Laguna OT Oct 29, 2021 10:39
--- NOTE | 2021-10-29 15:32 | Cardiology Progress Note ---
Progress Note-Cardiology Events since last exam Date Seen by Provider: Oct 29, 2021 Time Seen by Provider: 15:27 Events since last exam I am following him due to history of stroke. We did receive the records from [facility] in [place] [address]. The discharge summary states that the patient did have an MRI while he was in that hospital and this showed evidence of a subacute stroke. He continues to work with physical and Occupational Therapy without any significant dyspnea. He denies chest pain, palpitations, or syncope. He still has mild bilateral lower extremity edema. Certain portions of this document may have been dictated utilizing voice recognition technology. Inherent to this technology, typographical and grammatical errors may exist. As much as I am diligent to identify and correct these mistakes, some errors may remain in the document. Vitals Last set of Vitals Signs Vital Signs 10/29/21 10/29/21 07:30 09:44 Temp 36.8 Pulse 68 Resp 18 B/P (MAP) 140/70 (93) Pulse Ox 96 O2 Delivery Room Air Exam Vital Signs Vital Signs Date Time Temp Pulse Resp B/P (MAP) Pulse Ox O2 Delivery O2 Flow Rate FiO2 10/29/21 09:44 Room Air 10/29/21 07:30 36.8 68 18 140/70 (93) 96 Physical Exam General: Alert. No acute distress. Eye: No xanthelasma. HENT: Normocephalic. Neck: Jugular venous pressure does not appear elevated. Respiratory: Lungs are clear to auscultation. Respirations are non-labored. Breath sounds are equal. Symmetrical chest wall expansion. Cardiovascular: Normal rate. Regular rhythm. No murmur. No gallop. 1+ bilateral pretibial edema. Gastrointestinal: Soft. Normal bowel sounds. Skin: Warm. Dry. Neurologic: Alert and oriented to person, place, time. Cranial nerves 3-11 grossly intact. Psychiatric: Cooperative. Appropriate mood & affect. Diagnosis/Problems Diagnosis/Problems (1) History of cerebrovascular accident Assessment & Plan: He reportedly had a cerebrovascular accident in December, and had been taking aspirin and rosuvastatin since then. As above, he had another stroke during his more recent hospitalization in [place], [place]. His aspirin was changed over to clopidogrel. His rosuvastatin changed over to atorvastatin. I would recommend we continue the clopidogrel but for convenience sake, I have changed his atorvastatin back over to rosuvastatin but at a higher dose since he may have some of these tablets at home. He now has an external monitor presumably to screen for atrial fibrillation. This was ordered in [place], [place]. The patient will need to follow-up with his regular microsoft exchange architect at [facility] in [place], [place] following discharge. (2) Sinus bradycardia Assessment & Plan: He was on beta-millie at home. Beta-millie was discontinued at the outside hospital due to bradycardia. (3) Primary hypertension Assessment & Plan: He is on lisinopril. Blood pressures are intermittently elevated. I did increase his dose of lisinopril. We may need to give this another week or 2 to see the final effect on his blood pressure. Avoid beta- millie due to previous bradycardia as noted above (4) Mixed hyperlipidemia Assessment & Plan: I changed his atorvastatin to rosuvastatin and increased the dose given his previous cerebrovascular accident. He was taking rosuvastatin at home. (5) Obesity Assessment & Plan: He needs to work on weight loss. OZZIE CAPPS JR, MD Oct 29, 2021 15:32
[2021-10-29] MEDS: ONDANSETRON 4 MG (ZOFRAN) ORAL DISSOLVE TAB PO PRN (16:04)
[2021-10-29 20:00] VITALS: BP 135/64
[2021-10-29] MEDS: ROSUVASTATIN 10 MG (CRESTOR) TABLET PO SCH (20:07)
[2021-10-29] MEDS: ACETAMINOPHEN 325 MG TABLET PO PRN (20:10)
[2021-10-30 06:25] LABS: POTASSIUM 4.2 MMOL/L (3.6-5.0)
[2021-10-30 06:26] LABS: CALCIUM 9.2 MG/DL (8.5-10.1)
[2021-10-30 06:31] LABS: CREATININE SERUM 0.92 MG/DL (0.60-1.30)
--- NOTE | 2021-10-30 06:52 | PM&R Progress Note ---
Subjective HPI/CC On Admission Date Seen by Provider: Oct 30, 2021 Time Seen by Provider: 12:00 Subjective/Events-last exam 10/30/21: Pt doing really well Incision looks good Wheelchair at home will be able to navigate better with that Non-weight bearing is still a challenge 10/29/21: BM are regular Dressing changed tomorrow, they are changed every other day Works the knee scooter really well Trying to minimally bear weight 10/28/21: Pt is doing a lot better Non weight bearing for 6 weeks was reiterated by Dr. Wilson but doubt he will maintain No pain was reported otherwise Getting himself shaved Checked meds and labs 10/27/21: Pt doing really well. Orthopedic Surgery will be consulted. Social Work consult too IS used Checked meds and labs Declines any additional lab work to be drawn. 10/26/21: Patient doing well Requests bedpan Cam boot in place 10/25/2021: Patient doing really well Dr. Lubin is appreciated Supportive care Checked meds and labs 10/24/2021: Allevyn on his bottom PT and OT doing well Walked with his cam boot Bowels moving Document Dr. Lubin cardiology and he sees Dr. De La Torre Checked meds and labs 10/23/2021: Pt doing well Bowels are moving at the bedside Made some suicidal statements that weren't really suicidal Labs reviewed External monitor will require cardiology evaluation Weight-bearing as tolerated will be given because he will not do anything otherwise Review of Systems General: Fatigue, Malaise Objective Exam Vital Signs Vital Signs Date Time Temp Pulse Resp B/P (MAP) Pulse Ox O2 Delivery O2 Flow Rate FiO2 10/30/21 20:52 96 Room Air 10/30/21 20:00 36.8 69 20 137/67 (90) Capillary Refill : General Appearance: No Apparent Distress, WD/WN, Chronically ill, Obese HEENT: PERRL/EOMI, Normal ENT Inspection, Pharynx Normal Neck: Full Range of Motion, Normal Inspection, Non Tender, Supple, Carotid Bruit Respiratory: Chest Non Tender, Lungs Clear, Normal Breath Sounds, No Accessory Muscle Use, No Respiratory Distress Cardiovascular: Regular Rate, Rhythm, No Edema, No Gallop, No JVD, No Murmur, Normal Peripheral Pulses Gastrointestinal: Normal Bowel Sounds, No Organomegaly, No Pulsatile Mass, Non Tender, Soft Back: Normal Inspection, No CVA Tenderness, No Vertebral Tenderness Extremity: Normal Capillary Refill, Normal Inspection, Normal Range of Motion (Except right ankle), Non Tender, No Calf Tenderness, No Pedal Edema Neurologic/Psychiatric: Alert, Oriented x3, No Motor/Sensory Deficits, Normal Mood/Affect, account classification clerk II-XII Norm as Tested, Abnormal Gait, Motor Weakness Skin: Normal Color, Warm/Dry Lymphatic: No Adenopathy Results/Procedures Lab Laboratory Tests 10/30/21 05:40 Patient resulted labs reviewed. FIM Transfers Therapy Code Descriptions/Definitions Functional [place] Measure: 0=Not Assessed/NA 4=Minimal Assistance 1=Total Assistance 5=Supervision or Setup 2=Maximal Assistance 6=Modified [place] 3=Moderate Assistance 7=Complete IndependenceSCALE: Activities may be completed with or without assistive devices. 7-Bpafsagvgh-pemczdm completes the activity by him/herself with no assistance from a helper. 5-Set-up or Clean-up Assistance-helper sets up or cleans up; patient completes activity. [place] assists only prior to or following the activity. 4-Supervision or Touching Assistance-helper provides verbal cues and/or touching/steadying and/or contact guard assistance as patient completes activity. Assistance may be provided throughout the activity or intermittently. 3-Partial/Moderate Assistance-helper does LESS THAN HALF the effort. [place] lifts, holds or supports trunk or limbs, but provides less than half the effort. 2-Substantial/Maximal Assistance-helper does MORE THAN HALF the effort. [place] lifts or holds trunk or limbs and provides more than half the effort. 3-Uuoqngbze-pkthhl does ALL the effort. Patient does none of the effort to complete the activity. Or, the assistance of 2 or more helpers is required for the patient to complete the activity. If activity was not attempted, code reason: 7-Patient Refused. 9-Not Applicable-not attempted and the patient did not perform the activity before the current illness, exacerbation or injury. 10-Not Attempted due to Environmental Limitations-(lack of equipment, weather restraints, etc.). 88-Not Attempted due to Medical Conditions or Safety Concerns. Roll Left to Right (QC): 6 Sit to Lying (QC): 6 Sit to Stand (QC): 4 Chair/Wwn-pl-Beltn Xfer(QC): 4 Car Transfer (QC): 6 Gait Training Does the Patient Walk?: Yes Distance: 30', 60' Walk 10 feet (QC): 4 Walk 50 ft with 2 Turns(QC): 4 Walk 150 ft (QC): 4 Walking 10ft/uneven surface-QC: 88 Gait Persons Needed: 1 Gait Assistive Device: FWW Wheelchair Training Does the Pt Use a Wheelchair?: Yes Distance: 150' Wheel 50 ft with 2 turns (QC): 5 Wheel 150 ft (QC): 5 Type of Wheelchair: Manual Stair Training 1 Step (curb) (QC): 88 4 Steps (QC): 88 12 Steps (QC): 88 Balance Picking up an Object (QC): 88 ADL-Treatment Eating (QC): 5 Oral Hygiene (QC): 5 Shower/Bathe Self (QC): 4 Upper Body Dressing (QC): 4 Lower Body Dressing (QC): 3 On/Off Footwear (QC): 4 Toileting Hygiene (QC): 3 Toilet Transfer (QC): 3 Assessment/Plan Assessment and Plan Assess & Plan/Chief Complaint Assessment: 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 Hypertension Hyperlipidemia FRANK Prostate cancer history Urinary incontinence Plan: Inpatient rehab protocol Supportive care Pain control 10/23/2021: Supportive care Pain control Cardiology consult 10/24/2021: Supportive care Orthopedic consult on Wednesday10/25/2021: Orthopedic surgery consult Checked meds and labs Appreciate cardiology 10/26/21: Monitor closely 10/27/21: Supportive care Appreciated Dr Godinez 10/28/21: Non-compliant with NWB 10/29/21: More practice with knee scooter 10/30/21: Wheelchair mobility (1) History of cerebrovascular accident Assessment & Plan: He reportedly had a cerebrovascular accident in December, and had been taking aspirin and rosuvastatin since then. As above, he had another stroke during his more recent hospitalization in [place], [place]. His aspirin was changed over to clopidogrel. His rosuvastatin changed over to atorvastatin. I would recommend we continue the clopidogrel but for convenience sake, I have changed his atorvastatin back over to rosuvastatin but at a higher dose since he may have some of these tablets at home. He now has an external monitor presumably to screen for atrial fibrillation. This was ordered in [place], [place]. 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 (2) Sinus bradycardia Assessment & Plan: He was on beta-millie at home. Beta-millie was discontinued at the outside hospital due to bradycardia. (3) Primary hypertension Assessment & Plan: He is on lisinopril. Blood pressures are intermittently elevated. I did increase his dose of lisinopril. We may need to give this another week or 2 to see the final effect on his blood pressure. Avoid beta- millie due to previous bradycardia as noted above (4) Mixed hyperlipidemia Assessment & Plan: I changed his atorvastatin to rosuvastatin and increased the dose given his previous cerebrovascular accident. He was taking rosuvastatin at home. (5) Obesity Assessment & Plan: He needs to work on weight loss. VANNESA PARDO DO Oct 30, 2021 06:52
[2021-10-30 07:34] VITALS: BP 122/65
[2021-10-30] MEDS: DOCUSATE SODIUM 100 MG (COLACE) CAP PO SCH ×2 (09:11→19:42)
[2021-10-30] MEDS: polyethylene glycoL POWDER 17 GM (MIRALAX) PACK PO SCH ×2 (09:11→20:05)
[2021-10-30] MEDS: SENNA W/DOCUSATE (SENOKOT S) TABLET PO SCH ×2 (09:11→19:42)
[2021-10-30] MEDS: lisINopril 40 MG (PRINIVIL) TABLET PO SCH (09:12)
[2021-10-30] MEDS: SINEMET 25/100 (CARBIDOPA/LEVODOPA) TAB PO SCH ×3 (09:12→19:43)
[2021-10-30] MEDS: CLOPIDOGREL 75 MG (PLAVIX) TABLET PO SCH (09:12)
[2021-10-30] MEDS: PANTOPRAZOLE 20 MG TABLET (PROTONIX) PO SCH (09:12)
--- NOTE | 2021-10-30 10:05 | Occupational Ther Daily Note ---
OT Current Status-Daily Note Subjective Denies pain, agreeable to treatment. Co-treat with PT secondary to needing 2 skilled clinicians to progress indep with adls and mobility with new weight bearing restriction. Appearance Returned to sitting in recliner, all needs within reach at therapy departure. Mental Status/Objective Patient Orientation: Person, Place ADL-Treatment Therapy Code Descriptions/Definitions Functional [place] Measure: 0=Not Assessed/NA 4=Minimal Assistance 1=Total Assistance 5=Supervision or Setup 2=Maximal Assistance 6=Modified [place] 3=Moderate Assistance 7=Complete IndependenceSCALE: Activities may be completed with or without assistive devices. 6-Hzxqfkpgxs-mjqnudc completes the activity by him/herself with no assistance from a helper. 5-Set-up or Clean-up Assistance-helper sets up or cleans up; patient completes activity. [place] assists only prior to or following the activity. 4-Supervision or Touching Assistance-helper provides verbal cues and/or touching/steadying and/or contact guard assistance as patient completes act ivity. Assistance may be provided throughout the activity or intermittently. 3-Partial/Moderate Assistance-helper does LESS THAN HALF the effort. [place] lifts, holds or supports trunk or limbs, but provides less than half the effort. 2-Substantial/Maximal Assistance-helper does MORE THAN HALF the effort. [place] lifts or holds trunk or limbs and provides more than half the effort. 9-Tnehdvjff-gaegyq does ALL the effort. Patient does none of the effort to complete the activity. Or, the assistance of 2 or more helpers is required for the patient to complete the activity. If activity was not attempted, code reason: 7-Patient Refused. 9-Not Applicable-not attempted and the patient did not perform the activity before the current illness, exacerbation or injury. 10-Not Attempted due to Environmental Limitations-(lack of equipment, weather restraints, etc.). 88-Not Attempted due to Medical Conditions or Safety Concerns. Lower Body Dressing (QC): 3 On/Off Footwear: 4 Toileting Hygiene (QC): 3 Toilet Transfer (QC): 3 Incontinent of urine contained in brief. Pt able to perform oren care in sitting with set up. Dressing tasks performed seated on toilet. Pt able to thread BLE's into brief with extra effort. Short rest break needed before standing for clothing management due to fatigue.Poor carry over from sessions. Max cues and re-education on sequencing and safety during clothing management as pt continues to rest head on wall and remove BUE support. Thus causing him to break NWB on RLE and require Max a to manage up to waist. Pt is unable to sustain adherence to NWB during functional tasks/transfers. Other Treatment Pt propelled w/c in sood, difficulty maneuvering/turning chair this date. Extra cues for object avoidance. He propelled w/c x2 up/down long ramp. Intermittent min a to keep him from hitting wall as pt had tendency to drift towards right. Max cues for all stand pivot transfers this date as pt is unable to sustain NWB while pivoting. Discussion on use of knee scooter. Pt reports that he will not use at home as [place] 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 Pt declines further practice. Education OT Patient Education: Correct positioning, Modified ADL techniques, Progress toward Goal/Update tx plan, Purpose of tx/functional activities, Reviewed precautions, Rehab process, Safety issues, Transfer techniques, W/C management Teaching Recipient: Patient Teaching Methods: Demonstration, Discussion Response to Teaching: Verbalize Understanding, Reinforcement Needed OT Short Term Goals Short Term Goals Time Frame: Oct 31, 2021 Eatin Oral hygiene: 5 Toileting hygiene: 3 Shower/bathe self: 3 Upper body dressin Lower body dressin Putting on/taking off footwear: 3 (including cam boot) OT Amusement Equipment Operator Goals Snf Goals Time Frame: Nov 12, 2021 Eating (QC): 6 Oral Hygiene (QC): 6 Toileting Hygiene (QC): 5 Shower/Bathe Self (QC): 5 Upper Body Dressing (QC): 6 Lower Body Dressing (QC): 5 On/Off Footwear (QC): 5 1=Demonstrate adherence to instructed precautions during ADL tasks. 2=Patient will verbalize/demonstrate understanding of assistive devices/modifications for ADL. 3=Patient will improve strength/tolerance for activity to enable patient to perform ADL's. OT Education/Plan Problem List/Assessment Assessment: Decreased Activ Tolerance, Decreased Safety Aware, Decreased UE Strength, Impaired Cognition, Impaired Funct Balance, Impaired I ADL's, Impaired Self-Care Skills Discharge Recommendations Plan/Recommendations: Continue POC Equpiment Recommendations-D/C: Bath Chair Treatment Plan/Plan of Care Treatment,Training & Education: Yes Patient would benefit from OT for education, treatment and training to promote independence in ADL's, mobility, safety and/or upper extremity function for ADL's. Plan of Care: ADL Retraining, Functional Mobility, Group Exercise/Act as Ind, Orthotic Fitting/Training, UE Funct Exercise/Act, W/C Management Training Treatment Duration: Nov 12, 2021 Frequency: At least 5 of 7 days/Wk (IRF) Estimated Hrs Per Day: 1.5 hours per day Agreement: Yes Rehab Potential: Fair Time/GCodes Start Time: 09:00 Stop Time: 10:00 Total Time Billed (hr/min): 60 Billed Treatment Time 1 visit ADL x2 (30 min) FA x2 (30 min) Rosalee Laguna OT Oct 30, 2021 10:05
--- NOTE | 2021-10-30 10:08 | Physical Therapy Daily Note ---
PT Daily Note-Current Subjective Pt sitting in recliner upon arrival. Pt agrees to PT/OT co-treat. Pt denies pain. Pain Location: No Pain Reported Mental Status Patient Orientation: Person, Place, Situation Attachments: Other-See Comments (CAM boot for R LE) Transfers SCALE: Activities may be completed with or without assistive devices. 4-Krshgsygha-rknxpug completes the activity by him/herself with no assistance from a helper. 5-Set-up or Clean-up Assistance-helper sets up or cleans up; patient completes activity. [place] assists only prior to or following the activity. 4-Supervision or Touching Assistance-helper provides verbal cues and/or touching/steadying and/or contact guard assistance as patient completes activity. Assistance may be provided throughout the activity or intermittently. 3-Partial/Moderate Assistance-helper does LESS THAN HALF the effort. [place] lifts, holds or supports trunk or limbs, but provides less than half the effort. 2-Substantial/Maximal Assistance-helper does MORE THAN HALF the effort. [place] lifts or holds trunk or limbs and provides more than half the effort. 7-Wwiatermd-qdhhpi does ALL the effort. Patient does none of the effort to complete the activity. Or, the assistance of 2 or more helpers is required for the patient to complete the activity. If activity was not attempted, code reason: 7-Patient Refused. 9-Not Applicable-not attempted and the patient did not perform the activity before the current illness, exacerbation or injury. 10-Not Attempted due to Environmental Limitations-(lack of equipment, weather restraints, etc.). 88-Not Attempted due to Medical Conditions or Safety Concerns. Weight Bearing Right Lower Extremity: Right Non Weight Bearing Left Lower Extremity: Left Weight Bearing/Tolerated othPatient is NWB on the right leg without the CAM boot and apparently is weight bearing on the right leg with the CAM boot but is unclear how much; Clarification from PT evaluation. After gait training, nurse brought Ortho notes from [facility] to this PT and states that "CAM boot is not appropriate at this time". Therefore, patient is still NWB in the right LE until follow up with orthopedic physician. Treatments Co-treat with PT secondary to needing 2 skilled clinicians to progress indep with adls and mobility with new weight bearing restriction. Incontinent of urine contained in brief. Pt able to perform oren care in sitting with set up. Dressing tasks performed seated on toilet. Pt able to thread BLE's into brief with extra effort. Short rest break needed before standing for clothing management due to fatigue.Poor carry over from sessions. Max cues and re- education on sequencing and safety during clothing management as pt continues to rest head on wall and remove BUE support. Thus causing him to break NWB on RLE and require Max A to manage up to waist. Pt is unable to sustain adherence to NWB during functional tasks/transfers. Pt propelled w/c in sood, difficulty maneuvering/turning chair this date. Extra cues for object avoidance. He propelled w/c x2 up/down long ramp. Intermittent Min A to keep him from hitting wall as pt had tendency to drift towards right. Max cues for all stand pivot transfers this date as pt is unable to sustain NWB while pivoting. Discussion on use of knee scooter. Pt reports that he will not use at home as he does not feel it will be [place] 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 Pt declines further practice. Assessment Current Status: Fair Progress Pt has difficulty maintaining WB status, even w/constant reminders. PT Short Term Goals Short Term Goals Time Frame: Oct 29, 2021 Roll Left & Right: 6 Sit to lyin Lying to sitting on side of be: 3 Sit to stand: 4 Chair/svk-jk-dfkgx transfer: 4 Walk 10 feet: 4 PT Mcc Goals Control Equipment Electrician Goals PT Control Equipment Electrician Goals Time Frame: Nov 12, 2021 Roll Left & Right (QC): 6 Sit to Lying (QC): 6 Lying-Sitting on Side/Bed(QC): 6 Sit to Stand (QC): 4 (SBA) Chair/Qmh-ew-Ahnad Xfer(QC): 4 (SBA) Toilet Transfer (QC): 4 (SBA) Car Transfer (QC): 4 (SBA) Does the Patient Walk: Yes Walk 10 feet (QC): 4 (GA) Walk 50ft with 2 Turns (QC): 4 (CGA) Walk 150 ft (QC): 88 Walking 10ft on Uneven Surface: 4 (CGA) 1 Step (curb) (QC): 88 4 Steps (QC): 88 12 Steps (QC): 88 Picking up an Object (QC): 4 (CGA) Wheel 50 feet with 2 turns (QC: 6 Wheel 150 feet: 6 PT Plan Problem List Problem List: Functional Strength Treatment/Plan Treatment Plan: Continue Plan of Care Treatment Plan: Bed Mobility, Education, Functional Activity Nona, Functional Strength, Group Therapy, Gait, Safety, Therapeutic Exercise, Transfers Treatment Duration: Nov 12, 2021 Frequency: At least 5 of 7 days/Wk (IRF) Estimated Hrs Per Day: 1.5 hours per day Patient and/or Family Agrees t: Yes Safety Risks/Education Patient Education: Gait Training, Transfer Techniques, Correct Positioning, W/C Management, Safety Issues Teaching Recipient: Patient Teaching Methods: Discussion Response to Teaching: Verbalize Understanding, Reinforcement Needed Time/GCodes Time In: 900 Time Out: 1000 Total Billed Treatment Time: 60 Total Billed Treatment Co-treat w/OT for 60m (900-1000) 1, FA 2 (30m) & [facility] x2 (30m) AMIRAH SALAS PTA Oct 30, 2021 10:08
--- NOTE | 2021-10-30 13:32 | Occupational Ther Daily Note ---
OT Current Status-Daily Note Subjective Pt denies pain, reports first good meal since he arrived. Appearance Left sitting in recliner, all needs within reach. ADL-Treatment Therapy Code Descriptions/Definitions Functional [place] Measure: 0=Not Assessed/NA 4=Minimal Assistance 1=Total Assistance 5=Supervision or Setup 2=Maximal Assistance 6=Modified [place] 3=Moderate Assistance 7=Complete IndependenceSCALE: Activities may be completed with or without assistive devices. 5-Uxbjeamjdy-yacmqoz completes the activity by him/herself with no assistance from a helper. 5-Set-up or Clean-up Assistance-helper sets up or cleans up; patient completes activity. [place] assists only prior to or following the activity. 4-Supervision or Touching Assistance-helper provides verbal cues and/or touching/steadying and/or contact guard assistance as patient completes activity. Assistance may be provided throughout the activity or intermittently. 3-Partial/Moderate Assistance-helper does LESS THAN HALF the effort. [place] lifts, holds or supports trunk or limbs, but provides less than half the effort. 2-Substantial/Maximal Assistance-helper does MORE THAN HALF the effort. [place] lifts or holds trunk or limbs and provides more than half the effort. 2-Bghpwghok-fvdjmt does ALL the effort. Patient does none of the effort to complete the activity. Or, the assistance of 2 or more helpers is required for the patient to complete the activity. If activity was not attempted, code reason: 7-Patient Refused. 9-Not Applicable-not attempted and the patient did not perform the activity before the current illness, exacerbation or injury. 10-Not Attempted due to Environmental Limitations-(lack of equipment, weather restraints, etc.). 88-Not Attempted due to Medical Conditions or Safety Concerns. Other Treatment Pt issued medium resistance (red theraband) and HEP at previous session for B UE strengthening. Pt unable to recall or demonstrate HEP to therapist. Skilled instruction required for correct technique and how to use theraband effectively. Exercises included shldr abd/add, horizontal shldr abd/add, shldr int/ext rotation, bicep curls, and tricep ext. 2 sets 10 reps. Pt required verbal and physical cues for correct technique. Pt will need continued skilled instruction to become proficient. After therapy, pt sitting in recliner with call light/phone in reach. present in room. All needs met. Education OT Patient Education: Correct positioning, Exercise program, Home exercise program, Purpose of tx/functional activities Teaching Recipient: Patient, Family Teaching Methods: Demonstration, Discussion Response to Teaching: Verbalize Understanding, Reinforcement Needed OT Short Term Goals Short Term Goals Time Frame: Oct 31, 2021 Eatin Oral hygiene: 5 Toileting hygiene: 3 Shower/bathe self: 3 Upper body dressin Lower body dressin Putting on/taking off footwear: 3 (including cam boot) OT Assisted Goals Counseling Psychologist Goals Time Frame: Nov 12, 2021 Eating (QC): 6 Oral Hygiene (QC): 6 Toileting Hygiene (QC): 5 Shower/Bathe Self (QC): 5 Upper Body Dressing (QC): 6 Lower Body Dressing (QC): 5 On/Off Footwear (QC): 5 1=Demonstrate adherence to instructed precautions during ADL tasks. 2=Patient will verbalize/demonstrate understanding of assistive devices/modifications for ADL. 3=Patient will improve strength/tolerance for activity to enable patient to perform ADL's. OT Education/Plan Problem List/Assessment Assessment: Decreased Activ Tolerance, Decreased UE Strength Discharge Recommendations Plan/Recommendations: Continue POC Treatment Plan/Plan of Care Treatment,Training & Education: Yes Patient would benefit from OT for education, treatment and training to promote independence in ADL's, mobility, safety and/or upper extremity function for ADL's. Plan of Care: ADL Retraining, Functional Mobility, Group Exercise/Act as Ind, Orthotic Fitting/Training, UE Funct Exercise/Act, W/C Management Training Treatment Duration: Nov 12, 2021 Frequency: At least 5 of 7 days/Wk (IRF) Estimated Hrs Per Day: 1.5 hours per day Agreement: Yes Rehab Potential: Fair Time/GCodes Start Time: 13:00 Stop Time: 13:30 Total Time Billed (hr/min): 30 Billed Treatment Time 1 visit EX chantelle KimRosalee carroll OT Oct 30, 2021 13:31
--- NOTE | 2021-10-30 15:47 | Physical Therapy Daily Note ---
PT Daily Note-Current Subjective Pt sitting in recliner visiting with SP upon arrival. Pt agrees to PT. Pain Location: No Pain Reported Mental Status Patient Orientation: Person, Place Attachments: Other-See Comments (CAM boot for R LE) Transfers SCALE: Activities may be completed with or without assistive devices. 6-Tvrnoekqkh-ckymagv completes the activity by him/herself with no assistance from a helper. 5-Set-up or Clean-up Assistance-helper sets up or cleans up; patient completes activity. [place] assists only prior to or following the activity. 4-Supervision or Touching Assistance-helper provides verbal cues and/or touching/steadying and/or contact guard assistance as patient completes activity. Assistance may be provided throughout the activity or intermittently. 3-Partial/Moderate Assistance-helper does LESS THAN HALF the effort. [place] lifts, holds or supports trunk or limbs, but provides less than half the effort. 2-Substantial/Maximal Assistance-helper does MORE THAN HALF the effort. [place] lifts or holds trunk or limbs and provides more than half the effort. 1-Zuehluztn-xvledk does ALL the effort. Patient does none of the effort to complete the activity. Or, the assistance of 2 or more helpers is required for the patient to complete the activity. If activity was not attempted, code reason: 7-Patient Refused. 9-Not Applicable-not attempted and the patient did not perform the activity before the current illness, exacerbation or injury. 10-Not Attempted due to Environmental Limitations-(lack of equipment, weather restraints, etc.). 88-Not Attempted due to Medical Conditions or Safety Concerns. Weight Bearing Right Lower Extremity: Right Non Weight Bearing Left Lower Extremity: Left Weight Bearing/Tolerated othPatient is NWB on the right leg without the CAM boot and apparently is weight bearing on the right leg with the CAM boot but is unclear how much; Clarification from PT evaluation. After gait training, nurse brought Ortho notes from [facility] to this PT and states that "CAM boot is not appropriate at this time". Therefore, patient is still NWB in the right LE until follow up with orthopedic physician. Treatments Pt and Sp had questions on how AE would arrive for pt and what is needed knee scooter vs WCH & whether a BSC is needed. HOTEL SERVICES SUPERVISOR discussed how the next few days of Therapy would progress and confirmed with SW on AE. SW will visit further with pt & Sp to discuss d/c questions. HOTEL SERVICES SUPERVISOR again reminds keeping WB status and how is needed even more since pt does not want to use knee scooter just WCH & FWW. Pt resting in recliner at end of tx with all needs met, call light in hand. Assessment Current Status: Fair Progress Pt does not maintain WB status well. PT Short Term Goals Short Term Goals Time Frame: Oct 29, 2021 Roll Left & Right: 6 Sit to lyin Lying to sitting on side of be: 3 Sit to stand: 4 Chair/bbu-ro-gyhta transfer: 4 Walk 10 feet: 4 PT Canvas Marker Goals Detention Goals PT Canvas Marker Goals Time Frame: Nov 12, 2021 Roll Left & Right (QC): 6 Sit to Lying (QC): 6 Lying-Sitting on Side/Bed(QC): 6 Sit to Stand (QC): 4 (SBA) Chair/Ywt-tw-Rknwh Xfer(QC): 4 (SBA) Toilet Transfer (QC): 4 (SBA) Car Transfer (QC): 4 (SBA) Does the Patient Walk: Yes Walk 10 feet (QC): 4 (GA) Walk 50ft with 2 Turns (QC): 4 (CGA) Walk 150 ft (QC): 88 Walking 10ft on Uneven Surface: 4 (CGA) 1 Step (curb) (QC): 88 4 Steps (QC): 88 12 Steps (QC): 88 Picking up an Object (QC): 4 (CGA) Wheel 50 feet with 2 turns (QC: 6 Wheel 150 feet: 6 PT Plan Problem List Problem List: Activity Tolerance, Functional Strength, Gait Treatment/Plan Treatment Plan: Continue Plan of Care Treatment Plan: Bed Mobility, Education, Functional Activity Nona, Functional Strength, Group Therapy, Gait, Safety, Therapeutic Exercise, Transfers Treatment Duration: Nov 12, 2021 Frequency: At least 5 of 7 days/Wk (IRF) Estimated Hrs Per Day: 1.5 hours per day Patient and/or Family Agrees t: Yes Safety Risks/Education Patient Education: Gait Training, Transfer Techniques, Correct Positioning, Safety Issues Teaching Recipient: Patient Teaching Methods: Discussion Response to Teaching: Reinforcement Needed Time/GCodes Time In: 1330 Time Out: 1400 Total Billed Treatment Time: 30 Total Billed Treatment 1, FA x2 (30m) AMIRAH SALAS HOTEL SERVICES SUPERVISOR Oct 30, 2021 15:47
[2021-10-30] MEDS: ROSUVASTATIN 10 MG (CRESTOR) TABLET PO SCH (19:42)
[2021-10-30 20:00] VITALS: BP 137/67
[2021-10-30] MEDS: ACETAMINOPHEN 325 MG TABLET PO PRN (22:14)
--- NOTE | 2021-10-31 07:20 | PM&R Progress Note ---
Subjective HPI/CC On Admission Date Seen by Provider: Oct 31, 2021 Time Seen by Provider: 12:00 Subjective/Events-last exam 10/31/21: Pt is transferring from the wheelchair to the bed doing very well Less impulsive Checked meds and labs No falls 10/30/21: Pt doing really well Incision looks good Wheelchair at home will be able to navigate better with that Non-weight bearing is still a challenge 10/29/21: BM are regular Dressing changed tomorrow, they are changed every other day Works the [employer] System[employer] really well Trying to minimally bear weight 10/28/21: Pt is doing a lot better Non weight bearing for 6 weeks was reiterated by Dr. Wilson but doubt he will maintain No pain was reported otherwise Getting himself shaved Checked meds and labs 10/27/21: Pt doing really well. Orthopedic Surgery will be consulted. Social Work consult too IS used Checked meds and labs Declines any additional lab work to be drawn. 10/26/21: Patient doing well Requests bedpan Cam boot in place 10/25/2021: Patient doing really well Dr. Lubin is appreciated Supportive care Checked meds and labs 10/24/2021: Allevyn on his bottom PT and OT doing well Walked with his cam boot Bowels moving Document Dr. Lubin cardiology and he sees Dr. De La Torre Checked meds and labs 10/23/2021: Pt doing well Bowels are moving at the bedside Made some suicidal statements that weren't really suicidal Labs reviewed External monitor will require cardiology evaluation Weight-bearing as tolerated will be given because he will not do anything otherwise Review of Systems General: Fatigue, Malaise Objective Exam Vital Signs Vital Signs Date Time Temp Pulse Resp B/P (MAP) Pulse Ox O2 Delivery O2 Flow Rate FiO2 10/31/21 21:00 96 Room Air 10/31/21 19:47 36.8 70 20 146/77 (100) Capillary Refill : General Appearance: No Apparent Distress, WD/WN, Chronically ill, Obese HEENT: PERRL/EOMI, Normal ENT Inspection, Pharynx Normal Neck: Full Range of Motion, Normal Inspection, Non Tender, Supple, Carotid Bruit Respiratory: Chest Non Tender, Lungs Clear, Normal Breath Sounds, No Accessory Muscle Use, No Respiratory Distress Cardiovascular: Regular Rate, Rhythm, No Edema, No Gallop, No JVD, No Murmur, Normal Peripheral Pulses Gastrointestinal: Normal Bowel Sounds, No Organomegaly, No Pulsatile Mass, Non Tender, Soft Back: Normal Inspection, No CVA Tenderness, No Vertebral Tenderness Extremity: Normal Capillary Refill, Normal Inspection, Normal Range of Motion (Except right ankle), Non Tender, No Calf Tenderness, No Pedal Edema Neurologic/Psychiatric: Alert, Oriented x3, No Motor/Sensory Deficits, Normal Mood/Affect, tape duplicator II-XII Norm as Tested, Abnormal Gait, Motor Weakness Skin: Normal Color, Warm/Dry Lymphatic: No Adenopathy Results/Procedures Lab Patient resulted labs reviewed. FIM Transfers Therapy Code Descriptions/Definitions Functional [place] Measure: 0=Not Assessed/NA 4=Minimal Assistance 1=Total Assistance 5=Supervision or Setup 2=Maximal Assistance 6=Modified [place] 3=Moderate Assistance 7=Complete IndependenceSCALE: Activities may be completed with or without assistive devices. 8-Popfbsjjuf-agtiyol completes the activity by him/herself with no assistance from a helper. 5-Set-up or Clean-up Assistance-helper sets up or cleans up; patient completes activity. [place] assists only prior to or following the activity. 4-Supervision or Touching Assistance-helper provides verbal cues and/or touching/steadying and/or contact guard assistance as patient completes activity. Assistance may be provided throughout the activity or intermittently. 3-Partial/Moderate Assistance-helper does LESS THAN HALF the effort. [place] lifts, holds or supports trunk or limbs, but provides less than half the effort. 2-Substantial/Maximal Assistance-helper does MORE THAN HALF the effort. [place] lifts or holds trunk or limbs and provides more than half the effort. 7-Kdnvbxndz-agvktf does ALL the effort. Patient does none of the effort to complete the activity. Or, the assistance of 2 or more helpers is required for the patient to complete the activity. If activity was not attempted, code reason: 7-Patient Refused. 9-Not Applicable-not attempted and the patient did not perform the activity before the current illness, exacerbation or injury. 10-Not Attempted due to Environmental Limitations-(lack of equipment, weather restraints, etc.). 88-Not Attempted due to Medical Conditions or Safety Concerns. Roll Left to Right (QC): 6 Sit to Lying (QC): 6 Sit to Stand (QC): 4 Chair/Hib-nd-Bugqz Xfer(QC): 4 Car Transfer (QC): 6 Gait Training Does the Patient Walk?: Yes Distance: 30', 60' Walk 10 feet (QC): 4 Walk 50 ft with 2 Turns(QC): 4 Walk 150 ft (QC): 4 Walking 10ft/uneven surface-QC: 88 Gait Persons Needed: 1 Gait Assistive Device: FWW Wheelchair Training Does the Pt Use a Wheelchair?: Yes Distance: 150' Wheel 50 ft with 2 turns (QC): 5 Wheel 150 ft (QC): 5 Type of Wheelchair: Manual Stair Training 1 Step (curb) (QC): 88 4 Steps (QC): 88 12 Steps (QC): 88 Balance Picking up an Object (QC): 88 ADL-Treatment Eating (QC): 5 Oral Hygiene (QC): 5 Shower/Bathe Self (QC): 4 Upper Body Dressing (QC): 4 Lower Body Dressing (QC): 3 On/Off Footwear (QC): 4 Toileting Hygiene (QC): 3 Toilet Transfer (QC): 3 Assessment/Plan Assessment and Plan Assess & Plan/Chief Complaint Assessment: 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 Hypertension Hyperlipidemia FRANK Prostate cancer history Urinary incontinence Plan: Inpatient rehab protocol Supportive care Pain control 10/23/2021: Supportive care Pain control Cardiology consult 10/24/2021: Supportive care Orthopedic consult on Wednesday10/25/2021: Orthopedic surgery consult Checked meds and labs Appreciate cardiology 10/26/21: Monitor closely 10/27/21: Supportive care Appreciated Dr Godinez 10/28/21: Non-compliant with NWB 10/29/21: More practice with knee scooter 10/30/21: Wheelchair mobility 10/31/21: Monitor closely (1) History of cerebrovascular accident Assessment & Plan: He reportedly had a cerebrovascular accident in December, and had been taking aspirin and rosuvastatin since then. As above, he had another stroke during his more recent hospitalization in [place], [place]. His aspirin was changed over to clopidogrel. His rosuvastatin changed over to atorvastatin. I would recommend we continue the clopidogrel but for convenience sake, I have changed his atorvastatin back over to rosuvastatin but at a higher dose since he may have some of these tablets at home. He now has an external monitor presumably to screen for atrial fibrillation. This was ordered in [place], [place]. 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 (2) Sinus bradycardia Assessment & Plan: He was on beta-millie at home. Beta-millie was discontinued at the outside hospital due to bradycardia. (3) Primary hypertension Assessment & Plan: He is on lisinopril. Blood pressures are intermittently elevated. I did increase his dose of lisinopril. We may need to give this another week or 2 to see the final effect on his blood pressure. Avoid beta- millie due to previous bradycardia as noted above (4) Mixed hyperlipidemia Assessment & Plan: I changed his atorvastatin to rosuvastatin and increased the dose given his previous cerebrovascular accident. He was taking rosuvastatin at home. (5) Obesity Assessment & Plan: He needs to work on weight loss. VANNESA PARDO DO Oct 31, 2021 07:20
[2021-10-31 07:26] VITALS: BP 146/75
[2021-10-31] MEDS: polyethylene glycoL POWDER 17 GM (MIRALAX) PACK PO SCH ×2 (08:17→20:03)
[2021-10-31] MEDS: lisINopril 40 MG (PRINIVIL) TABLET PO SCH (08:17)
[2021-10-31] MEDS: SENNA W/DOCUSATE (SENOKOT S) TABLET PO SCH ×2 (08:17→20:03)
[2021-10-31] MEDS: SINEMET 25/100 (CARBIDOPA/LEVODOPA) TAB PO SCH ×3 (08:17→20:03)
[2021-10-31] MEDS: CLOPIDOGREL 75 MG (PLAVIX) TABLET PO SCH (08:17)
[2021-10-31] MEDS: PANTOPRAZOLE 20 MG TABLET (PROTONIX) PO SCH (08:17)
[2021-10-31] MEDS: DOCUSATE SODIUM 100 MG (COLACE) CAP PO SCH ×2 (08:17→20:03)
--- NOTE | 2021-10-31 10:58 | Occupational Ther Daily Note ---
OT Current Status-Daily Note Subjective Pt reports knee pain in L knee. Agreeable to treatment. Co-treat with PT for part of session ([id number]) secondary to needing 2 skilled clinicians to progress indep with adls and mobility with new weight bearing restriction. Appearance Left sitting in w/c with PT and present. ADL-Treatment Therapy Code Descriptions/Definitions Functional [place] Measure: 0=Not Assessed/NA 4=Minimal Assistance 1=Total Assistance 5=Supervision or Setup 2=Maximal Assistance 6=Modified [place] 3=Moderate Assistance 7=Complete IndependenceSCALE: Activities may be completed with or without assistive devices. 9-Kxvnyfxrxn-acdiqmo completes the activity by him/herself with no assistance from a helper. 5-Set-up or Clean-up Assistance-helper sets up or cleans up; patient completes activity. [place] assists only prior to or following the activity. 4-Supervision or Touching Assistance-helper provides verbal cues and/or touching/steadying and/or contact guard assistance as patient completes activity. Assistance may be provided throughout the activity or intermittently. 3-Partial/Moderate Assistance-helper does LESS THAN HALF the effort. [place] lifts, holds or supports trunk or limbs, but provides less than half the effort. 2-Substantial/Maximal Assistance-helper does MORE THAN HALF the effort. [place] lifts or holds trunk or limbs and provides more than half the effort. 6-Kwlcqwohb-swkvlt does ALL the effort. Patient does none of the effort to complete the activity. Or, the assistance of 2 or more helpers is required for the patient to complete the activity. If activity was not attempted, code reason: 7-Patient Refused. 9-Not Applicable-not attempted and the patient did not perform the activity before the current illness, exacerbation or injury. 10-Not Attempted due to Environmental Limitations-(lack of equipment, weather restraints, etc.). 88-Not Attempted due to Medical Conditions or Safety Concerns. Upper Body Dressing (QC): 4 Lower Body Dressing (QC): 3 On/Off Footwear: 3 Toileting Hygiene (QC): 3 Toilet Transfer (QC): 3 Dressing tasks performed seated in chair. Pt able to thread BLE's into brief with extra effort. Short rest break needed before standing for clothing management due to fatigue.Poor carry over from sessions as pt continues to need Max cues and re-education on sequencing and safety during clothing management. Pt continues to rest head on wall (post toileting) and remove BUE support when managing clothing. Thus causing him to break NWB on RLE and require Max a to manage up to waist. Pt is unable to sustain adherence to NWB during functional tasks/transfers. OT demonstrated and educated on cover/care of RLE for bathing task. to complete on Wednesday prior to shower. Lengthy conversation on set up of bathroom and purchase of shower chair. Pt exhibits very poor insight, continue to not see issue of standing in the shower. OT anticipates pt will be non compliant post discharge. Other Treatment Pt participated in several standing activities with emphasis on promoting increased standing tolerance, LLE strength, dynamic standing balance, and UE functional reaching for adls and transfers. Heavy reliance on resting trunk on mat, cues for upright posture. Pt continues to have increased unsteadiness when removing RUE vs LUE. Education to on performing as much of clothing management with LUE first before adjusting with RUE. Pt fatigues easily with activities and requires several seated rest breaks. With PT present, pt completed multiple stand pivot transfers. Consistent cues on NWB and proper sequencing/technique. Increased difficulty due to weight and heel height of boot. In parallel bars, pt stood and performed static standing pivots on LLE with small step placed under foot so he can identify what full NWB feels like. Education OT Patient Education: Correct positioning, Energy conservation, Modified ADL techniques, Progress toward Goal/Update tx plan, Purpose of tx/functional activities, Reviewed precautions, Rehab process, Safety issues, Transfer techniques, W/C management Teaching Recipient: Patient, Family Teaching Methods: Demonstration, Discussion Response to Teaching: Verbalize Understanding, Return Demonstration, Reinforcement Needed OT Short Term Goals Short Term Goals Time Frame: Oct 31, 2021 Eatin Oral hygiene: 5 Toileting hygiene: 3 Shower/bathe self: 3 Upper body dressin Lower body dressin Putting on/taking off footwear: 3 (including cam boot) OT Pipe Liner Goals Intermediate Goals Time Frame: Nov 12, 2021 Eating (QC): 6 Oral Hygiene (QC): 6 Toileting Hygiene (QC): 5 Shower/Bathe Self (QC): 5 Upper Body Dressing (QC): 6 Lower Body Dressing (QC): 5 On/Off Footwear (QC): 5 1=Demonstrate adherence to instructed precautions during ADL tasks. 2=Patient will verbalize/demonstrate understanding of assistive devices/modifications for ADL. 3=Patient will improve strength/tolerance for activity to enable patient to perform ADL's. OT Education/Plan Problem List/Assessment Assessment: Decreased Activ Tolerance, Decreased Safety Aware, Decreased UE Strength, Impaired Cognition, Impaired Funct Balance, Impaired I ADL's, Impaired Self-Care Skills Discharge Recommendations Plan/Recommendations: Continue POC Equpiment Recommendations-D/C: Bath Chair Treatment Plan/Plan of Care Treatment,Training & Education: Yes Patient would benefit from OT for education, treatment and training to promote independence in ADL's, mobility, safety and/or upper extremity function for ADL's. Plan of Care: ADL Retraining, Functional Mobility, Group Exercise/Act as Ind, Orthotic Fitting/Training, UE Funct Exercise/Act, W/C Management Training Treatment Duration: Nov 12, 2021 Frequency: At least 5 of 7 days/Wk (IRF) Estimated Hrs Per Day: 1.5 hours per day Agreement: Yes Rehab Potential: Fair Time/GCodes Start Time: 09:00 Stop Time: 10:30 Total Time Billed (hr/min): 90 Billed Treatment Time 1 visit ADL x3 (45 min) FA x3 (45 min) Rosalee Laguna OT Oct 31, 2021 10:58
--- NOTE | 2021-10-31 10:59 | Physical Therapy Daily Note ---
PT Daily Note-Current Subjective Pt. and OT present. Pt. with changed WBing status since last seen by this PLANNER CHIEF, now NWBing left at all times. expresses concern for whether or not pt. can maintain this. States she is pursuing a shoe for left foot (opposite foot) with higher sole/heel to try to match boot. This PLANNER CHIEF shares that it may help some but not sure. Pt expresses frustration at the situation today Pain Location: No Pain Reported Mental Status Patient Orientation: Person, Place Attachments: Other-See Comments (cam boot right) Transfers SCALE: Activities may be completed with or without assistive devices. 8-Jlfwzrmjmn-xxmkoja completes the activity by him/herself with no assistance from a helper. 5-Set-up or Clean-up Assistance-helper sets up or cleans up; patient completes activity. [place] assists only prior to or following the activity. 4-Supervision or Touching Assistance-helper provides verbal cues and/or touching/steadying and/or contact guard assistance as patient completes activity. Assistance may be provided throughout the activity or intermittently. 3-Partial/Moderate Assistance-helper does LESS THAN HALF the effort. [place] lifts, holds or supports trunk or limbs, but provides less than half the effort. 2-Substantial/Maximal Assistance-helper does MORE THAN HALF the effort. [place] lifts or holds trunk or limbs and provides more than half the effort. 3-Xakmmawyp-hioseu does ALL the effort. Patient does none of the effort to complete the activity. Or, the assistance of 2 or more helpers is required for the patient to complete the activity. If activity was not attempted, code reason: 7-Patient Refused. 9-Not Applicable-not attempted and the patient did not perform the activity before the current illness, exacerbation or injury. 10-Not Attempted due to Environmental Limitations-(lack of equipment, weather restraints, etc.). 88-Not Attempted due to Medical Conditions or Safety Concerns. Roll Left & Right (QC): 6 Sit to Lying (QC): 4 Lying to Sitting/Side of Bed(Q: 5 Sit to Stand (QC): 5 Chair/Mpa-oc-Rtpxu Xfer(QC): 4 Toilet Transfer (QC): 4 much work on TRFs w/c to bed to w/c to chair using higher surfaces to help alleviate wt bearing during TRF but pt. still does . TRFs sit to sup require min assist LEs, TRF wc to toilet 90 deg angle using rails min assist and still pt wt bearing. Weight Bearing Right Lower Extremity: Right Non Weight Bearing Left Lower Extremity: Left Weight Bearing/Tolerated othPatient is NWB on the right leg without the CAM boot and apparently is weight bearing on the right leg with the CAM boot but is unclear how much; Clarification from PT evaluation. After gait training, nurse brought Ortho notes from [facility] to this PT and states that "CAM boot is not appropriate at this time". Therefore, patient is still NWB in the right LE until follow up with orthopedic physician. Gait Training no walking past 3-4 steps during SPTs as pt. is not maintaining NWB status. Wheelchair Training Does the Pt Use a Wheelchair?: Yes Wheel 50 ft with 2 turns (QC): 5 Wheel 150 ft (QC): 5 Type of Wheelchair: Manual pt. demonstrates approach with w/c for trfs as well as ZTR turns and backing, brakes indep, fatigues quickly with longer w/c mob ie past 100 ft. will negotiate ramp this pm Exercises Supine Ex: Ankle pumps, Heel Slides, Hip abd/add Supine Reps: 10 Seated Therapy Exercises: Sit to stand Seated Reps: 6 Treatments co Rx with OT for sit to stands, attempts at // bars to instruct pt in unweighting RLE while LLE was elevated on 2 in item on floor to try to help pt. realize sensation of NWBing rigt in stance, pt.did stand and swing RLE, but wt bears again with TRF to sit. 2 skilled clinicians attempted to pursue any way possible to reduce wt bearing on RLE , present for educatio as well. Many SPTs w/c to chair and w/c to toilet . Assessment Current Status: Fair Progress pt. having great difficulty maintaining or ever achieving NWB RLE therefore fu rther gait and mobility on feet not attempted PT Short Term Goals Short Term Goals Time Frame: Oct 29, 2021 Roll Left & Right: 6 Sit to lyin Lying to sitting on side of be: 3 Sit to stand: 4 Chair/alm-mp-ifzsu transfer: 4 Walk 10 feet: 4 PT Mcfp Goals Assistant Manager Trainee Goals PT Assistant Manager Trainee Goals Time Frame: Nov 12, 2021 Roll Left & Right (QC): 6 Sit to Lying (QC): 6 Lying-Sitting on Side/Bed(QC): 6 Sit to Stand (QC): 4 (SBA) Chair/Giq-if-Ddqoj Xfer(QC): 4 (SBA) Toilet Transfer (QC): 4 (SBA) Car Transfer (QC): 4 (SBA) Does the Patient Walk: Yes Walk 10 feet (QC): 4 (GA) Walk 50ft with 2 Turns (QC): 4 (CGA) Walk 150 ft (QC): 88 Walking 10ft on Uneven Surface: 4 (CGA) 1 Step (curb) (QC): 88 4 Steps (QC): 88 12 Steps (QC): 88 Picking up an Object (QC): 4 (CGA) Wheel 50 feet with 2 turns (QC: 6 Wheel 150 feet: 6 PT Plan Treatment/Plan Treatment Plan: Continue Plan of Care Treatment Plan: Bed Mobility, Education, Functional Activity Nona, Functional Strength, Group Therapy, Gait, Safety, Therapeutic Exercise, Transfers Treatment Duration: Nov 12, 2021 Frequency: At least 5 of 7 days/Wk (IRF) Estimated Hrs Per Day: 1.5 hours per day Patient and/or Family Agrees t: Yes Safety Risks/Education Patient Education: Transfer Techniques, Reviewed Precautions, Correct Positioning, W/C Management, Instructions to Caregiver, Safety Issues Teaching Recipient: Patient Teaching Methods: Demonstration, Discussion Response to Teaching: Unable to Return Demonstration, Reinforcement Needed Time/GCodes Time In: 1005 Time Out: 1100 Total Billed Treatment Time: 55 Total Billed Treatment 1,FA30m,WC15m,ex10m GAYLE RASHID PLANNER CHIEF Oct 31, 2021 10:59
--- NOTE | 2021-10-31 13:25 | Physical Therapy Daily Note ---
PT Daily Note-Current Subjective Pt. and present in room. Pt. states he hasnt quite figured out how to use the lift recline chair yet. Pt. and both agree to w/c mob on ramp and TRFs Pain Location: No Pain Reported Mental Status Attachments: Other-See Comments (CAM boot right) Transfers SCALE: Activities may be completed with or without assistive devices. 8-Ctlhkprenp-vrkmynu completes the activity by him/herself with no assistance from a helper. 5-Set-up or Clean-up Assistance-helper sets up or cleans up; patient completes activity. [place] assists only prior to or following the activity. 4-Supervision or Touching Assistance-helper provides verbal cues and/or touching/steadying and/or contact guard assistance as patient completes activity. Assistance may be provided throughout the activity or intermittently. 3-Partial/Moderate Assistance-helper does LESS THAN HALF the effort. [place] lifts, holds or supports trunk or limbs, but provides less than half the effort. 2-Substantial/Maximal Assistance-helper does MORE THAN HALF the effort. [place] lifts or holds trunk or limbs and provides more than half the effort. 5-Qvgmidihr-jrtlol does ALL the effort. Patient does none of the effort to complete the activity. Or, the assistance of 2 or more helpers is required for the patient to complete the activity. If activity was not attempted, code reason: 7-Patient Refused. 9-Not Applicable-not attempted and the patient did not perform the activity before the current illness, exacerbation or injury. 10-Not Attempted due to Environmental Limitations-(lack of equipment, weather restraints, etc.). 88-Not Attempted due to Medical Conditions or Safety Concerns. sit to stand and SPTs for from w/c and lift recline chair. This MEDICAL STENOGRAPHER in hopes lift recline chair height might decrease the amount of wt pt bears during sit to stand Weight Bearing Right Lower Extremity: Right Non Weight Bearing Left Lower Extremity: Left Weight Bearing/Tolerated othPatient is NWB on the right leg without the CAM boot and apparently is weight bearing on the right leg with the CAM boot but is unclear how much; Clarification from PT evaluation. After gait training, nurse brought Ortho notes from [facility] to this PT and states that "CAM boot is not appropriate at this time". Therefore, patient is still NWB in the right LE until follow up with orthopedic physician. Wheelchair Training Does the Pt Use a Wheelchair?: Yes Wheel 50 ft with 2 turns (QC): 5 Wheel 150 ft (QC): 5 Type of Wheelchair: Manual pt. managed w/c up down approx 25-30 ft gentle ramp with good control. pt using UEs and left LE to control chair speed and propel. pt. also practiced ascending ramp going backwards using floor markings for guide, all done with verbal cuing only Treatments as above as well as max assist to steven doff boot and shoe , further instruction in use of lift recline chair for comfort and positioning etc Assessment Current Status: Good Progress pt. continues to wt bear on RLE, thus he has been restricted to w/c for mobility and hoping TRFs will improve, seat heights raised to help with this , pt. also has some cognitive issues impeding is ability comply in this PTAs observance PT Short Term Goals Short Term Goals Time Frame: Oct 29, 2021 Roll Left & Right: 6 Sit to lyin Lying to sitting on side of be: 3 Sit to stand: 4 Chair/vjr-bs-aprla transfer: 4 Walk 10 feet: 4 PT Nursing Home Goals Nursing Home Goals PT Nursing Home Goals Time Frame: Nov 12, 2021 Roll Left & Right (QC): 6 Sit to Lying (QC): 6 Lying-Sitting on Side/Bed(QC): 6 Sit to Stand (QC): 4 (SBA) Chair/Fev-ho-Iywsc Xfer(QC): 4 (SBA) Toilet Transfer (QC): 4 (SBA) Car Transfer (QC): 4 (SBA) Does the Patient Walk: Yes Walk 10 feet (QC): 4 (GA) Walk 50ft with 2 Turns (QC): 4 (CGA) Walk 150 ft (QC): 88 Walking 10ft on Uneven Surface: 4 (CGA) 1 Step (curb) (QC): 88 4 Steps (QC): 88 12 Steps (QC): 88 Picking up an Object (QC): 4 (CGA) Wheel 50 feet with 2 turns (QC: 6 Wheel 150 feet: 6 PT Plan Treatment/Plan Treatment Plan: Continue Plan of Care Treatment Plan: Bed Mobility, Education, Functional Activity Nona, Functional Strength, Group Therapy, Gait, Safety, Therapeutic Exercise, Transfers Treatment Duration: Nov 12, 2021 Frequency: At least 5 of 7 days/Wk (IRF) Estimated Hrs Per Day: 1.5 hours per day Patient and/or Family Agrees t: Yes Safety Risks/Education Patient Education: Transfer Techniques, Reviewed Precautions, Correct Positioning, W/C Management, Instructions to Caregiver Teaching Recipient: Patient Teaching Methods: Demonstration, Discussion Response to Teaching: Unable to Return Demonstration, Unable to Comprehend, Reinforcement Needed Time/GCodes Time In: 1245 Time Out: 1320 Total Billed Treatment Time: 35 Total Billed Treatment 1,FA15,WC20 GAYLE RASHID MEDICAL STENOGRAPHER Oct 31, 2021 13:25
[2021-10-31] MEDS ORDERED: DOCU100C37 PO (15:24)
[2021-10-31] MEDS ORDERED: ASPI-1238 PO (15:24)
[2021-10-31] MEDS ORDERED: RT-ALBUINH INH (15:24)
[2021-10-31] MEDS ORDERED: CARV3.122 PO (15:24)
[2021-10-31] MEDS ORDERED: ROSU5TAB13 PO (15:24)
[2021-10-31 19:47] VITALS: BP 146/77
[2021-10-31] MEDS: ROSUVASTATIN 10 MG (CRESTOR) TABLET PO SCH (20:03)
[2021-11-01] MEDS: ACETAMINOPHEN 325 MG TABLET PO PRN ×2 (00:39→22:59)
[2021-11-01 08:27] VITALS: BP 147/70
[2021-11-01] MEDS: CLOPIDOGREL 75 MG (PLAVIX) TABLET PO SCH (08:30)
[2021-11-01] MEDS: SENNA W/DOCUSATE (SENOKOT S) TABLET PO SCH ×2 (08:30→20:13)
[2021-11-01] MEDS: SINEMET 25/100 (CARBIDOPA/LEVODOPA) TAB PO SCH ×3 (08:30→20:13)
[2021-11-01] MEDS: PANTOPRAZOLE 20 MG TABLET (PROTONIX) PO SCH (08:30)
[2021-11-01] MEDS: lisINopril 40 MG (PRINIVIL) TABLET PO SCH (08:30)
[2021-11-01] MEDS: DOCUSATE SODIUM 100 MG (COLACE) CAP PO SCH ×2 (08:30→20:13)
--- NOTE | 2021-11-01 09:46 | PM&R Progress Note ---
Subjective HPI/CC On Admission Date Seen by Provider: Nov 01, 2021 Time Seen by Provider: 13:30 Subjective/Events-last exam 11/11/2021: Patient doing really well Bowels moved yesterday Stitches came out yesterday Incontinent pad last night Check meds labs 10/31/21: Pt is transferring from the wheelchair to the bed doing very well Less impulsive Checked meds and labs No falls 10/30/21: Pt doing really well Incision looks good Wheelchair at home will be able to navigate better with that Non-weight bearing is still a challenge 10/29/21: BM are regular Dressing changed tomorrow, they are changed every other day Works the knee scooter really well Trying to minimally bear weight 10/28/21: Pt is doing a lot better Non weight bearing for 6 weeks was reiterated by Dr. Wilson but doubt he will maintain No pain was reported otherwise Getting himself shaved Checked meds and labs 10/27/21: Pt doing really well. Orthopedic Surgery will be consulted. Social Work consult too IS used Checked meds and labs Declines any additional lab work to be drawn. 10/26/21: Patient doing well Requests bedpan Cam boot in place 10/25/2021: Patient doing really well Dr. Lubin is appreciated Supportive care Checked meds and labs 10/24/2021: Allevyn on his bottom PT and OT doing well Walked with his cam boot Bowels moving Document Dr. Lubin cardiology and he sees Dr. De La Torre Checked meds and labs 10/23/2021: Pt doing well Bowels are moving at the bedside Made some suicidal statements that weren't really suicidal Labs reviewed External monitor will require cardiology evaluation Weight-bearing as tolerated will be given because he will not do anything otherwise Review of Systems General: Fatigue, Malaise Musculoskeletal: leg pain Objective Exam Vital Signs Vital Signs Date Time Temp Pulse Resp B/P (MAP) Pulse Ox O2 Delivery O2 Flow Rate FiO2 11/01/21 09:59 Room Air 11/01/21 08:27 37.0 78 16 147/70 (95) 99 Capillary Refill : General Appearance: No Apparent Distress, WD/WN, Chronically ill, Obese HEENT: PERRL/EOMI, Normal ENT Inspection, Pharynx Normal Neck: Full Range of Motion, Normal Inspection, Non Tender, Supple, Carotid Bruit Respiratory: Chest Non Tender, Lungs Clear, Normal Breath Sounds, No Accessory Muscle Use, No Respiratory Distress Cardiovascular: Regular Rate, Rhythm, No Edema, No Gallop, No JVD, No Murmur, Normal Peripheral Pulses Gastrointestinal: Normal Bowel Sounds, No Organomegaly, No Pulsatile Mass, Non Tender, Soft Back: Normal Inspection, No CVA Tenderness, No Vertebral Tenderness Extremity: Normal Capillary Refill, Normal Inspection, Normal Range of Motion (Except right ankle), Non Tender, No Calf Tenderness, No Pedal Edema Neurologic/Psychiatric: Alert, Oriented x3, No Motor/Sensory Deficits, Normal Mood/Affect, cracker off II-XII Norm as Tested, Abnormal Gait, Motor Weakness Skin: Normal Color, Warm/Dry Lymphatic: No Adenopathy Results/Procedures Lab Patient resulted labs reviewed. FIM Transfers Therapy Code Descriptions/Definitions Functional [place] Measure: 0=Not Assessed/NA 4=Minimal Assistance 1=Total Assistance 5=Supervision or Setup 2=Maximal Assistance 6=Modified [place] 3=Moderate Assistance 7=Complete IndependenceSCALE: Activities may be completed with or without assistive devices. 7-Jdbznsubmg-lpzqggg completes the activity by him/herself with no assistance from a helper. 5-Set-up or Clean-up Assistance-helper sets up or cleans up; patient completes activity. [place] assists only prior to or following the activity. 4-Supervision or Touching Assistance-helper provides verbal cues and/or touching/steadying and/or contact guard assistance as patient completes activity. Assistance may be provided throughout the activity or intermittently. 3-Partial/Moderate Assistance-helper does LESS THAN HALF the effort. [place] lifts, holds or supports trunk or limbs, but provides less than half the effort. 2-Substantial/Maximal Assistance-helper does MORE THAN HALF the effort. [place] lifts or holds trunk or limbs and provides more than half the effort. 7-Recqtusyy-mzrigs does ALL the effort. Patient does none of the effort to complete the activity. Or, the assistance of 2 or more helpers is required for the patient to complete the activity. If activity was not attempted, code reason: 7-Patient Refused. 9-Not Applicable-not attempted and the patient did not perform the activity before the current illness, exacerbation or injury. 10-Not Attempted due to Environmental Limitations-(lack of equipment, weather restraints, etc.). 88-Not Attempted due to Medical Conditions or Safety Concerns. Roll Left to Right (QC): 6 Sit to Lying (QC): 4 Sit to Stand (QC): 5 Chair/Vln-dx-Ipkix Xfer(QC): 4 Car Transfer (QC): 6 Gait Training Does the Patient Walk?: Yes Distance: 30', 60' Walk 10 feet (QC): 4 Walk 50 ft with 2 Turns(QC): 4 Walk 150 ft (QC): 4 Walking 10ft/uneven surface-QC: 88 Gait Persons Needed: 1 Gait Assistive Device: FWW Wheelchair Training Does the Pt Use a Wheelchair?: Yes Distance: 150' Wheel 50 ft with 2 turns (QC): 5 Wheel 150 ft (QC): 5 Type of Wheelchair: Manual Stair Training 1 Step (curb) (QC): 88 4 Steps (QC): 88 12 Steps (QC): 88 Balance Picking up an Object (QC): 88 ADL-Treatment Eating (QC): 5 Oral Hygiene (QC): 5 Shower/Bathe Self (QC): 4 Upper Body Dressing (QC): 4 Lower Body Dressing (QC): 3 On/Off Footwear (QC): 3 Toileting Hygiene (QC): 3 Toilet Transfer (QC): 3 Assessment/Plan Assessment and Plan Assess & Plan/Chief Complaint Assessment: 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 Hypertension Hyperlipidemia FRANK Prostate cancer history Urinary incontinence Plan: Inpatient rehab protocol Supportive care Pain control 10/23/2021: Supportive care Pain control Cardiology consult 10/24/2021: Supportive care Orthopedic consult on Wednesday10/25/2021: Orthopedic surgery consult Checked meds and labs Appreciate cardiology 10/26/21: Monitor closely 10/27/21: Supportive care Appreciated Dr Godinez 10/28/21: Non-compliant with NWB 10/29/21: More practice with knee scooter 10/30/21: Wheelchair mobility 10/31/21: Monitor closely 11/01/2021: Wheelchair mobility Monitor urinary incontinence (1) History of cerebrovascular accident Assessment & Plan: He reportedly had a cerebrovascular accident in December, and had been taking aspirin and rosuvastatin since then. As above, he had another stroke during his more recent hospitalization in [place], [place]. His aspirin was changed over to clopidogrel. His rosuvastatin changed over to atorvastatin. I would recommend we continue the clopidogrel but for convenience sake, I have changed his atorvastatin back over to rosuvastatin but at a higher dose since he may have some of these tablets at home. He now has an external monitor presumably to screen for atrial fibrillation. This was ordered in [place], [place]. 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 in [place], [place] following discharge. (2) Sinus bradycardia Assessment & Plan: He was on beta-millie at home. Beta-millie was discontinued at the outside hospital due to bradycardia. (3) Primary hypertension Assessment & Plan: He is on lisinopril. Blood pressures are intermittently elevated. I did increase his dose of lisinopril. We may need to give this another week or 2 to see the final effect on his blood pressure. Avoid beta- millie due to previous bradycardia as noted above (4) Mixed hyperlipidemia Assessment & Plan: I changed his atorvastatin to rosuvastatin and increased the dose given his previous cerebrovascular accident. He was taking rosuvastatin at home. (5) Obesity Assessment & Plan: He needs to work on weight loss. VANNESA PARDO DO Nov 01, 2021 09:46
[2021-11-01] MEDS: polyethylene glycoL POWDER 17 GM (MIRALAX) PACK PO SCH ×2 (10:07→20:12)
--- NOTE | 2021-11-01 13:34 | Physical Therapy Daily Note ---
PT Daily Note-Current Subjective Pt sitting in recliner with Sp present upon arrival. Pt agrees to PT, expressing excitement for d/c on Wednesday (11/04). Pain Location: No Pain Reported Mental Status Patient Orientation: Person, Place, Situation Attachments: Other-See Comments (CAM boot for R LE) Transfers SCALE: Activities may be completed with or without assistive devices. 9-Dxwzsiwumc-amosaxk completes the activity by him/herself with no assistance from a helper. 5-Set-up or Clean-up Assistance-helper sets up or cleans up; patient completes activity. [place] assists only prior to or following the activity. 4-Supervision or Touching Assistance-helper provides verbal cues and/or touching/steadying and/or contact guard assistance as patient completes activity. Assistance may be provided throughout the activity or intermittently. 3-Partial/Moderate Assistance-helper does LESS THAN HALF the effort. [place] lifts, holds or supports trunk or limbs, but provides less than half the effort. 2-Substantial/Maximal Assistance-helper does MORE THAN HALF the effort. [place] lifts or holds trunk or limbs and provides more than half the effort. 0-Egrvyvxzu-plrgqe does ALL the effort. Patient does none of the effort to comp lete the activity. Or, the assistance of 2 or more helpers is required for the patient to complete the activity. If activity was not attempted, code reason: 7-Patient Refused. 9-Not Applicable-not attempted and the patient did not perform the activity before the current illness, exacerbation or injury. 10-Not Attempted due to Environmental Limitations-(lack of equipment, weather restraints, etc.). 88-Not Attempted due to Medical Conditions or Safety Concerns. Sit to Stand (QC): 5 Weight Bearing Right Lower Extremity: Right Non Weight Bearing Left Lower Extremity: Left Weight Bearing/Tolerated othPatient is NWB on the right leg without the CAM boot and apparently is weight bearing on the right leg with the CAM boot but is unclear how much; Clarification from PT evaluation. After gait training, nurse brought Ortho notes from [facility] to this PT and states that "CAM boot is not appropriate at this time". Therefore, patient is still NWB in the right LE until follow up with orthopedic physician. Wheelchair Training Does the Pt Use a Wheelchair?: Yes Type of Wheelchair: Manual Exercises Seated Therapy Exercises: Ankle pumps, Long arc quads, Hip flexion Seated Reps: 15 Treatments Pt completes Seated Ex. Sp again asks questions regarding d/c and AE. AVIONICS SYSTEM ENGINEER refers Sp to talk with SW regarding these questions. Pt resting in recliner with all needs met, call light in hand. Assessment Current Status: Fair Progress Pt doesn't comply w/NWB status. PT Short Term Goals Short Term Goals Time Frame: Oct 29, 2021 Roll Left & Right: 6 Sit to lyin Lying to sitting on side of be: 3 Sit to stand: 4 Chair/tqi-vl-udjmo transfer: 4 Walk 10 feet: 4 PT Stick Welder Goals Stick Welder Goals PT Stick Welder Goals Time Frame: Nov 12, 2021 Roll Left & Right (QC): 6 Sit to Lying (QC): 6 Lying-Sitting on Side/Bed(QC): 6 Sit to Stand (QC): 4 (SBA) Chair/Imf-xf-Fmxwc Xfer(QC): 4 (SBA) Toilet Transfer (QC): 4 (SBA) Car Transfer (QC): 4 (SBA) Does the Patient Walk: Yes Walk 10 feet (QC): 4 (GA) Walk 50ft with 2 Turns (QC): 4 (CGA) Walk 150 ft (QC): 88 Walking 10ft on Uneven Surface: 4 (CGA) 1 Step (curb) (QC): 88 4 Steps (QC): 88 12 Steps (QC): 88 Picking up an Object (QC): 4 (CGA) Wheel 50 feet with 2 turns (QC: 6 Wheel 150 feet: 6 PT Plan Problem List Problem List: Activity Tolerance, Safety Treatment/Plan Treatment Plan: Continue Plan of Care Treatment Plan: Bed Mobility, Education, Functional Activity Nona, Functional Strength, Group Therapy, Gait, Safety, Therapeutic Exercise, Transfers Treatment Duration: Nov 12, 2021 Frequency: At least 5 of 7 days/Wk (IRF) Estimated Hrs Per Day: 1.5 hours per day Patient and/or Family Agrees t: Yes Safety Risks/Education Patient Education: Correct Positioning, Safety Issues Teaching Recipient: Patient Teaching Methods: Discussion Response to Teaching: Reinforcement Needed Time/GCodes Time In: 1130 Time Out: 1200 Total Billed Treatment Time: 30 Total Billed Treatment 1, FA x2 (30m) AMIRAH SALAS AVIONICS SYSTEM ENGINEER Nov 01, 2021 13:34
[2021-11-01 19:26] VITALS: BP 147/71
[2021-11-01] MEDS: ROSUVASTATIN 10 MG (CRESTOR) TABLET PO SCH (20:13)
[2021-11-02 08:11] VITALS: BP 155/75
[2021-11-02] MEDS: SINEMET 25/100 (CARBIDOPA/LEVODOPA) TAB PO SCH ×3 (08:14→20:39)
[2021-11-02] MEDS: CLOPIDOGREL 75 MG (PLAVIX) TABLET PO SCH (08:14)
[2021-11-02] MEDS: PANTOPRAZOLE 20 MG TABLET (PROTONIX) PO SCH (08:14)
[2021-11-02] MEDS: lisINopril 40 MG (PRINIVIL) TABLET PO SCH (08:14)
[2021-11-02] MEDS: SENNA W/DOCUSATE (SENOKOT S) TABLET PO SCH ×2 (08:15→20:39)
[2021-11-02] MEDS: DOCUSATE SODIUM 100 MG (COLACE) CAP PO SCH ×2 (08:15→20:39)
--- NOTE | 2021-11-02 08:39 | PM&R Progress Note ---
Subjective HPI/CC On Admission Date Seen by Provider: Nov 02, 2021 Time Seen by Provider: 14:00 Subjective/Events-last exam 11/02/2021: Patient doing really well Wheelchair mobility going well Discharge plan for Wednesday11/01/2021: Patient doing really well Bowels moved yesterday Stitches came out yesterday Incontinent pad last night Check meds labs 10/31/21: Pt is transferring from the wheelchair to the bed doing very well Less impulsive Checked meds and labs No falls 10/30/21: Pt doing really well Incision looks good Wheelchair at home will be able to navigate better with that Non-weight bearing is still a challenge 10/29/21: BM are regular Dressing changed tomorrow, they are changed every other day Works the knee scooter really well Trying to minimally bear weight 10/28/21: Pt is doing a lot better Non weight bearing for 6 weeks was reiterated by Dr. Wilson but doubt he will maintain No pain was reported otherwise Getting himself shaved Checked meds and labs 10/27/21: Pt doing really well. Orthopedic Surgery will be consulted. Social Work consult too IS used Checked meds and labs Declines any additional lab work to be drawn. 10/26/21: Patient doing well Requests bedpan Cam boot in place 10/25/2021: Patient doing really well Dr. Lubin is appreciated Supportive care Checked meds and labs 10/24/2021: Allevyn on his bottom PT and OT doing well Walked with his cam boot Bowels moving Document Dr. Lubin cardiology and he sees Dr. De La Torre Checked meds and labs 10/23/2021: Pt doing well Bowels are moving at the bedside Made some suicidal statements that weren't really suicidal Labs reviewed External monitor will require cardiology evaluation Weight-bearing as tolerated will be given because he will not do anything otherwise Review of Systems General: Fatigue, Malaise Objective Exam Vital Signs Vital Signs Date Time Temp Pulse Resp B/P (MAP) Pulse Ox O2 Delivery O2 Flow Rate FiO2 11/02/21 21:00 Room Air 11/02/21 20:28 36.9 76 20 147/83 (104) 96 Capillary Refill : General Appearance: No Apparent Distress, WD/WN, Chronically ill, Obese HEENT: PERRL/EOMI, Normal ENT Inspection, Pharynx Normal Neck: Full Range of Motion, Normal Inspection, Non Tender, Supple, Carotid Bruit Respiratory: Chest Non Tender, Lungs Clear, Normal Breath Sounds, No Accessory Muscle Use, No Respiratory Distress Cardiovascular: Regular Rate, Rhythm, No Edema, No Gallop, No JVD, No Murmur, Normal Peripheral Pulses Gastrointestinal: Normal Bowel Sounds, No Organomegaly, No Pulsatile Mass, Non Tender, Soft Back: Normal Inspection, No CVA Tenderness, No Vertebral Tenderness Extremity: Normal Capillary Refill, Normal Inspection, Normal Range of Motion (Except right ankle), Non Tender, No Calf Tenderness, No Pedal Edema Neurologic/Psychiatric: Alert, Oriented x3, No Motor/Sensory Deficits, Normal Mood/Affect, animal skinner II-XII Norm as Tested, Abnormal Gait, Motor Weakness Skin: Normal Color, Warm/Dry Lymphatic: No Adenopathy Results/Procedures Lab Patient resulted labs reviewed. FIM Transfers Therapy Code Descriptions/Definitions Functional [place] Measure: 0=Not Assessed/NA 4=Minimal Assistance 1=Total Assistance 5=Supervision or Setup 2=Maximal Assistance 6=Modified [place] 3=Moderate Assistance 7=Complete IndependenceSCALE: Activities may be completed with or without assistive devices. 6-Ibkmcbnmeh-tvpfquf completes the activity by him/herself with no assistance from a helper. 5-Set-up or Clean-up Assistance-helper sets up or cleans up; patient completes activity. [place] assists only prior to or following the activity. 4-Supervision or Touching Assistance-helper provides verbal cues and/or touching/steadying and/or contact guard assistance as patient completes activity. Assistance may be provided throughout the activity or intermittently. 3-Partial/Moderate Assistance-helper does LESS THAN HALF the effort. [place] lifts, holds or supports trunk or limbs, but provides less than half the effort. 2-Substantial/Maximal Assistance-helper does MORE THAN HALF the effort. [place] lifts or holds trunk or limbs and provides more than half the effort. 2-Kxoxluova-afubjj does ALL the effort. Patient does none of the effort to complete the activity. Or, the assistance of 2 or more helpers is required for the patient to complete the activity. If activity was not attempted, code reason: 7-Patient Refused. 9-Not Applicable-not attempted and the patient did not perform the activity before the current illness, exacerbation or injury. 10-Not Attempted due to Environmental Limitations-(lack of equipment, weather restraints, etc.). 88-Not Attempted due to Medical Conditions or Safety Concerns. Roll Left to Right (QC): 6 Sit to Lying (QC): 4 Sit to Stand (QC): 5 Chair/Ybx-dz-Alirv Xfer(QC): 4 Car Transfer (QC): 6 Gait Training Does the Patient Walk?: Yes Distance: 30', 60' Walk 10 feet (QC): 4 Walk 50 ft with 2 Turns(QC): 4 Walk 150 ft (QC): 4 Walking 10ft/uneven surface-QC: 88 Gait Persons Needed: 1 Gait Assistive Device: FWW Wheelchair Training Does the Pt Use a Wheelchair?: Yes Distance: 150' Wheel 50 ft with 2 turns (QC): 5 Wheel 150 ft (QC): 5 Type of Wheelchair: Manual Stair Training 1 Step (curb) (QC): 88 4 Steps (QC): 88 12 Steps (QC): 88 Balance Picking up an Object (QC): 88 ADL-Treatment Eating (QC): 5 Oral Hygiene (QC): 5 Shower/Bathe Self (QC): 4 Upper Body Dressing (QC): 4 Lower Body Dressing (QC): 3 On/Off Footwear (QC): 3 Toileting Hygiene (QC): 3 Toilet Transfer (QC): 3 Assessment/Plan Assessment and Plan Assess & Plan/Chief Complaint Assessment: 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 Hypertension Hyperlipidemia FRANK Prostate cancer history Urinary incontinence Plan: Inpatient rehab protocol Supportive care Pain control 10/23/2021: Supportive care Pain control Cardiology consult 10/24/2021: Supportive care Orthopedic consult on Wednesday10/25/2021: Orthopedic surgery consult Checked meds and labs Appreciate cardiology 10/26/21: Monitor closely 10/27/21: Supportive care Appreciated Dr Godinez 10/28/21: Non-compliant with NWB 10/29/21: More practice with knee scooter 10/30/21: Wheelchair mobility 10/31/21: Monitor closely 11/01/2021: Wheelchair mobility Monitor urinary incontinence 11/02/2021: Supportive care Discharge Wednesday (1) History of cerebrovascular accident Assessment & Plan: He reportedly had a cerebrovascular accident in March, 2021 and had been taking aspirin and rosuvastatin since then. As above, he had another stroke during his more recent hospitalization in [place], [place]. His aspirin was changed over to clopidogrel. His rosuvastatin changed over to atorvastatin. I would recommend we continue the clopidogrel but for convenience sake, I have changed his atorvastatin back over to rosuvastatin but at a higher dose since he may have some of these tablets at home. He now has an external monitor presumably to screen for atrial fibrillation. This was ordered in [place], [place]. The patient will need to follow-up with his regular baker second at [facility] in [place], [place] following discharge. (2) Sinus bradycardia Assessment & Plan: He was on beta-millie at home. Beta-millie was discontinued at the outside hospital due to bradycardia. (3) Primary hypertension Assessment & Plan: He is on lisinopril. Blood pressures are intermittently elevated. I did increase his dose of lisinopril. We may need to give this another week or 2 to see the final effect on his blood pressure. Avoid beta-blo cker due to previous bradycardia as noted above (4) Mixed hyperlipidemia Assessment & Plan: I changed his atorvastatin to rosuvastatin and increased the dose given his previous cerebrovascular accident. He was taking rosuvastatin at home. (5) Obesity Assessment & Plan: He needs to work on weight loss. VANNESA PARDO DO Nov 02, 2021 08:39
[2021-11-02] MEDS: polyethylene glycoL POWDER 17 GM (MIRALAX) PACK PO SCH ×2 (12:04→20:39)
[2021-11-02 20:28] VITALS: BP 147/83
[2021-11-02] MEDS: ROSUVASTATIN 10 MG (CRESTOR) TABLET PO SCH (20:39)
[2021-11-03 08:00] VITALS: BP 152/70
--- NOTE | 2021-11-03 08:38 | PM&R Progress Note ---
Subjective HPI/CC On Admission Date Seen by Provider: Nov 03, 2021 Time Seen by Provider: 09:00 Subjective/Events-last exam 11/03/21: Pt set for discharge tomorrow [facility] his [facility] No pain is reported 11/02/2021: Patient doing really well Wheelchair mobility going well Discharge plan for Wednesday11/01/2021: Patient doing really well Bowels moved yesterday Stitches came out yesterday Incontinent pad last night Check meds labs 10/31/21: Pt is transferring from the wheelchair to the bed doing very well Less impulsive Checked meds and labs No falls 10/30/21: Pt doing really well Incision looks good Wheelchair at home will be able to navigate better with that Non-weight bearing is still a challenge 10/29/21: BM are regular Dressing changed tomorrow, they are changed every other day Works the knee scooter really well Trying to minimally bear weight 10/28/21: Pt is doing a lot better Non weight bearing for 6 weeks was reiterated by Dr. Wilson but doubt he will maintain No pain was reported otherwise Getting himself shaved Checked meds and labs 10/27/21: Pt doing really well. Orthopedic Surgery will be consulted. Social Work consult too IS used Checked meds and labs Declines any additional lab work to be drawn. 10/26/21: Patient doing well Requests bedpan Cam boot in place 10/25/2021: Patient doing really well Dr. Lubin is appreciated Supportive care Checked meds and labs 10/24/2021: Alleluis eyn on his bottom PT and OT doing well Walked with his cam boot Bowels moving Document Dr. Lubin cardiology and he sees Dr. De La Torre Checked meds and labs 10/23/2021: Pt doing well Bowels are moving at the bedside Made some suicidal statements that weren't really suicidal Labs reviewed External monitor will require cardiology evaluation Weight-bearing as tolerated will be given because he will not do anything otherwise Review of Systems General: Fatigue, Malaise Musculoskeletal: leg pain Objective Exam Vital Signs Vital Signs Date Time Temp Pulse Resp B/P (MAP) Pulse Ox O2 Delivery O2 Flow Rate FiO2 11/03/21 21:05 36.8 75 16 144/77 (99) 97 Room Air Capillary Refill : General Appearance: No Apparent Distress, WD/WN, Chronically ill, Obese HEENT: PERRL/EOMI, Normal ENT Inspection, Pharynx Normal Neck: Full Range of Motion, Normal Inspection, Non Tender, Supple, Carotid Bruit Respiratory: Chest Non Tender, Lungs Clear, Normal Breath Sounds, No Accessory Muscle Use, No Respiratory Distress Cardiovascular: Regular Rate, Rhythm, No Edema, No Gallop, No JVD, No Murmur, Normal Peripheral Pulses Gastrointestinal: Normal Bowel Sounds, No Organomegaly, No Pulsatile Mass, Non Tender, Soft Back: Normal Inspection, No CVA Tenderness, No Vertebral Tenderness Extremity: Normal Capillary Refill, Normal Inspection, Normal Range of Motion (Except right ankle), Non Tender, No Calf Tenderness, No Pedal Edema Neurologic/Psychiatric: Alert, Oriented x3, No Motor/Sensory Deficits, Normal Mood/Affect, street cleaner II-XII Norm as Tested, Abnormal Gait, Motor Weakness Skin: Normal Color, Warm/Dry Lymphatic: No Adenopathy Results/Procedures Lab Laboratory Tests 11/03/21 08:35 Patient resulted labs reviewed. FIM Transfers Therapy Code Descriptions/Definitions Functional [place] Measure: 0=Not Assessed/NA 4=Minimal Assistance 1=Total Assistance 5=Supervision or Setup 2=Maximal Assistance 6=Modified [place] 3=Moderate Assistance 7=Complete IndependenceSCALE: Activities may be completed with or without assistive devices. 6-Jvbolqzctj-rvgbikj completes the activity by him/herself with no assistance from a helper. 5-Set-up or Clean-up Assistance-helper sets up or cleans up; patient completes activity. [place] assists only prior to or following the activity. 4-Supervision or Touching Assistance-helper provides verbal cues and/or to uching/steadying and/or contact guard assistance as patient completes activity. Assistance may be provided throughout the activity or intermittently. 3-Partial/Moderate Assistance-helper does LESS THAN HALF the effort. [place] lifts, holds or supports trunk or limbs, but provides less than half the effort. 2-Substantial/Maximal Assistance-helper does MORE THAN HALF the effort. [place] lifts or holds trunk or limbs and provides more than half the effort. 1-Wnagslbza-gkdtud does ALL the effort. Patient does none of the effort to complete the activity. Or, the assistance of 2 or more helpers is required for the patient to complete the activity. If activity was not attempted, code reason: 7-Patient Refused. 9-Not Applicable-not attempted and the patient did not perform the activity before the current illness, exacerbation or injury. 10-Not Attempted due to Environmental Limitations-(lack of equipment, weather restraints, etc.). 88-Not Attempted due to Medical Conditions or Safety Concerns. Roll Left to Right (QC): 6 Sit to Lying (QC): 4 Sit to Stand (QC): 5 Chair/[place]ec-mo-Uaaen Xfer(QC): 4 Car Transfer (QC): 6 Gait Training Does the Patient Walk?: Yes Distance: 30', 60' Walk 10 feet (QC): 4 Walk 50 ft with 2 Turns(QC): 4 Walk 150 ft (QC): 4 Walking 10ft/uneven surface-QC: 88 Gait Persons Needed: 1 Gait Assistive Device: FWW Wheelchair Training Does the Pt Use a Wheelchair?: Yes Distance: 150' Wheel 50 ft with 2 turns (QC): 5 Wheel 150 ft (QC): 5 Type of Wheelchair: Manual Stair Training 1 Step (curb) (QC): 88 4 Steps (QC): 88 12 Steps (QC): 88 Balance Picking up an Object (QC): 88 ADL-Treatment Eating (QC): 5 Oral Hygiene (QC): 5 Shower/Bathe Self (QC): 4 Upper Body Dressing (QC): 4 Lower Body Dressing (QC): 3 On/Off Footwear (QC): 3 Toileting Hygiene (QC): 3 Toilet Transfer (QC): 3 Assessment/Plan Assessment and Plan Assess & Plan/Chief Complaint Assessment: 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 Hypertension Hyperlipidemia FRANK Prostate cancer history Urinary incontinence Plan: Inpatient rehab protocol Supportive care Pain control 10/23/2021: Supportive care Pain control Cardiology consult 10/24/2021: Supportive care Orthopedic consult on Wednesday10/25/2021: Orthopedic surgery consult Checked meds and labs Appreciate cardiology 10/26/21: Monitor closely 10/27/21: Supportive care Appreciated Dr Godinez 10/28/21: Non-compliant with NWB 10/29/21: More practice with knee scooter 10/30/21: Wheelchair mobility 10/31/21: Monitor closely 11/01/2021: Wheelchair mobility Monitor urinary incontinence 11/02/2021: Supportive care Discharge Wednesday11/03/21: DC tomorrow (1) History of cerebrovascular accident Assessment & Plan: He reportedly had a cerebrovascular accident in December, and had been taking aspirin and rosuvastatin since then. As above, he had another stroke during his more recent hospitalization in [place], [place]. His aspirin was changed over to clopidogrel. His rosuvastatin changed over to a torvastatin. I would recommend we continue the clopidogrel but for convenience sake, I have changed his atorvastatin back over to rosuvastatin but at a higher dose since he may have some of these tablets at home. He now has an external monitor presumably to screen for atrial fibrillation. This was ordered in [place], [place]. The patient will need to follow-up with his regular value engineer at [facility] in [place], [place] following discharge. (2) Sinus bradycardia Assessment & Plan: He was on beta-millie at home. Beta-millie was discontinued at the outside hospital due to bradycardia. (3) Primary hypertension Assessment & Plan: He is on lisinopril. Blood pressures are intermittently elevated. I did increase his dose of lisinopril. We may need to give this another week or 2 to see the final effect on his blood pressure. Avoid beta- millie due to previous bradycardia as noted above (4) Mixed hyperlipidemia Assessment & Plan: I changed his atorvastatin to rosuvastatin and increased the dose given his previous cerebrovascular accident. He was taking rosuvastatin at home. (5) Obesity Assessment & Plan: He needs to work on weight loss. VANNESA PARDO DO Nov 03, 2021 08:38
[2021-11-03 08:48] LABS: BASOPHILS % (AUTO) 1 % (0-10); EOSINOPHILS # (AUTO) 0.2 10^3/uL (0.0-0.3); EOSINOPHILS % (AUTO) 4 % (0-10); HEMATOCRIT 49 % (40-54); HEMOGLOBIN 16.3 g/dL (13.3-17.7); LYMPHOCYTES % (AUTO) 19 % (12-44); MEAN CORPUSCULAR HEMOGLOBIN 30 pg (25-34); MEAN CORPUSCULAR HGB CONC 33 g/dL (32-36); MEAN CORPUSCULAR VOLUME 89 fL (80-99); MEAN PLATELET VOLUME 9.5 fL (9.0-12.2); MONOCYTES # (AUTO) 0.6 10^3/uL (0.0-1.0); MONOCYTES % (AUTO) 11 % (0-12); NEUTROPHILS # (AUTO) 3.3 10^3/uL (1.8-7.8); NEUTROPHILS % (AUTO) 64 % (42-75); PLATELET COUNT 275 10^3/uL (130-400); WHITE BLOOD COUNT 5.2 10^3/uL (4.3-11.0)
--- NOTE | 2021-11-03 09:04 | Occupational Ther Daily Note ---
OT Current Status-Daily Note Subjective Denies pain, agreeable to treatment Appearance Left sitting in recliner, all needs within reach. in room. Mental Status/Objective Patient Orientation: Person ADL-Treatment Therapy Code Descriptions/Definitions Functional [place] Measure: 0=Not Assessed/NA 4=Minimal Assistance 1=Total Assistance 5=Supervision or Setup 2=Maximal Assistance 6=Modified [place] 3=Moderate Assistance 7=Complete IndependenceSCALE: Activities may be completed with or without assistive devices. 5-Tuqtqryqvr-dxjwhth completes the activity by him/herself with no assistance from a helper. 5-Set-up or Clean-up Assistance-helper sets up or cleans up; patient completes activity. [place] assists only prior to or following the activity. 4-Supervision or Touching Assistance-helper provides verbal cues and/or touching/steadying and/or contact guard assistance as patient completes activity. Assistance may be provided throughout the activity or intermittently. 3-Partial/Moderate Assistance-helper does LESS THAN HALF the effort. [place] lifts, holds or supports trunk or limbs, but provides less than half the effort. 2-Substantial/Maximal Assistance-helper does MORE THAN HALF the effort. [place] lifts or holds trunk or limbs and provides more than half the effort. 6-Xrfsafota-ijotqd does ALL the effort. Patient does none of the effort to complete the activity. Or, the assistance of 2 or more helpers is required for the patient to complete the activity. If activity was not attempted, code reason: 7-Patient Refused. 9-Not Applicable-not attempted and the patient did not perform the activity before the current illness, exacerbation or injury. 10-Not Attempted due to Environmental Limitations-(lack of equipment, weather restraints, etc.). 88-Not Attempted due to Medical Conditions or Safety Concerns. Eating (QC): 6 Oral Hygiene (QC): 6 Shower/Bathe Self (QC): 4 Upper Body Dressing (QC): 4 Lower Body Dressing (QC): 3 On/Off Footwear: 3 (min a to don cam boot) Toileting Hygiene (QC): 3 Toilet Transfer (QC): 4 Shower performed; 100% completed in sitting. Per chart, carol removed and steri strips applied. Per RN, OT to still cover ankle until clarification from ortho doctor on if incision can get wet. Incision C/D/I post task. Cues to perform lateral pelvic lean in order to reach buttocks. Clothes donned seated in w/c. Pt continues to need verbal cues to initiate last step of pulling shirt down around torso after donning overhead. With extra time and breaks, pt able to thread BLE's into LB clothing. He continues to have poor safety in standing by exhibiting non-compliance with NWB as well as resting head on wall and removing BUE support during clothing management. OT re-educated and pt on proper sequencing and safety of task. Min a to don cam boot as pt required assist to fasten most distal velcro strap. Pt able to complete all other steps with verbal cues. present to learn correct sequence. Sit<>stand: SBA-CGA. Pt does better with adhering to NWB when given cues to keep RLE extended when standing/sitting. However, pt has Poor carryover and requires same cue with every transfer. Slight improvement with maintaining wb status when pivoting, but still requires min-mod cues. Poor safety with recall of locking brakes on w/c prior to transfers. Education OT Patient Education: Correct positioning, Energy conservation, Instructions to caregiver, Modified ADL techniques, Progress toward Goal/Update tx plan, Purpose of tx/functional activities, Reviewed precautions, Safety issues, Transfer techniques, W/C management Teaching Recipient: Patient, Family Teaching Methods: Demonstration, Discussion Response to Teaching: Verbalize Understanding, Return Demonstration, Reinforcement Needed OT Short Term Goals Short Term Goals Time Frame: Oct 31, 2021 Eatin Oral hygiene: 5 Toileting hygiene: 3 Shower/bathe self: 3 Upper body dressin Lower body dressin Putting on/taking off footwear: 3 (including cam boot) OT Nursing Home Goals Oracle Database Analyst Goals Time Frame: Nov 12, 2021 Eating (QC): 6 (met) Oral Hygiene (QC): 6 (met) Toileting Hygiene (QC): 5 Shower/Bathe Self (QC): 5 Upper Body Dressing (QC): 6 Lower Body Dressing (QC): 5 On/Off Footwear (QC): 5 1=Demonstrate adherence to instructed precautions during ADL tasks. 2=Patient will verbalize/demonstrate understanding of assistive devices/modifications for ADL. 3=Patient will improve strength/tolerance for activity to enable patient to perform ADL's. OT Education/Plan Problem List/Assessment Assessment: Decreased Activ Tolerance, Decreased Safety Aware, Decreased UE Strength, Impaired Cognition, Impaired Self-Care Skills Discharge Recommendations Plan/Recommendations: Continue POC Equpiment Recommendations-D/C: Bath Chair Treatment Plan/Plan of Care Treatment,Training & Education: Yes Patient would benefit from OT for education, treatment and training to promote independence in ADL's, mobility, safety and/or upper extremity function for ADL's. Plan of Care: ADL Retraining, Functional Mobility, Group Exercise/Act as Ind, Orthotic Fitting/Training, UE Funct Exercise/Act, W/C Management Training Treatment Duration: Nov 12, 2021 Frequency: At least 5 of 7 days/Wk (IRF) Estimated Hrs Per Day: 1.5 hours per day Agreement: Yes Rehab Potential: Fair Time/GCodes Start Time: 07:48 Stop Time: 08:58 Total Time Billed (hr/min): 69 Billed Treatment Time 1 visit ADL x5 Rosalee Laguna OT Nov 03, 2021 09:04
[2021-11-03 09:24] LABS: ALBUMIN 4.1 GM/DL (3.2-4.5); BILIRUBIN,TOTAL 0.8 MG/DL (0.1-1.0); CALCIUM 9.8 MG/DL (8.5-10.1); CREATININE SERUM 1.08 MG/DL (0.60-1.30); POTASSIUM 4.2 MMOL/L (3.6-5.0)
[2021-11-03] MEDS: SENNA W/DOCUSATE (SENOKOT S) TABLET PO SCH ×2 (09:28→20:56)
[2021-11-03] MEDS: PANTOPRAZOLE 20 MG TABLET (PROTONIX) PO SCH (09:29)
[2021-11-03] MEDS: CLOPIDOGREL 75 MG (PLAVIX) TABLET PO SCH (09:29)
[2021-11-03] MEDS: lisINopril 40 MG (PRINIVIL) TABLET PO SCH (09:30)
[2021-11-03] MEDS: polyethylene glycoL POWDER 17 GM (MIRALAX) PACK PO SCH ×2 (09:30→20:57)
[2021-11-03] MEDS: SINEMET 25/100 (CARBIDOPA/LEVODOPA) TAB PO SCH ×3 (09:30→20:57)
[2021-11-03] MEDS: DOCUSATE SODIUM 100 MG (COLACE) CAP PO SCH ×2 (09:30→20:56)
--- NOTE | 2021-11-03 11:02 | Physical Therapy Daily Note ---
PT Daily Note-Current Subjective Pt. and present for tx, expect to DC tomorrow, interested in lst minute functional education. Pain Location: No Pain Reported Mental Status Patient Orientation: Person, Place Attachments: Other-See Comments (SOHAM [place] right NEGRITO) Transfers SCALE: Activities may be completed with or without assistive devices. 3-Owldjqpswc-fjuvxuf completes the activity by him/herself with no assistance from a helper. 5-Set-up or Clean-up Assistance-helper sets up or cleans up; patient completes activity. [place] assists only prior to or following the activity. 4-Supervision or Touching Assistance-helper provides verbal cues and/or touching/steadying and/or contact guard assistance as patient completes activity. Assistance may be provided throughout the activity or intermittently. 3-Partial/Moderate Assistance-helper does LESS THAN HALF the effort. [place] lifts, holds or supports trunk or limbs, but provides less than half the effort. 2-Substantial/Maximal Assistance-helper does MORE THAN HALF the effort. [place] lifts or holds trunk or limbs and provides more than half the effort. 1-Nescmdyjm-uwyjer does ALL the effort. Patient does none of the effort to complete the activity. Or, the assistance of 2 or more helpers is required for the patient to complete the activity. If activity was not attempted, code reason: 7-Patient Refused. 9-Not Applicable-not attempted and the patient did not perform the activity before the current illness, exacerbation or injury. 10-Not Attempted due to Environmental Limitations-(lack of equipment, weather restraints, etc.). 88-Not Attempted due to Medical Conditions or Safety Concerns. Roll Left & Right (QC): 6 Sit to Lying (QC): 6 Lying to Sitting/Side of Bed(Q: 6 Sit to Stand (QC): 5 Chair/Jej-hm-Kukbu Xfer(QC): 5 Toilet Transfer (QC): 5 Car Transfer (QC): 5 Pt and observed for all TRFs with being educated in donning and doffing gait belt and aligning w/c for shortest most affective SPT as possible to help alleviate as much wt bearing possibilities on R ankle as possible. demonstrated good skills for all as well as good understanding of the situation. pt. needing frequent reminders to try not to wt bear on right but becomes zi irritated and cross with his as she cues and reminds him Weight Bearing Right Lower Extremity: Right Non Weight Bearing Left Lower Extremity: Left Weight Bearing/Tolerated othPatient is NWB on the right leg without the CAM boot and apparently is weight bearing on the right leg with the CAM boot but is unclear how much; Clarification from PT evaluation. After gait training, nurse brought Ortho notes from [facility] to this PT and states that "CAM boot is not appropriate at this time". Therefore, patient is still NWB in the right LE until follow up with orthopedic physician. Gait Training Walk 10 feet (QC): 88 Walk 50 ft with 2 Turns(QC): 88 Walk 150 ft (QC): 88 Walking 10ft/uneven surface-QC: 88 no gait training as pt. does not/cannot NWB RLE Wheelchair Training Does the Pt Use a Wheelchair?: Yes Wheel 50 ft with 2 turns (QC): 6 Wheel 150 ft (QC): 6 Type of Wheelchair: Manual pt. is very slow, and needs some rest breaks but is doing well with WC management. shares that she has opened up the house as much as possible to make room for w/c Stair Training #of Steps: 0 1 Step (curb) (QC): 88 4 Steps (QC): 88 12 Steps (QC): 88 pt. 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 she expresses frustration and concern that pts Parkinsons and dementia and tumor are slowly making it more difficult for her to guide and care for him. Pt. is harsh and obstinent with her PT Short Term Goals Short Term Goals Time Frame: Oct 29, 2021 Roll Left & Right: 6 Sit to lyin Lying to sitting on side of be: 3 Sit to stand: 4 Chair/ppu-qv-ycdev transfer: 4 Walk 10 feet: 4 PT Custodial Goals Paperboard Boxes Estimator Goals PT Custodial Goals Time Frame: Nov 12, 2021 Roll Left & Right (QC): 6 Sit to Lying (QC): 6 Lying-Sitting on Side/Bed(QC): 6 Sit to Stand (QC): 4 (SBA) Chair/Jzz-vy-Vahoj Xfer(QC): 4 (SBA) Toilet Transfer (QC): 4 (SBA) Car Transfer (QC): 4 (SBA) Does the Patient Walk: Yes Walk 10 feet (QC): 4 (GA) Walk 50ft with 2 Turns (QC): 4 (CGA) Walk 150 ft (QC): 88 Walking 10ft on Uneven Surface: 4 (CGA) 1 Step (curb) (QC): 88 4 Steps (QC): 88 12 Steps (QC): 88 Picking up an Object (QC): 4 (CGA) Wheel 50 feet with 2 turns (QC: 6 Wheel 150 feet: 6 PT Plan Treatment/Plan Treatment Plan: Continue Plan of Care Treatment Plan: Bed Mobility, Education, Functional Activity Nona, Functional Strength, Group Therapy, Gait, Safety, Therapeutic Exercise, Transfers Treatment Duration: Nov 12, 2021 Frequency: At least 5 of 7 days/Wk (IRF) Estimated Hrs Per Day: 1.5 hours per day Patient and/or Family Agrees t: Yes Safety Risks/Education Patient Education: Transfer Techniques, Reviewed Precautions, Correct Positioning, W/C Management, Reviewed Don/Doff Brace, Safety Issues Time/GCodes Time In: 1000 Time Out: 1100 Total Billed Treatment Time: 60 Total Billed Treatment 1,FA30m,EX15m,WC15m GAYLE RASHID PTA Nov 03, 2021 11:02
--- NOTE | 2021-11-03 14:29 | Therapy Group Daily Note ---
Therapy Daily Group Note Patient Education Topic Other List Below (what s ARU?, memory strategies) Exercises LE Seated Exercise, UE Exercise Session Ratio (pt:therapist): 4:1 Goal of Session: Education on ARU Expectations, Memory Strategies Goal Met for this Session: Yes Pt Benefit of Group: Improved Cognition, Socialization Other/Notes Pt. participated in group session this date. Pt. came and went to group via w/c with assist. Pts introduced themselves and shared their current home city. Pts were educated in he background, purpose and expectations of ARU. The importance of memory as well as strategies to help memory were discussed. A memory activity was played utilizing matching images and bag toss . Pt to room after Rx with all needs met, lechuga at hand Start Time: 13:00 Stop Time: 14:00 Total Billed Treatment Time: 60 Total Billed Treatment 1,GRP 60m GAYLE RASHID ENVIRONMENTAL HEALTH AIDE Nov 03, 2021 14:29
[2021-11-03] MEDS: ROSUVASTATIN 10 MG (CRESTOR) TABLET PO SCH (20:56)
[2021-11-03 21:05] VITALS: BP 144/77
[2021-11-04] MEDS ORDERED: ROSU10TA28 PO (05:43)
[2021-11-04] MEDS ORDERED: ACHD5005 PO (05:43)
[2021-11-04] MEDS ORDERED: CLOP75TA28 PO (05:43)
--- NOTE | 2021-11-04 05:44 | Discharge Summary ---
Diagnosis/Chief Complaint Date of Admission Oct 22, 2021 at 10:50 Date of Discharge Discharge Date: Nov 04, 2021 Discharge Diagnosis Assessment: 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 Hypertension Hyperlipidemia FRANK Prostate cancer history Urinary incontinence Plan: Inpatient rehab protocol Supportive care Pain control 10/23/2021: Supportive care Pain control Cardiology consult 10/24/2021: Supportive care Orthopedic consult on Wednesday10/25/2021: Orthopedic surgery consult Checked meds and labs Appreciate cardiology 10/26/21: Monitor closely 10/27/21: Supportive care Appreciated Dr Godinez 10/28/21: Non-compliant with NWB 10/29/21: More practice with knee scooter 10/30/21: Wheelchair mobility 10/31/21: Monitor closely 11/01/2021: Wheelchair mobility Monitor urinary incontinence 11/02/2021: Supportive care Discharge Wednesday11/03/21: DC tomorrow (1) History of cerebrovascular accident Assessment & Plan: He reportedly had a cerebrovascular accident in December, and had been taking aspirin and rosuvastatin since then. As above, he had another stroke during his more recent hospitalization in [place], [place]. His aspirin was changed over to clopidogrel. His rosuvastatin changed over to atorvastatin. I would recommend we continue the clopidogrel but for convenience sake, I have changed his atorvastatin back over to rosuvastatin but at a higher dose since he may have some of these tablets at home. He now has an external monitor presumably to screen for atrial fibrillation. This was ordered in [place], [place]. The patient will need to follow-up with his regular treatment coordinator at [facility] in [place], [place] following discharge. (2) Sinus bradycardia Assessment & Plan: He was on beta-millie at home. Beta-millie was discontinued at the outside hospital due to bradycardia. (3) Primary hypertension Assessment & Plan: He is on lisinopril. Blood pressures are intermittently elevated. I did increase his dose of lisinopril. We may need to give this another week or 2 to see the final effect on his blood pressure. Avoid beta- millie due to previous bradycardia as noted above (4) Mixed hyperlipidemia Assessment & Plan: I changed his atorvastatin to rosuvastatin and increased the dose given his previous cerebrovascular accident. He was taking rosuvastatin at home. (5) Obesity Assessment & Plan: He needs to work on weight loss. Discharge Summary Discharge Physical Examination Allergies: Coded Allergies: Penicillins (Verified Allergy, Unknown, Rash, 10/24/21) Sulfa (Sulfonamide Antibiotics) (Verified Allergy, Unknown, Hives, 10/24/21) adhesive tape (Verified Adverse Reaction, Unknown, Rash, 10/24/21) sulfacetamide (Verified Adverse Reaction, Unknown, 10/24/21) Vitals & I&Os Vital Signs Date Time Temp Pulse Resp B/P (MAP) Pulse Ox O2 Delivery O2 Flow Rate FiO2 11/04/21 12:08 36.8 71 16 165/74 95 Room Air General Appearance: Alert, Oriented X3, Cooperative Respiratory: Clear to Auscultation Cardiovascular: Regular Rate Psych/Mental Status: Mental Status NL Hospital Course Was the Problem List Reviewed?: Yes (Hospital Course) Pt had an uneventful 2 week hospital course after he suffered a right ankle fracture he was non-weight bearing and after struggles with being unable to maintain the non-weight bearing state he tried a knee scooter with pretty good results. Then he ended up being in a wheelchair and he seems to be doing very well with that. Overall, he was ready for a discharge home with Home Health. Cardiology Dr. De La Torre will be seen as a follow-up and medication was sent into the pharmacy. Labs (last 24 hrs) Laboratory Tests 10/23/21 09:45: White Blood Count 6.2, Red Blood Count 5.19, Hemoglobin 15.4, Hematocrit 47, Mean Corpuscular Volume 91, Mean Corpuscular Hemoglobin 30, Mean Corpuscular Hemoglobin Concent 33, Red Cell Distribution Width 13.4, Platelet Count 258, Mean Platelet Volume 9.1, Immature Granulocyte % (Auto) 1, Neutrophils (%) (Auto) 65, Lymphocytes (%) (Auto) 17, Monocytes (%) (Auto) 13H, Eosinophils (%) (Auto) 3, Basophils (%) (Auto) 1, Neutrophils # (Auto) 4.1, Lymphocytes # (Auto) 1.1, Monocytes # (Auto) 0.8, Eosinophils # (Auto) 0.2, Basophils # (Auto) 0.0, Immature Granulocyte # (Auto) 0.1, Sodium Level 139, Potassium Level 4.1, Chloride Level 107, Carbon Dioxide Level 21, Anion Gap 11, Blood Urea Nitrogen 19H, Creatinine 0.90, Estimat Glomerular Filtration Rate 81, BUN/Creatinine Ratio 21, Glucose Level 126H, Calcium Level 9.5, Corrected Calcium 9.6, Total Bilirubin 1.0, Aspartate Amino Transf (AST/SGOT) 20, Alanine Aminotransferase (ALT/SGPT) 10, Alkaline Phosphatase 84, Total Protein 6.8, Albumin 3.9 10/25/21 11:40: Sodium Level 138, Potassium Level 4.1, Chloride Level 107, Carbon Dioxide Level 21, Anion Gap 10, Blood Urea Nitrogen 18, Creatinine 0.81, Estimat Glomerular Filtration Rate 91, BUN/Creatinine Ratio 22, Glucose Level 106H, Calcium Level 9.5 10/30/21 05:40: Sodium Level 138, Potassium Level 4.2, Chloride Level 104, Carbon Dioxide Level 23, Anion Gap 11, Blood Urea Nitrogen 17, Creatinine 0.92, Estimat Glomerular Filtration Rate 79, BUN/Creatinine Ratio 18, Glucose Level 114H, Calcium Level 9.2 11/03/21 08:35: White Blood Count 5.2, Red Blood Count 5.53H, Hemoglobin 16.3, Hematocrit 49, Mean Corpuscular Volume 89, Mean Corpuscular Hemoglobin 30, Mean Corpuscular Hemoglobin Concent 33, Red Cell Distribution Width 13.0, Platelet Count 275, Mean Platelet Volume 9.5, Immature Granulocyte % (Auto) 0, Neutrophils (%) (Auto) 64, Lymphocytes (%) (Auto) 19, Monocytes (%) (Auto) 11, Eosinophils (%) (Auto) 4, Basophils (%) (Auto) 1, Neutrophils # (Auto) 3.3, Lymphocytes # (Auto) 1.0, Monocytes # (Auto) 0.6, Eosinophils # (Auto) 0.2, Basophils # (Auto) 0.0, Immature Granulocyte # (Auto) 0.0, Sodium Level 138, Potassium Level 4.2, Chloride Level 104, Carbon Dioxide Level 22, Anion Gap 12, Blood Urea Nitrogen 18, Creatinine 1.08, Estimat Glomerular Filtration Rate 66, BUN/Creatinine Ratio 17, Glucose Level 131H, Calcium Level 9.8, Corrected Calcium 9.7, Total Bilirubin 0.8, Aspartate Amino Transf (AST/SGOT) 14, Alanine Aminotransferase (ALT/SGPT) 11, Alkaline Phosphatase 97, Total Protein 7.0, Albumin 4.1 Pending Labs Laboratory Tests 10/23/21 09:45: White Blood Count 6.2, Red Blood Count 5.19, Hemoglobin 15.4, Hematocrit 47, Mean Corpuscular Volume 91, Mean Corpuscular Hemoglobin 30, Mean Corpuscular Hemoglobin Concent 33, Red Cell Distribution Width 13.4, Platelet Count 258, Mean Platelet Volume 9.1, Immature Granulocyte % (Auto) 1, Neutrophils (%) (Auto) 65, Lymphocytes (%) (Auto) 17, Monocytes (%) (Auto) 13, Eosinophils (%) (Auto) 3, Basophils (%) (Auto) 1, Neutrophils # (Auto) 4.1, Lymphocytes # (Auto) 1.1, Monocytes # (Auto) 0.8, Eosinophils # (Auto) 0.2, Basophils # (Auto) 0.0, Immature Granulocyte # (Auto) 0.1, Sodium Level 139, Potassium Level 4.1, Chloride Level 107, Carbon Dioxide Level 21, Anion Gap 11, Blood Urea Nitrogen 19, Creatinine 0.90, Estimat Glomerular Filtration Rate 81, BUN/Creatinine Ratio 21, Glucose Level 126, Calcium Level 9.5, Corrected Calcium 9.6, Total Bilirubin 1.0, Aspartate Amino Transf (AST/SGOT) 20, Alanine Aminotransferase (ALT/SGPT) 10, Alkaline Phosphatase 84, Total Protein 6.8, Albumin 3.9 10/25/21 11:40: Sodium Level 138, Potassium Level 4.1, Chloride Level 107, Carbon Dioxide Level 21, Anion Gap 10, Blood Urea Nitrogen 18, Creatinine 0.81, Estimat Glomerular Filtration Rate 91, BUN/Creatinine Ratio 22, Glucose Level 106, Calcium Level 9.5 10/30/21 05:40: Sodium Level 138, Potassium Level 4.2, Chloride Level 104, Carbon Dioxide Level 23, Anion Gap 11, Blood Urea Nitrogen 17, Creatinine 0.92, Estimat Glomerular Filtration Rate 79, BUN/Creatinine Ratio 18, Glucose Level 114, Calcium Level 9.2 11/03/21 08:35: White Blood Count 5.2, Red Blood Count 5.53, Hemoglobin 16.3, Hematocrit 49, Mean Corpuscular Volume 89, Mean Corpuscular Hemoglobin 30, Mean Corpuscular Hemoglobin Concent 33, Red Cell Distribution Width 13.0, Platelet Count 275, Mean Platelet Volume 9.5, Immature Granulocyte % (Auto) 0, Neutrophils (%) (Auto) 64, Lymphocytes (%) (Auto) 19, Monocytes (%) (Auto) 11, Eosinophils (%) (Auto) 4, Basophils (%) (Auto) 1, Neutrophils # (Auto) 3.3, Lymphocytes # (Auto) 1.0, Monocytes # (Auto) 0.6, Eosinophils # (Auto) 0.2, Basophils # (Auto) 0.0, Immature Granulocyte # (Auto) 0.0, Sodium Level 138, Potassium Level 4.2, Chloride Level 104, Carbon Dioxide Level 22, Anion Gap 12, Blood Urea Nitrogen 18, Creatinine 1.08, Estimat Glomerular Filtration Rate 66, BUN/Creatinine Ratio 17, Glucose Level 131, Calcium Level 9.8, Corrected Calcium 9.7, Total Bilirubin 0.8, Aspartate Amino Transf (AST/SGOT) 14, Alanine Aminotransferase (ALT/SGPT) 11, Alkaline Phosphatase 97, Total Protein 7.0, Albumin 4.1 Discharge Home Medications: Active Scripts Active HYDROcodone/APAP 5 MG/325 MG TAB (Acetaminophen/Hydrocodone Bitart) 1 Tab Tab 1 Ea PO Q4H PRN Rosuvastatin Calcium 10 Mg Tablet 10 Mg PO HS Clopidogrel (Clopidogrel Bisulfate) 75 Mg Tablet 75 Mg PO DAILY Reported Proventil Hfa (Albuterol Sulfate) 6.7 Gm Hfa.aer.ad 2 Puff INH Q6H PRN Docusate Sodium 100 Mg Capsule 100 Mg PO DAILY Aspirin EC (Aspirin) 81 Mg Tablet.dr 81 Mg PO DAILY Omeprazole 10 Mg Capsule.dr 10 Mg PO DAILY PRN Lisinopril 20 Mg Tablet 40 Mg PO DAILY TAKES 2 (20MG) TABS Carbidopa-Levo ER 25-100 Tab (Carbidopa/Levodopa) 1 Each Tablet.er 1 Each PO TID Tylenol Arthritis (Acetaminophen) 650 Mg Tablet.er 650 Mg PO BID PRN Instructions to patient/family Please see electronic discharge instructions given to patient. Diagnosis/Problems Diagnosis/Problems (1) Ankle fracture, right (2) Parkinsons (3) Bradycardia (4) CVA (cerebral vascular accident) VANNESA PARDO DO Nov 04, 2021 05:44
[2021-11-04 07:34] VITALS: BP 165/74
[2021-11-04] MEDS: CLOPIDOGREL 75 MG (PLAVIX) TABLET PO SCH (07:58)
[2021-11-04] MEDS: DOCUSATE SODIUM 100 MG (COLACE) CAP PO SCH (07:58)
[2021-11-04] MEDS: lisINopril 40 MG (PRINIVIL) TABLET PO SCH (07:58)
[2021-11-04] MEDS: SENNA W/DOCUSATE (SENOKOT S) TABLET PO SCH (07:58)
[2021-11-04] MEDS: SINEMET 25/100 (CARBIDOPA/LEVODOPA) TAB PO SCH ×2 (07:59→11:49)
[2021-11-04] MEDS: PANTOPRAZOLE 20 MG TABLET (PROTONIX) PO SCH (07:59)
[2021-11-04] MEDS: polyethylene glycoL POWDER 17 GM (MIRALAX) PACK PO SCH (08:00)
--- NOTE | 2021-11-04 08:43 | Therapy Team Discharge Summary ---
Therapy Discharge Summary Discharge Recommendations Date of Discharge Physical Therapy Patient came to rehab with right ankle fx, ORIF. Upon evaluation patient performed rolling independently, supine to sit mod assist, sit to supine min assist, sit <-> stand min assist, transfers min assist, car transfer min assist, ambulated 2' in the parallel bars with CGA, and propelled a manual WC 150' with SBA. Patient has been performing bed mobility and transfer training, balance and endurance training, functional strengthening, stair training, gait training, and education. Patient has made fair progress and has met his retirement goals except for ambulation. Now, patient performs rolling and supine <-> sit with independence, sit <-> stand and transfers with setup, car transfer with setup, no ambulation because patient cannot maintain NWB on RLE, can propel a manual WC over 150' with independence, and can hand picker an object from the floor with independence using a forester silviculture. Patient is being discharged from this facility today and will be discharged from PT at this time. Occupational Therapy Decreased Activ Tolerance, Decreased Safety Aware, Decreased UE Strength, Impaired Cognition, Impaired Self-Care Skills PT Prison Goals Glue Maker Bone Goals PT Glue Maker Bone Goals Time Frame: Nov 12, 2021 Roll Left to Right (QC): 6 Sit to Lying (QC): 6 Lying-Sitting on Side/Bed(QC): 6 Sit to Stand (QC): 4 (SBA) Chair/Ynt-gs-Ritoo Xfer(QC): 4 (SBA) Car Transfer (QC): 4 (SBA) Does the Patient Walk: Yes Walk 10 feet (QC): 4 (GA) Walk 10ft-Uneven Surface(QC): 4 (CGA) Walk 50ft with 2 Turns (QC): 4 (CGA) Walk 150 ft (QC): 88 Wheel 50 feet with 2 turns (QC: 6 1 Step (curb) (QC): 88 4 Steps (QC): 88 12 Steps (QC): 88 Picking up an Object (QC): 4 (CGA) OT Glue Maker Bone Goals Prison Goals Time Frame: Nov 12, 2021 Eating (QC): 6 (met) Oral Hygiene (QC): 6 (met) Shower/Bathe Self (QC): 5 Upper Body Dressing (QC): 6 Lower Body Dressing (QC): 5 On/Off Footwear (QC): 5 Toileting Hygiene (QC): 5 Toilet/Commode Transfer (QC): 4 (SBA) 1=Demonstrate adherence to instructed precautions during ADL tasks. 2=Patient will verbalize/demonstrate understanding of assistive devices/modifications for ADL. 3=Patient will improve strength/tolerance for activity to enable patient to perform ADL's. KAPIL CHÁVEZ PT Nov 04, 2021 08:43
--- NOTE | 2021-11-04 11:03 | D/C HH Face to Face Order ---
D/C HH Face to Face Orders Reconcile Patient Problems Problems Reviewed?: Yes Instructions for Patient HH Patient Instructions/FollowUp: PCP Physician to follow Patient: PCP Discharge Diet for Home: No Restrictions Patient Problems: Debility Patient Data-Allergies,Ht & Wt Patient Allergies: Coded Allergies: Penicillins (Verified Allergy, Unknown, Rash, 10/24/21) Sulfa (Sulfonamide Antibiotics) (Verified Allergy, Unknown, Hives, 10/24/21) adhesive tape (Verified Adverse Reaction, Unknown, Rash, 10/24/21) sulfacetamide (Verified Adverse Reaction, Unknown, 10/24/21) Home Health Need/Face to Face Date of Face to Face: Nov 04, 2021 Clinical Findings: Generalized weakness and fatigue, Immune-compromised, Instability, Muscle weakness, Non or partial weight bearing, Shortness of breath, Unsteady gait I have seen Pt zawl-rj-ipzp: Yes Discharged To: Home Diagnosis/Conditions: Debility Patient is Homebound due to: Greg fall risk due to instabilty, Muscle weakness, Pain w/ambulation Homebound Status Due to the above stated illness, injury or surgical procedure (medical condition or diagnosis) and associated clinical findings, the patient is homebound because of his/her inability to leave home except with aid of a supportive device and/or person AND leaving the home requires a considerable and taxing effort or is medically contraindicated. Pt req the following assistanc: Walker Home Health Nursing Orders Home Health Services Order: Nursing Services, Biogeographer-Evaluate & Treat, Physical Therapy-Evaluate & Treat Certify Stmt I certify that this patient is under my care and that I, a nurse practitioner or a physician; a patient assistant working with me, had a face to face encounter that - meets the physician face to face encounter requirements with this patient as dated. VANNESA PARDO DO Nov 04, 2021 11:03
[2021-11-04 12:08] VITALS: BP 165/74
--- NOTE | 2021-11-05 11:23 | Therapy Team Discharge Summary ---
Therapy Discharge Summary Discharge Recommendations Date of Discharge Nov 04, 2021 at 12:15 Occupational Therapy Patient came to rehab with right ankle fx, ORIF. Upon evaluation patient was max a for bathing, footwear, and toileting, mod a for lower body dressing, min a for oral care, sba for upper body dressing and set up for eating. While on rehab, OT focused on improving balance, endurance, strengthening, safety, memory and adherence to nwb during functional activities. 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 Now, pt performs toilet transfers, bathing, and upper body dressing with sba, min a for footwear, lower body dressing, and toileting,indep with eating and oral care. Patient is discharged from this facility and will be discharged from OT at this time. Decreased Activ Tolerance, Decreased Safety Aware, Decreased UE Strength, Impaired Cognition, Impaired Self-Care Skills PT Fci Goals Fci Goals PT Fci Goals Time Frame: Nov 12, 2021 Roll Left to Right (QC): 6 Sit to Lying (QC): 6 Lying-Sitting on Side/Bed(QC): 6 Sit to Stand (QC): 4 (SBA) Chair/Ffg-jo-Xnaim Xfer(QC): 4 (SBA) Car Transfer (QC): 4 (SBA) Does the Patient Walk: Yes Walk 10 feet (QC): 4 (GA) Walk 10ft-Uneven Surface(QC): 4 (CGA) Walk 50ft with 2 Turns (QC): 4 (CGA) Walk 150 ft (QC): 88 Wheel 50 feet with 2 turns (QC: 6 1 Step (curb) (QC): 88 4 Steps (QC): 88 12 Steps (QC): 88 Picking up an Object (QC): 4 (CGA) OT Hydro Generation Manager Goals Hydro Generation Manager Goals Time Frame: Nov 12, 2021 Eating (QC): 6 (met) Oral Hygiene (QC): 6 (met) Shower/Bathe Self (QC): 5 (not met) Upper Body Dressing (QC): 6 (not met) Lower Body Dressing (QC): 5 (not met) On/Off Footwear (QC): 5 (not met) Toileting Hygiene (QC): 5 (not met) Toilet/Commode Transfer (QC): 4 (SBA) 1=Demonstrate adherence to instructed precautions during ADL tasks. 2=Patient will verbalize/demonstrate understanding of assistive devices/modifications for ADL. 3=Patient will improve strength/tolerance for activity to enable patient to perform ADL's. Rosalee Laguna OT Nov 05, 2021 11:23
== END 2021-11-04 12:15 | disposition home health service (06) | DRG 561 ==
PROVIDERS: ADMIT Internal Medicine; ATTEND Internal Medicine
DX: S82.891D Other fracture of right lower leg, subsequent encounter for closed fracture with routine healing (principal); G20 Parkinson's disease; R00.1 Bradycardia, unspecified; I10 Essential (primary) hypertension; G47.33 Obstructive sleep apnea (adult) (pediatric); R33.9 Retention of urine, unspecified; E78.00 Pure hypercholesterolemia, unspecified; E78.2 Mixed hyperlipidemia; E66.9 Obesity, unspecified; H91.90 Unspecified hearing loss, unspecified ear; Z85.46 Personal history of malignant neoplasm of prostate; V89.9XXD Person injured in unspecified vehicle accident, subsequent encounter; I69.322 Dysarthria following cerebral infarction; I69.398 Other sequelae of cerebral infarction; Z87.891 Personal history of nicotine dependence; Z68.34 Body mass index [BMI] 34.0-34.9, adult; Z79.899 Other long term (current) drug therapy; Z79.02 Long term (current) use of antithrombotics/antiplatelets
CPT/HCPCS: 36415; 73610; 80048; 80053; 85025; 93005

== ENCOUNTER → 2021-11-11 | Outpatient (CLI) | payer MEDICARE ==
[~2021-11-11] MED LIST changes: +ACHD5005 PO; -ALPRAZolam 0.25 MG (XANAX) TAB PO PRN; +ASPI-1238 PO; -BISACODYL 10 MG SUPP (DULCOLAX) PR PRN; -CALCIUM CARBONATE 500 MG (TUMS) TAB.CHEW PO PRN; +CARV3.122 PO; +CLOP75TA28 PO; +DOCU100C37 PO; -DOCUSATE SODIUM 100 MG (COLACE) CAP PO PRN; -FLEET ENEMA ADULT 1 EA BTL PR PRN; -LACTULOSE SYRUP 10GM/15ML (ENULOSE) 30ML UDC PO PRN; -LOPERAMIDE 2 MG (IMODIUM) TABLET PO PRN; -MELATONIN 3 MG TABLET PO PRN; +ROSU10TA28 PO; +ROSU5TAB13 PO; +RT-ALBUINH INH; -diphenhydrAMINE 25 MG TAB (BENADRYL) PO PRN; -guaiFENesin/CODEINE (ROBITUSSIN AC) 10ML UDC PO PRN
--- NOTE | 2021-11-11 14:02 | Diagnostic Imaging Report ---
INDICATION: Right ankle pain. TIME OF EXAM: 11:24 AM. FINDINGS: Three views of the right ankle were obtained. There is a lateral plate and numerous screws transfixing the distal fibula. There is are two fully threaded syndesmotic screws. Ankle alignment is normal. The ankle mortise is well maintained. The talar dome is smooth. There is a lucency on the lateral view extending slightly obliquely through the posterior aspect of the tibia. This could potentially be located within the distal fibula on this lateral view. This likely represents a residual fracture line. No other fractures are seen. IMPRESSION: There is a residual lucency noted on the lateral view, as described. Orthopedic hardware is intact and the ankle alignment is anatomic. Dictated by: Dictated on workstation # [id number]
== END ==
LOC: ORTHO 11:08
PROVIDERS: ATTEND Orthopaedic Surgery
DX: M25.571 Pain in right ankle and joints of right foot (principal)
CPT/HCPCS: 73610; G0463; 99212

== ENCOUNTER → 2021-12-09 | Outpatient (CLI) | payer MEDICARE ==
--- NOTE | 2021-12-09 12:09 | Diagnostic Imaging Report ---
INDICATION: Right ankle fracture follow-up. Three views of the right ankle are obtained and compared with 11/11/2021. FINDINGS: Plate and screws are seen fusing the distal fibula in anatomic alignment. There are two screws fusing the distal tibia and fibula. The alignment is stable compared to the prior study with no new abnormality. IMPRESSION: Status post ORIF of distal fibular fracture with no change in hardware alignment. There is no new abnormality. Dictated by: Dictated on workstation # [id number]
== END ==
LOC: ORTHO 10:15
PROVIDERS: ATTEND Orthopaedic Surgery
DX: Z09 Encounter for follow-up examination after completed treatment for conditions other than malignant neoplasm (principal); Z96.698 Presence of other orthopedic joint implants
CPT/HCPCS: 73610; G0463; 99212

== ENCOUNTER 2022-01-05 05:29 | Outpatient (CLI) | payer MEDICARE ==
[~2022-01-05] VITALS: Ht 172.7 cm; Wt 104.5 kg
[2022-01-06] MEDS ORDERED: SPIR25TA5 PO (15:55)
== END 2022-01-06 16:12 ==
LOC: PREOP 05:29
PROVIDERS: ATTEND Orthopaedic Surgery
DX: Z01.818 Encounter for other preprocedural examination (principal)

== ENCOUNTER 2022-01-12 06:15 | Day surgery (SDC) | payer MEDICARE ==
[2022-01-12] VITALS (11 sets, daily range): BP systolic 125–163; BP diastolic 73–94
[~2022-01-12] VITALS: Ht 172.7 cm; Wt 104.5 kg
[~2022-01-12 06:15] MED LIST changes: +SPIR25TA5 PO
[2022-01-12] MEDS ORDERED: LACTATED RINGERS 1,000 ML IV PRN (06:30)
[2022-01-12] MEDS ORDERED: CLINDAMYCIN 600 MG/50 ML IVPB 50 ML IV ONE (06:30)
[2022-01-12] MEDS ORDERED: BUPIVACAINE 0.25% 30 ML (SENSORCAINE) VIAL ONE (07:04)
[2022-01-12] MEDS ORDERED: fentaNYL INJ 100 MCG/2 ML AMP ONE (07:10)
[2022-01-12] MEDS ORDERED: ONDANSETRON 4 MG/2 ML (SDV) Z0FRAN ONE (07:27)
[2022-01-12] MEDS ORDERED: LIDOCAINE PF 2% 5 ML (XYLOCAINE) VIAL ONE (07:27)
[2022-01-12] MEDS ORDERED: proPOfol 200 MG/20 ML (DIPRIVAN) VIAL IV ONE (07:27)
[2022-01-12] MEDS ORDERED: SEVOFLURANE (ULTANE) 15 ML INHAL SOLN ONE (07:55)
--- NOTE | 2022-01-12 08:06 | Anesthesia-General Post-Op ---
General Patient Condition Mental Status/LOC: Same as Preop Cardiovascular: Satisfactory Nausea/Vomiting: Absent Respiratory: Satisfactory Pain: Controlled Complications: Absent Post Op Complications Complications None Follow Up Care/Instructions Patient Instructions None needed. Anesthesia/Patient Condition Patient Condition Patient is doing well, no complaints, stable vital signs, no apparent adverse anesthesia problems. No complications reported per nursing. AGUSTÍN SANDOVAL CRNA Jan 12, 2022 08:06
--- NOTE | 2022-01-12 08:10 | Operative Report - Ortho ---
Operative Report Surgeon (s)/Mold Injector (s) Surgeon ROBBIE HAMM MD Mold Injector n/a Pre-Operative Diagnosis right ankle syndesmotic injury with retained hardware Post-Operative Diagnosis same Operative Report Date of Procedure: Jan 12, 2022 Name of Procedure Performed: Removal of Right Ankle Syndesmotic Screws Description & Findings After obtaining informed consent and marking the patient in the preoperative holding area, patient did receive antibiotics and was taken to the operating room. General anesthesia was induced. Surgical timeout was taken. The right lower extremity was prepped and draped in the usual sterile fashion. Incision was made over the distal aspect of the lateral scar. C-arm was used to localize the heads of the syndesmotic screws and they were removed using the appropriate screwdriver. Final C-arm images were obtained and transferred to PACS. Wounds were irrigated with normal saline. Closed with 3-0 nylon suture. Injected subcutaneously with local anesthetic and dressed with ketaconazole, xeroform, 4x4s, Kerlix, and ESE wrap. Patient tolerated the procedure well and was stable to the recovery room. Anesthesia Type General Estimated Blood Loss minimal Specimen(s) collected/removed None ROBBIE HAMM MD Jan 12, 2022 08:10
[2022-01-12] MEDS ORDERED: fentaNYL INJ 100 MCG/2 ML AMP IVP ONE (08:15)
[2022-01-12] MEDS ORDERED: ONDANSETRON 4 MG/2 ML (SDV) Z0FRAN IVP PRN (08:15)
[2022-01-12] MEDS ORDERED: OXC5T PO (08:15)
[2022-01-12] MEDS ORDERED: morphine INJ 10 MG/ML 1ML (SYR OR VIAL) IVP ONE (08:15)
--- NOTE | 2022-01-12 08:51 | Diagnostic Imaging Report ---
INDICATION: Fluoroscopy for ankle surgery on the right. Fluoroscopy was provided in the OR during right ankle surgery. 11 seconds of fluoroscopic time was utilized. 2 images were obtained. Images demonstrate a lateral plate and multiple screws transfixing distal fibula. Ankle alignment is normal. IMPRESSION: Fluoroscopy for right ankle surgery. Dictated by: Dictated on workstation # [id number]
[2022-01-12] MEDS ORDERED: KETOCONAZOLE 2% CREAM 15 GM (NIZORAL) TOP SCH (09:00)
== END 2022-01-12 10:05 | disposition home or self-care (01) ==
LOC: SDC 06:15
PROVIDERS: ATTEND Orthopaedic Surgery
DX: Z47.2 Encounter for removal of internal fixation device (principal)
CPT/HCPCS: 76000; 87081

== ENCOUNTER → 2022-01-27 | Outpatient (CLI) | payer MEDICARE ==
[~2022-01-27] MED LIST changes: +OXC5T PO
== END ==
LOC: ORTHO 09:05
PROVIDERS: ATTEND Orthopaedic Surgery
DX: Z47.89 Encounter for other orthopedic aftercare (principal)

== ENCOUNTER → 2022-02-24 | Outpatient (CLI) | payer MEDICARE | LOC: ORTHO 09:23 | PROVIDERS: ATTEND Orthopaedic Surgery | DX: Z47.89 Encounter for other orthopedic aftercare (principal); Z98.890 Other specified postprocedural states ==